=== PATIENT | female | born 1970 | race Two or more races ===

== ENCOUNTER 2016-08-11 08:27 | Emergency (ER) | payer BC ==
[2016-08-11] MEDS ORDERED: SODIUM CHLORIDE 0.9% 1,000 ML IV STA ×2 (08:53)
--- NOTE | 2016-08-11 08:55 | ED ---
General Adult HPI - General Chief complaint: Recheck/Abnormal Lab/Rx Stated complaint: thyroid problems Time Seen by Provider: 08/11/16 08:47 Source: patient, RN notes reviewed Mode of arrival: ambulatory Limitations: no limitations - History of Present Illness Initial comments: Patient 46-year-old female who presents emergency room today with a chief complaint of increased vaginal bleeding. She does admit to a history of thyroid disease. States when her thyroid is acting up she has heavy periods. She states that she's been having heavy bleeding for the last 5 days. States beginning to feel somewhat lightheaded and dizzy at times when standing up. Patient does admit that she has switched doctors. She states she had her thyroid checked out 3 weeks ago was prescribed new medication to begin to take. She states it is at the pharmacy and she has not gotten around to getting it picked up. She states she's been taking her previous medication. Patient denies any other complaints or symptoms. Patient denies any recent fever, chills , shortness of breath, chest pain, back pain, nausea or vomiting, numbness or tingling, dysuria or hematuria, constipation or diarrhea, headaches or visual changes, or any other complaints. - Related Data Home Medications Medication Instructions Recorded Confirmed Cholecalciferol [Vitamin D3] 2,000 unit PO DAILY 08/11/16 08/11/16 Levothyroxine Sodium [Synthroid] 125 mcg PO DIRECTED 08/11/16 08/11/16 Previous Rx's Medication Instructions Recorded Nitrofurantoin Monohyd/M-Cryst 100 mg PO Q12HR #14 cap 08/11/16 [Macrobid] Allergies Allergy/AdvReac Type Severity Reaction Status Date / Time No Known Allergies Allergy Verified 08/11/16 09:23 Review of Systems ROS Statement: Those systems with pertinent positive or pertinent negative responses have been documented in the HPI. ROS Other: All systems not noted in ROS Statement are negative. Past Medical History Past Medical History: Thyroid Disorder History of Any Multi-Drug Resistant Organisms: None Reported Past Surgical History: No Surgical Hx Reported Past Psychological History: No Psychological Hx Reported Smoking Status: Never smoker Past Alcohol Use History: Occasional Past Drug Use History: None Reported General Exam - General Exam Comments Initial Comments: General: The patient is awake and alert, in no distress, and does not appear acutely ill. Eye: Pupils are equal, round and reactive to light, extra-ocular movements are intact. No nystagmus. There is normal conjunctiva bilaterally. No signs of icterus. Ears, nose, mouth and throat: There are moist mucous membranes and no oral lesions. Neck: The neck is supple, there is no tenderness or JVD. Cardiovascular: There is a regular rate and rhythm. No murmur, rub or gallop is appreciated. Respiratory: Lungs are clear to auscultation, respirations are non-labored, breath sounds are equal. No wheezes, stridor, rales, or rhonchi. Gastrointestinal: Soft, non-distended, non-tender abdomen without masses or organomegaly noted. There is no rebound or guarding present. No CVA tenderness. Bowel sounds are unremarkable. Musculoskeletal: Normal ROM, no tenderness. Strength 5/5. Sensation intact. Pulses equal bilaterally 2+. Neurological: A&O x 3. CN II-XII intact, There are no obvious motor or sensory deficits. Coordination appears grossly intact. Speech is normal. Skin: Skin is warm and dry and no rashes or lesions are noted. Psychiatric: Cooperative, appropriate mood & affect, normal judgment. Limitations: no limitations Course Vital Signs 08/11/16 08:40 Temperature 99.0 F Pulse Rate 105 H Respiratory 18 Rate Blood Pressure 156/93 O2 Sat by Pulse 98 Oximetry EKG Findings - EKG Comments: EKG Findings:: EKG performed at 0926: Shows sinus bradycardia at 59 bpm. VA interval 124. QRS 92. QT/QTc 446/441. No acute ST changes. Medical Decision Making - Medical Decision Making Patient reexamined at this time shows no signs of distress. She is resting comfortably in stretcher does admit that she's feeling better after fluids. Her labs been reviewed hemoglobin stable. She does admit she had bleeding for the last month. She was advised that she should follow up with LITHOGRAPH OPERATOR. Patient 's states still pending at this time. She does admit that she has medication that she has not picked up from the family doctor 3 weeks ago at the pharmacy that she is began taking. Advised to start this medication. Advised to follow- up the family doctor for further evaluation of her thyroid. Patient does admit to some increased urinary frequency. Does have vaginal bleeding. Large amount of blood in the urinalysis with few white cells. Will be given a course of antibiotics as culture pending. At this time patient is comfortable feeling better will be discharged home advised increased fluids and follow-up as discussed. - Lab Data Result diagrams: 08/11/16 09:10 08/11/16 09:10 Lab Results 08/11/16 08/11/16 08/11/16 Range/Units 09:10 09:10 09:10 WBC 9.5 (3.8-10.6) k/uL RBC 3.89 (3.80-5.40) m/uL Hgb 12.3 (11.4-16.0) gm/dL Hct 37.8 (34.0-46.0) % MCV 97.1 (80.0-100.0) fL MCH 31.6 (25.0-35.0) pg MCHC 32.5 (31.0-37.0) g/dL RDW 12.5 (11.5-15.5) % Plt Count 383 (150-450) k/uL Neutrophils % 75 % Lymphocytes % 18 % Monocytes % 4 % Eosinophils % 1 % Basophils % 1 % Neutrophils # 7.1 (1.3-7.7) k/uL Lymphocytes # 1.7 (1.0-4.8) k/uL Monocytes # 0.4 (0-1.0) k/uL Eosinophils # 0.1 (0-0.7) k/uL Basophils # 0.1 (0-0.2) k/uL PT (9.0-12.0) sec INR (<1.1) APTT (22.0-30.0) sec Sodium 141 (137-145) mmol/L Potassium 4.3 (3.5-5.1) mmol/L Chloride 108 H (98-107) mmol/L Carbon Dioxide 23 (22-30) mmol/L Anion Gap 10 mmol/L BUN 8 (7-17) mg/dL Creatinine 0.65 (0.52-1.04) mg/dL Est GFR (MDRD) Af Amer >60 (>60 ml/min/1.73 sqM) Est GFR (MDRD) Non-Af >60 (>60 ml/min/1.73 sqM) Glucose 104 H (74-99) mg/dL Calcium 9.5 (8.4-10.2) mg/dL Total Bilirubin 0.6 (0.2-1.3) mg/dL AST 20 (14-36) U/L ALT 26 (9-52) U/L Alkaline Phosphatase 58 (38-126) U/L Total Protein 7.8 (6.3-8.2) g/dL Albumin 4.3 (3.5-5.0) g/dL Urine Color Urine Appearance (Clear) Urine pH (5.0-8.0) Ur Specific [place] (1.001-1.035) Urine Protein (Negative) Urine Glucose (UA) (Negative) Urine Ketones (Negative) Urine Blood (Negative) Urine Nitrite (Negative) Urine Bilirubin (Negative) Urine Urobilinogen (<2.0) mg/dL Ur Leukocyte Esterase (Negative) Urine RBC (0-5) /hpf Urine WBC (0-5) /hpf Ur Squamous Epith Cells (0-4) /hpf Urine HCG, Qual Not Detected (Not Detectd) 08/11/16 08/11/16 Range/Units 09:10 09:10 WBC (3.8-10.6) k/uL RBC (3.80-5.40) m/uL Hgb (11.4-16.0) gm/dL Hct (34.0-46.0) % MCV (80.0-100.0) fL MCH (25.0-35.0) pg MCHC (31.0-37.0) g/dL RDW (11.5-15.5) % Plt Count (150-450) k/uL Neutrophils % % Lymphocytes % % Monocytes % % Eosinophils % % Basophils % % Neutrophils # (1.3-7.7) k/uL Lymphocytes # (1.0-4.8) k/uL Monocytes # (0-1.0) k/uL Eosinophils # (0-0.7) k/uL Basophils # (0-0.2) k/uL PT 10.1 (9.0-12.0) sec INR 1.0 (<1.1) APTT 24.6 (22.0-30.0) sec Sodium (137-145) mmol/L Potassium (3.5-5.1) mmol/L Chloride (98-107) mmol/L Carbon Dioxide (22-30) mmol/L Anion Gap mmol/L BUN (7-17) mg/dL Creatinine (0.52-1.04) mg/dL Est GFR (MDRD) Af Amer (>60 ml/min/1.73 sqM) Est GFR (MDRD) Non-Af (>60 ml/min/1.73 sqM) Glucose (74-99) mg/dL Calcium (8.4-10.2) mg/dL Total Bilirubin (0.2-1.3) mg/dL AST (14-36) U/L ALT (9-52) U/L Alkaline Phosphatase (38-126) U/L Total Protein (6.3-8.2) g/dL Albumin (3.5-5.0) g/dL Urine Color Light Red Urine Appearance Clear (Clear) Urine pH 6.0 (5.0-8.0) Ur Specific [place] 1.013 (1.001-1.035) Urine Protein Trace H (Negative) Urine Glucose (UA) Negative (Negative) Urine Ketones Negative (Negative) Urine Blood Moderate H (Negative) Urine Nitrite Negative (Negative) Urine Bilirubin Negative (Negative) Urine Urobilinogen <2.0 (<2.0) mg/dL Ur Leukocyte Esterase Trace H (Negative) Urine RBC >182 H (0-5) /hpf Urine WBC 19 H (0-5) /hpf Ur Squamous Epith Cells 1 (0-4) /hpf Urine HCG, Qual (Not Detectd) Disposition Clinical Impression: Dysfunctional uterine bleeding, UTI (urinary tract infection) Disposition: HOME SELF-CARE Condition: Good Instructions: Dysfunctional Uterine Bleeding (ED) Additional Instructions: Please follow-up with family doctor and LITHOGRAPH OPERATOR as discussed. Please return here to the emergency room symptoms increase worsen or for any other concerns. Prescriptions: Nitrofurantoin Monohyd/M-Cryst [Macrobid] 100 mg PO Q12HR #14 cap Referrals: Grady Mckeon DO [Primary Care Provider] - 1-2 days Time of Disposition: 10:02
[2016-08-11 09:40] LABS: Basophils # (A) 0.1 k/uL (0-0.2); Basophils % (A) 1 %; CH 31.9; Eosinophils # (A) 0.1 k/uL (0-0.7); Eosinophils % (A) 1 %; HCT 37.8 % (34.0-46.0); HDW 2.17; HGB 12.3 gm/dL (11.4-16.0); Luc # (Auto) 0.16; Luc % (Auto) 2; Lymphocytes # (A) 1.7 k/uL (1.0-4.8); Lymphocytes % (A) 18 %; MCH 31.6 pg (25.0-35.0); MCHC 32.5 g/dL (31.0-37.0); MCV 97.1 fL (80.0-100.0); Mean Platelet Volume 6.6; Monocytes # (A) 0.4 k/uL (0-1.0); Monocytes % (A) 4 %; Neutrophils # (A) 7.1 k/uL (1.3-7.7); Neutrophils % (A) 75 %; RBC 3.89 m/uL (3.80-5.40); RDW 12.5 % (11.5-15.5); WBC 9.5 k/uL (3.8-10.6); WBC (Perox) 9.63
[2016-08-11 09:48] LABS: Partial Thromboplastin Time 24.6 sec (22.0-30.0); Prothrombin Time 10.1 sec (9.0-12.0)
[2016-08-11 09:50] LABS: Appearance,Urine Clear (Clear); Bilirubin,Urine Negative (Negative); Glucose,Urine (UA) Negative (Negative); Ketones,Urine Negative (Negative); Leukocyte Esterase,Urine Trace (Negative); Nitrite,Urine Negative (Negative); Particle Count 2082; Protein,Urine Trace (Negative); RBC,Urine >182 /hpf (0-5); Specific Gravity,Urine 1.013 (1.001-1.035); Squamous Epithelial Cell,Urine 1 /hpf (0-4); UA Billing (MACRO vs. MICRO) MICRO; Urobilinogen,Urine <2.0 mg/dL (<2.0); WBC,Urine 19 /hpf (0-5)
[2016-08-11 09:51] LABS: ALT 26 U/L (9-52); AST 20 U/L (14-36); Alkaline Phosphatase 58 U/L (38-126); Anion Gap 10 mmol/L; Blood Urea Nitrogen 8 mg/dL (7-17); Calcium 9.5 mg/dL (8.4-10.2); Carbon Dioxide 23 mmol/L (22-30); Chloride 108 mmol/L (98-107); Glucose 104 mg/dL (74-99); Non-African American GFR(MDRD) >60 (>60 ml/min/1.73 sqM); Potassium 4.3 mmol/L (3.5-5.1); Sodium 141 mmol/L (137-145); Total Bilirubin 0.6 mg/dL (0.2-1.3); Total Protein 7.8 g/dL (6.3-8.2)
[2016-08-11 10:17] VITALS: BP 142/81; PULSE 60; RESP 17; TEMP 98
== END 2016-08-11 10:20 | disposition home or self-care (01) ==
LOC: EC 08:27
DX: N39.0 Urinary tract infection, site not specified (principal); N93.8 Other specified abnormal uterine and vaginal bleeding; E07.9 Disorder of thyroid, unspecified; Z79.899 Other long term (current) drug therapy
CPT/HCPCS: 36415; 80053; 81001; 81025; 84439; 84443; 85025; 85610; 85730; 93005; 99284

== ENCOUNTER 2017-05-24 09:17 | Observation (INO) | payer BC, OTHER ==
[2017-05-23 09:27] VITALS: BMI 29.8
[~2017-05-24 09:17] MED LIST: DEXAMETHASONE SOD PHOSPHATE 10 MG/ML 1 ML VIAL IV ONE; LIDOCAINE 1% 20 ML VIAL (10MG/ML) FOR IV START INTRADERMA PRN; MIDAZOLAM 2 MG/2 ML VIAL IV PRN; ONDANSETRON 4 MG/2 ML VIAL IVP ONE; SCOPOLAMINE 1.5MG/72HR PATCH TRANSDERM ONE; ceFAZolin IN SWFI 2 GM/20 ML SYRINGE IVP ONE
[2017-05-24] MEDS: LACTATED RINGERS 1,000 ML IV SCH ×3 (09:38→18:41)
--- NOTE | 2017-05-24 09:46 | P.HPOB ---
History of Present Illness H&P Date: 05/24/17 Chief Complaint: Dysmenorrhea and menorrhagia La is a 46-year-old female with heavy vaginal bleeding and passage of baseball size clots with her cycles. This is been going on for more than a year in her symptoms seem to be worsening. Due to the lack large size for clots she is often unable to leave the house or function at all due to the amount of pain it is causing. Discussed with the patient treatment options she had Darrell mead on hormonal management and well and ablation may help due to the dysmenorrhea is also possible make her symptoms of pain worse. Therefore we are moving forward with a robotic-assisted laparoscopic hysterectomy possible IZZY, possible BSO. Risks/benefits/alternatives to this procedure were discussed with the patient in detail and all questions were answered for her prior to proceeding to the operating room. Risks did include but were not limited to damage to bladder, bowel, vascular injuries, nerve damage, bleeding and infection. On physical exam vital signs are stable and afebrile. Heart regular, lungs clear, extremities are without pain. Osteopathic exams unremarkable. Pelvic exam generally speaking is also unremarkable. Assessment menorrhagia and dysmenorrhea. Plan robotic-assisted laps up hysterectomy possible IZZY/BSO Past Medical History Past Medical History: Thyroid Disorder Additional Past Medical History / Comment(s): hx irregular periods with heavy vaginal bleeding History of Any Multi-Drug Resistant Organisms: None Reported Past Surgical History: No Surgical Hx Reported Past Anesthesia/Blood Transfusion Reactions: No Reported Reaction Additional Past Anesthesia/Blood Transfusion Reaction / Comment(s): pt states has never received anesthesia Smoking Status: Never smoker - Past Family History Mother Family Medical History: No Reported History Medications and Allergies Home Medications Medication Instructions Recorded Confirmed Type Cholecalciferol [Vitamin D3] 2,000 unit PO DAILY 08/11/16 05/24/17 History Levothyroxine Sodium [Synthroid] 125 mcg PO DAILY 08/11/16 05/24/17 History Allergies Allergy/AdvReac Type Severity Reaction Status Date / Time No Known Allergies Allergy Verified 05/24/17 09:26 Exam Osteopathic Statement: *. No significant issues noted on an osteopathic structural exam other than those noted in the History and Physical/Consult. - Vital Signs Vital signs: Vital Signs Temp Pulse Resp BP Pulse Ox 05/24/17 09:29 98.1 F 69 16 170/95 96
[2017-05-24] MEDS ORDERED: NEOSTIGMINE 1 MG/ML 10 ML VIAL ONE (09:50)
[2017-05-24] MEDS ORDERED: MIDAZOLAM 2 MG/2 ML VIAL ONE (09:50)
[2017-05-24] MEDS ORDERED: ePHEDrine SULFATE/0.9% NACL/PF 50 MG/5 ML SYRINGE IV ONE (09:50)
[2017-05-24] MEDS ORDERED: SUCCINYLCHOLINE CHLORIDE 100 MG/5 ML SYR IV ONE (09:50)
[2017-05-24] MEDS ORDERED: GLYCOPYRROLATE 0.2 MG/ML 2 ML VIAL ONE (09:50)
[2017-05-24] MEDS ORDERED: LIDOCAINE 1% INJ 10MG/ML (20 ML MDV) ONE (09:50)
[2017-05-24] MEDS ORDERED: ROCURONIUM BROMIDE 10 MG/ML 10 ML VIAL IV ONE (09:50)
[2017-05-24] MEDS ORDERED: KETOROLAC 30 MG/ML 1 ML VIAL ONE (09:50)
[2017-05-24] MEDS ORDERED: PROPOFOL 10 MG/ML 20 ML VIAL IV ONE (09:50)
[2017-05-24] MEDS ORDERED: fentaNYL (PF) 50 MCG/ML 2 ML AMP ONE (09:50)
[2017-05-24] MEDS ORDERED: BUPIVACAINE (PF) 0.5% 30 ML VIAL SQ ONE (10:13)
[2017-05-24] MEDS ORDERED: VASOPRESSIN 20 UNIT/ML 1 ML VIAL SQ ONE (10:45)
[2017-05-24] MEDS ORDERED: LACTATED RINGERS 1,000 ML IV ONE (11:26)
[2017-05-24] MEDS ORDERED: ONDANSETRON 4 MG/2 ML VIAL IVP PRN (11:28)
[2017-05-24] MEDS ORDERED: Acetaminophen-Codeine 300-30mg TAB PO PRN ×2 (11:28)
[2017-05-24] MEDS ORDERED: SIMETHICONE 80 MG CHEWABLE PO PRN (11:28)
[2017-05-24] MEDS ORDERED: diphenhydrAMINE 50 MG/ML 1 ML VIAL IVP PRN (11:28)
--- NOTE | 2017-05-24 11:37 | P.OP ---
Date of Procedure: 05/24/17 Preoperative Diagnosis: Menorrhagia and dysmenorrhea Postoperative Diagnosis: Same Procedure(s) Performed: Robotic-assisted laparoscopic vaginal hysterectomy Anesthesia: HILARY Surgeon: Evaristo Lambert Jigmaker #1: Jinny Montoya Estimated Blood Loss (ml): 75 IV fluids (ml): 1,000 Urine output (ml): 300 Pathology: other (Uterus and cervix) Condition: stable Disposition: floor Operative Findings: Normal uterus and fallopian tubes and ovaries. However posterior cul-de-sac was almost completely absent making this a technically challenging case requiring vaginal removal of the uterus and closure vaginally. Description of Procedure: Patient was taken to the operating suite where a general anesthetic was found to be adequate. She was prepped and draped in the normal sterile fashion and placed in the dorsal lithotomy position. Initially a speculum was inserted into the vagina and the anterior lip of the cervix was identified and grasped with a single-tooth tenaculum. Uterus was then sounded to 8 cm and the cup size was measured to 3 cm. A Shayna manipulator was then inserted without difficulty with suture placed at 9 and 3:00 to help with removal of the uterus. Mary cath was placed and other instruments were removed. Gloves were changed and attention was turned to the abdominal portion of the procedure. Initially 2 mL of half percent Marcaine was injected 2 cm above the umbilicus and through this injected anesthetic a 8 mm skin incision was made. Through this incision under direct visualization with an optical trocar and sleeve the camera was inserted. Once peritoneal placement was assured gas was allowed to fully insufflate the abdomen and patient's placement steep Trendelenburg position. Robot was brought in and docked and in the one arm a Metzenbaum scissor was placed in the 2 arm a [place] grasper. At this point did break scrub and go to the console. Observations pelvis were noted. First the left utero-ovarian ligament was identified cauterized and transected. Fallopian tube and broad ligament tissues through the mesosalpinx were then cauterized and cut to the round ligament. Round layer was then cauterized transected and skeletonization of the vascularity on the left side of the uterus was performed using cautery. Once this was freed up best were identified and cauterized. Bladder flap was then identified and undermined with [place] grasper and incised with the scissor this was done across face uterus and the bladder was dissected out of the operative field. Once this was completed the right side of the uterus was developed in a similar fashion. At this point balloon was blown up Shayna manipulator and retroversion of the uterus was performed and uterus was pushed all the way in. Despite bleeding we could feel the cup on the Shayna manipulator and an anterior colpotomy was attempted but was unable to find the blue cup. I did do 2 separate incisions neither of which I can find the blue cup despite palpating it could not locate its position inside the vagina. Uterus is therefore anteverted sharply and despite attempts I could also not find it posteriorly therefore instruments were removed and robot was undocked. At this point we did switch to a vaginal hysterectomy once instruments were in place weighted speculum was inserted into the vagina and an anterior retractor was used. Single-tooth tenaculum was then used to grasp the anterior cervix and with downward traction I did place dilute Pitressin solution circumferentially around the cervix and a knife was used to incise this tissue blunt dissection of the vaginal close off the cervix was then performed. Once this was accomplished I was able to locate an anterior colpotomy and therefore a 90 angle retractor was placed. Radha clamps then used to clamp the remainder of the cardinal ligament tissues this was done in approximately 3 bites per side to separate the vagina cervix and uterus from the vagina. Uterus was then brought out and sent to pathology for evaluation. No bleeding is noted from any of the pedicles therefore the boundaries of the vaginal cuff were identified and grasped with Allis clamps and then the vagina was closed in a running locking fashion as per usual in a vaginal hysterectomy. Hemostasis is noted. Once this was completed, camera was reinserted the abdomen and the abdomen was reinsufflated no bleeding is noted along the pedicles therefore camera was removed and gas was again allowed to expel from the abdomen. At this point Dr. Montoya did do a pair of the incision subcuticularly and I did do a cystoscopy with good flow noted from both ureteral jets. All instruments were then removed sponge, lap, needle counts were all correct 2 and patient was then taken to the recovery room in stable and satisfactory condition. It is noted 8 more cc of 1/2 percent Marcaine was injected around these incisions.
[2017-05-24] MEDS: HYDROmorphone 0.5 MG/0.5 ML SYRINGE IVP PRN ×3 (12:00→12:43)
[2017-05-24 15:27] VITALS: PULSE 76
[2017-05-24] MEDS: KETOROLAC 30 MG/ML 1 ML VIAL IVP PRN (21:03)
[2017-05-25] MEDS: SENNOSIDES-DOCUSATE SODIUM 1 EACH TAB PO SCH ×2 (00:51→07:34)
[2017-05-25] MEDS ORDERED: LEVOTHYROXINE 125 MCG TAB PO SCH (06:30)
[2017-05-25] MEDS: KETOROLAC 30 MG/ML 1 ML VIAL IVP PRN (07:36)
[2017-05-25 07:40] LABS: Basophils % (A) 0 %; Eosinophils % (A) 0 %; HCT 27.5 % (34.0-46.0); Lymphocytes # (A) 1.2 k/uL (1.0-4.8); Lymphocytes % (A) 8 %; MCH 29.1 pg (25.0-35.0); MCHC 31.3 g/dL (31.0-37.0); MCV 92.9 fL (80.0-100.0); Mean Platelet Volume 7.4; Monocytes # (A) 0.7 k/uL (0-1.0); Monocytes % (A) 5 %; Neutrophils % (A) 86 %; Platelet Count 402 k/uL (150-450); RBC 2.95 m/uL (3.80-5.40); RDW 14.5 % (11.5-15.5); WBC 15.2 k/uL (3.8-10.6)
[2017-05-25 07:44] LABS: HGB 8.6 gm/dL (11.4-16.0)
[2017-05-25 08:18] VITALS: BP 111/69; RESP 18; TEMP 98.5
--- NOTE | 2017-05-25 09:14 | P.PN ---
Progress Note - Text Progress Note Date: 05/25/17 La seen and evaluated postop day 1. Overall she is doing well. Her vital signs are stable and afebrile. Heart regular, lungs clear, extremities are without pain. She does have bowel sounds are noted incisions are intact. She has not passed flatus has not retried regular diet therefore we will advance diet and monitor this morning with expectation for discharge later today.
--- NOTE | 2017-05-25 12:45 | P.DS ---
Providers Date of admission: 05/24/17 20:32 Expected date of discharge: 05/25/17 Attending physician: Evaristo Lambert Primary care [facility] Course: La is doing very well postop day 1. She is involuting, voiding and she is tolerating her diet. She has not passed flatus. All questions are answered for her at this time prescriptions for Tylenol #3 and Motrin have been provided. She'll follow up with me in 1 week. Her physical exam is generally unremarkable and is unchanged from this morning. Assessment postop day 1. Plan discharged home follow up with me in 1 week. Discharge instructions are thoroughly reviewed and all questions are answered for her prior to her discharge. Patient Condition at Discharge: Good Plan - Discharge Summary Discharge Rx Participant: Yes New Discharge Prescriptions: New Acetaminophen-Codeine 300-30mg [Tylenol #3] 1 tab PO Q4H PRN #30 tablet PRN Reason: Pain Ibuprofen [Motrin] 600 mg PO Q6HR PRN #30 tab PRN Reason: Pain No Action Levothyroxine Sodium [Synthroid] 125 mcg PO DAILY Cholecalciferol [Vitamin D3] 2,000 unit PO DAILY Discharge Medication List Cholecalciferol [Vitamin D3] 2,000 unit PO DAILY 08/11/16 [History] Levothyroxine Sodium [Synthroid] 125 mcg PO DAILY 08/11/16 [History] Acetaminophen-Codeine 300-30mg [Tylenol #3] 1 tab PO Q4H PRN #30 tablet [Rx] Ibuprofen [Motrin] 600 mg PO Q6HR PRN #30 tab 05/25/17 [Rx] Follow up Appointment(s)/Referral(s): Evaristo Lambert DO [Doctor of Osteopathic Medicine] - 1 Week Activity/Diet/Wound Care/Special Instructions: No heavy lifting, limit stairs and driving, and pelvic rest. If any high temperatures, heavy bleeding, or severe pain call my office she is aware to be on complete pelvic rest Discharge Disposition: HOME SELF-CARE
== END 2017-05-25 14:58 | disposition home or self-care (01) ==
LOC: OR 09:17 → 4FBP 11:46 → OR 20:32 → 4FBP 20:32
PROVIDERS: ADMIT Obstetrics & Gynecology; ATTEND Obstetrics & Gynecology
DX: D25.1 Intramural leiomyoma of uterus (principal); N94.6 Dysmenorrhea, unspecified; N92.0 Excessive and frequent menstruation with regular cycle; N88.8 Other specified noninflammatory disorders of cervix uteri; E07.9 Disorder of thyroid, unspecified; Z79.899 Other long term (current) drug therapy
CPT/HCPCS: 58550; S2900; 81025; 85025; 86850; 86900; 86901; 88307

== ENCOUNTER 2017-05-29 20:15 | Inpatient (IN) | payer BC ==
[2017-05-29] MEDS ORDERED: SODIUM CHLORIDE 0.9% 1,000 ML IV STA (20:33)
[2017-05-29 21:11] LABS: Basophils % (A) 0 %; Eosinophils % (A) 0 %; HCT 27.7 % (34.0-46.0); HGB 8.6 gm/dL (11.4-16.0); Lymphocytes # (A) 0.6 k/uL (1.0-4.8); Lymphocytes % (A) 3 %; MCH 29.5 pg (25.0-35.0); Monocytes # (A) 0.5 k/uL (0-1.0); Monocytes % (A) 3 %; Neutrophils # (A) 14.7 k/uL (1.3-7.7); Neutrophils % (A) 93 %; Platelet Count 327 k/uL (150-450); RBC 2.92 m/uL (3.80-5.40); RDW 15.5 % (11.5-15.5); WBC 15.9 k/uL (3.8-10.6)
--- NOTE | 2017-05-29 21:14 | ED ---
General Adult HPI - General Chief complaint: Abdominal Pain Stated complaint: Intra Abd Abcess Time Seen by Provider: 05/29/17 20:24 Source: patient, EMS, RN notes reviewed, old records reviewed Mode of arrival: EMS Limitations: no limitations - History of Present Illness Initial comments: Chief complaint and history of present illness this is a 46-year-old female who had a hysterectomy 5 days ago. This morning the patient went to more the hospital because of increased pain to her lower abdomen. While there was noted patient had a fever of 100.4. White count 20,000. Pulses 1:30. CAT scan performed at that facility showed the possibility of multiple pelvic abscesses. The patient received IV fluids as well as vancomycin and Zosyn prior to being transferred to this hospital. On discharge from the other facility her vital signs show temperature 37.6 pulse 112 pulse ox 90% room air blood pressure 114/ 55. - Related Data Home Medications Medication Instructions Recorded Confirmed Cholecalciferol [Vitamin D3] 2,000 unit PO DAILY 08/11/16 05/24/17 Levothyroxine Sodium [Synthroid] 125 mcg PO DAILY 08/11/16 05/24/17 Previous Rx's Medication Instructions Recorded Acetaminophen-Codeine 300-30mg 1 tab PO Q4H PRN #30 tablet 05/25/17 [Tylenol #3] Ibuprofen [Motrin] 600 mg PO Q6HR PRN #30 tab 05/25/17 Allergies Allergy/AdvReac Type Severity Reaction Status Date / Time No Known Allergies Allergy Verified 05/24/17 09:26 Review of Systems ROS Statement: Those systems with pertinent positive or pertinent negative responses have been documented in the HPI. Review of systems upon arrival to emergency room no headache or visual acuity changes no chest pain or shortness of breath. She has lower abdominal discomfort. States she was taking, old threes which bound her up. She stopped those symptoms taking ibuprofen only. Denies any difficulty urinating. She had a bowel movement today. No flank pain. All systems are reviewed. Past medical processing significant for hypothyroidism and irregular menstrual cycles and fibroid uterus. Patient had a hysterectomy 5 days ago as noted above. Family history noncontributory no known ALLERGIES. Patient reports nonsmoking and occasional social alcohol use. ROS Other: All systems not noted in ROS Statement are negative. Past Medical History Past Medical History: Thyroid Disorder Additional Past Medical History / Comment(s): hx irregular periods with heavy vaginal bleeding History of Any Multi-Drug Resistant Organisms: None Reported Past Surgical History: Hysterectomy Past Anesthesia/Blood Transfusion Reactions: No Reported Reaction Additional Past Anesthesia/Blood Transfusion Reaction / Comment(s): pt states has never received anesthesia Past Psychological History: No Psychological Hx Reported Smoking Status: Never smoker Past Alcohol Use History: None Reported Past Drug Use History: None Reported - Past Family History Mother Family Medical History: No Reported History General Exam - General Exam Comments Initial Comments: General: The patient is awake and alert, in no distress, patient was transferred from [facility] because of lower abdominal pain and a CAT scan that was suspicious for multiple areas of abscess in the lower pelvis. Patient also had a fever and elevated white count at the other facility. She was started on Zosyn and vancomycin. Vital signs showed a temperature here of 100.0 pulse 107 respiratory rate 18 pulse ox 96% room air blood pressure 120/65. Eye: Pupils are equal, round and reactive to light, extra-ocular movements are intact ; there is normal conjunctiva bilaterally. No signs of icterus. Ears, nose, mouth and throat: There are moist mucous membranes and no oral lesions. Neck: The neck is supple, there is no tenderness . Cardiovascular: Tachycardic heart rate 107. No murmur, rub or gallop is appreciated. Respiratory: Lungs are clear to auscultation, respirations are non-labored, breath sounds are equal. No wheezes, stridor, rales, or rhonchi. Gastrointestinal: Lower abdominal pain. No rebound or referred pain. Patient did have a small bowel movement today Back: There is no tenderness to palpation in the midline. Musculoskeletal: Normal ROM, no tenderness, There is no pedal edema. There is no calf tenderness or swelling. Sensation intact. Pulses equal bilaterally 2+. Neurological: No neuro deficits Skin: Skin is warm and dry and no rashes or lesions are noted. Limitations: no limitations Course Vital Signs 05/29/17 20:18 Temperature 100.0 F H Pulse Rate 107 H Respiratory 18 Rate Blood Pressure 128/65 O2 Sat by Pulse 96 Oximetry Medical Decision Making - Medical Decision Making Medical decision making; Emergency room Dr. Tien Arroyo, on-call PAPER HANGER can see the patient in emergency room. Patient was continued hydration. Labs show white count of 15.9 hemoglobin 8.6 hematocrit 27. \ Dr. Manning saw the patient in emergency room and is writing admission orders and taking over further management. - Lab Data Result diagrams: 05/29/17 21:01 Lab Results 05/29/17 Range/Units 21:01 WBC 15.9 H (3.8-10.6) k/uL RBC 2.92 L (3.80-5.40) m/uL Hgb 8.6 L (11.4-16.0) gm/dL Hct 27.7 L (34.0-46.0) % MCV 95.0 (80.0-100.0) fL MCH 29.5 (25.0-35.0) pg MCHC 31.0 (31.0-37.0) g/dL RDW 15.5 (11.5-15.5) % Plt Count 327 (150-450) k/uL Neutrophils % 93 % Lymphocytes % 3 % Monocytes % 3 % Eosinophils % 0 % Basophils % 0 % Neutrophils # 14.7 H (1.3-7.7) k/uL Lymphocytes # 0.6 L (1.0-4.8) k/uL Monocytes # 0.5 (0-1.0) k/uL Eosinophils # 0.0 (0-0.7) k/uL Basophils # 0.0 (0-0.2) k/uL Disposition Clinical Impression: Status post vaginal hysterectomy Disposition: ADMITTED IP TO THIS HOSP Condition: Serious Referrals: Grady Mckeon DO [Primary Care Provider] - 1-2 days
[2017-05-29] MEDS ORDERED: NALOXONE 0.4 MG/ML 1 ML VIAL IV PRN (21:20)
[2017-05-29 21:25] LABS: ALT 24 U/L (9-52); AST 25 U/L (14-36); Albumin 3.5 g/dL (3.5-5.0); Alkaline Phosphatase 76 U/L (38-126); Anion Gap 11 mmol/L; Blood Urea Nitrogen 7 mg/dL (7-17); Calcium 8.4 mg/dL (8.4-10.2); Carbon Dioxide 23 mmol/L (22-30); Chloride 104 mmol/L (98-107); Glucose 122 mg/dL (74-99); Potassium 3.9 mmol/L (3.5-5.1); Sodium 138 mmol/L (137-145); Total Bilirubin 1.7 mg/dL (0.2-1.3); Total Protein 6.4 g/dL (6.3-8.2)
[2017-05-29] MEDS ORDERED: VANCOMYCIN IV PER PHARMACY 1 EACH MISC MISCELLANE PRN (21:29)
[2017-05-29] MEDS ORDERED: VANCOMYCIN 1,500 MG in SODIUM CHLORIDE 0.9% 250 ML IVPB ONE (21:45)
[2017-05-29] MEDS: PANTOPRAZOLE 40 MG/10 ML VIAL IV SCH (21:53)
--- NOTE | 2017-05-29 22:01 | P.HPOB ---
History of Present Illness H&P Date: 05/29/17 Chief Complaint: Abdominal pain status post hysterectomy. This patient is a pleasant 46-year-old female who underwent a robotic-assisted vaginal hysterectomy on May [address] Lambert. Patient states that she did well postoperatively and was discharged home later on postoperative day #1. White blood cell count on discharge was 15.7 and hemoglobin was 8.7. She states that approximately on postoperative day #2 and 3 she began having increased abdominal discomfort. She did notice that she was having some episodes of feeling hot but did not check her temperature at that time. Patient also states that she had not had a bowel movement since her surgery. Patient was taking oral pain medications fairly regularly and then today her pain became significantly worse and she was having bloating of her lower abdomen and therefore went to her local emergency department in [place] Evaluation there showed a temperature to 37.7C and an elevated white count to 20.2. Patient also had a CAT scan done which demonstrated 2 large complex collections of fluid and small gas collections in the pelvis one measuring 7.4 x 5.3 cm and one measuring 3.6 x 4.0 cm. These were suspicious for pelvic abscesses. Patient also had what appeared to be air in the urinary bladder and also noted to have a fluid-filled distended loops of colon and small bowel consistent with an ileus. There is no evidence of free air in the abdomen. The emergency department at [facility] contacted our emergency department and wished to transfer this patient for further evaluation and treatment. Patient does deny having any vomiting she did have some nausea. She had been tolerating diet for the most part but complained of constipation. She has not noticed any hematuria and has been urinating without difficulty. Patient has already been given a dose of Zosyn and vancomycin at the transferring hospital. At this point she rates her pain 5 out of 10. Review of Systems Constitutional: Reports as per HPI Gastrointestinal: Reports constipation Genitourinary: Reports as per HPI Past Medical History Past Medical History: Thyroid Disorder Additional Past Medical History / Comment(s): hx irregular periods with heavy vaginal bleeding History of Any Multi-Drug Resistant Organisms: None Reported Past Surgical History: Hysterectomy Past Anesthesia/Blood Transfusion Reactions: No Reported Reaction Additional Past Anesthesia/Blood Transfusion Reaction / Comment(s): pt states has never received anesthesia Past Psychological History: No Psychological Hx Reported Smoking Status: Never smoker Past Alcohol Use History: None Reported Past Drug Use History: None Reported - Past Family History Mother Family Medical History: No Reported History Medications and Allergies Home Medications Medication Instructions Recorded Confirmed Type Cholecalciferol [Vitamin D3] 2,000 unit PO DAILY 08/11/16 05/29/17 History Acetaminophen-Codeine 300-30mg 1 tab PO Q4H PRN #30 tablet 05/25/17 05/29/17 Rx [Tylenol #3] Ibuprofen [Motrin] 600 mg PO Q6HR PRN #30 tab 05/25/17 05/29/17 Rx Levothyroxine Sodium [Synthroid] 137 mcg PO DAILY 05/29/17 05/29/17 History Polyethylene Glycol 3350 [Miralax] 17 gm PO DAILY PRN 05/29/17 05/29/17 History Allergies Allergy/AdvReac Type Severity Reaction Status Date / Time No Known Allergies Allergy Verified 05/29/17 21:30 Exam - Vital Signs Vital signs: Vital Signs Temp Pulse Resp BP Pulse Ox 05/29/17 20:18 100.0 F H 107 H 18 128/65 96 Intake and Output 05/29/17 05/29/17 05/29/17 06:59 14:59 22:59 Other: Weight 71.668 kg Patient Weight 05/30/17 06:59 Weight 71.668 kg - OBG Physical Exam Abdomen: Abdomen is mildly distended and diffusely tender in all 4 quadrants. Her incisions appear intact and dry. She has faint bowel sounds. Results CAT scan as above. Result Diagrams: 05/29/17 21:01 05/29/17 21:01 Abnormal Lab Results - Last 24 Hours (Table) 05/29/17 05/29/17 Range/Units 21:01 21:01 WBC 15.9 H (3.8-10.6) k/uL RBC 2.92 L (3.80-5.40) m/uL Hgb 8.6 L (11.4-16.0) gm/dL Hct 27.7 L (34.0-46.0) % Neutrophils # 14.7 H (1.3-7.7) k/uL Lymphocytes # 0.6 L (1.0-4.8) k/uL Glucose 122 H (74-99) mg/dL Total Bilirubin 1.7 H (0.2-1.3) mg/dL Assessment and Plan Assessment: This is a pleasant 46-year-old female 5 days postoperative from a robotic assisted vaginal hysterectomy. Patient appears by CAT scan to have possible pelvic abscess although it is quite unusual to see this only 5 days out from surgery and I did discuss with her the possibility that this may just be clotted blood resulting from her surgery. This certainly could cause her to have a mild white count elevation and a drop in her hemoglobin. Her hemoglobin at this time does appear to be stable from discharge and therefore I do not think there is any active bleeding at this time. The low-grade fever and initial white count of 20 however does appear to be concerning for an early infection. She also appears to have an ileus and this could be caused either by infection and/or blood. There is no evidence of a bowel obstruction at this time. The air and her urinary bladder most likely is secondary to her intraoperative cystoscopy however persistent this would need to be investigated. Her creatinine was normal. Plan at this time is to admit this patient for continued IV antibiotics, bowel rest, and pain control. White blood cell count has decreased from the outside hospital. I did discuss with the patient and her family the possibility that there is other processes going on however at this point we are going to treat her as a postoperative infection and ileus. If she does not improve in a timely fashion then we could consider infectious disease consultation and/or general surgery consultation. All the patient's questions were answered and she agrees with current treatment plan. (1) Status post vaginal hysterectomy Current Visit: Yes Status: Acute Code(s): Z90.710 - ACQUIRED ABSENCE OF BOTH CERVIX AND UTERUS SNOMED Code(s): 074295541 (2) Combined abdominal and pelvic pain Current Visit: Yes Status: Acute Code(s): R10.30 - LOWER ABDOMINAL PAIN, UNSPECIFIED SNOMED Code(s): 560268973 (3) Pelvic abscess Current Visit: Yes Status: Acute Code(s): ACD0230 - SNOMED Code(s): 643239809 (4) Postoperative ileus Current Visit: Yes Status: Acute Code(s): K91.89 - OTH POSTPROCEDURAL COMPLICATIONS AND DISORDERS OF DGSTV SYS; K56.7 - ILEUS, UNSPECIFIED SNOMED Code(s): 129342162
[2017-05-29 22:33] VITALS: BMI 29.8
[2017-05-29] MEDS: HYDROmorphone 0.5 MG/0.5 ML SYRINGE IVP PRN (22:42)
[2017-05-30] MEDS: PIPERACILLIN-TAZOBACTAM 3.375 GM in DEXTROSE/WATER 1 50ML.BAG IVPB SCH ×3 (00:42→17:52)
[2017-05-30 00:45] LABS: Appearance,Urine Clear (Clear); Bilirubin,Urine Negative (Negative); Blood,Urine Large (Negative); Color,Urine Yellow; Glucose,Urine (UA) Negative (Negative); Ketones,Urine Negative (Negative); Leukocyte Esterase,Urine Small (Negative); Protein,Urine Trace (Negative); RBC,Urine >182 /hpf (0-5); Specific Gravity,Urine 1.044 (1.001-1.035); Squamous Epithelial Cell,Urine 3 /hpf (0-4); Urobilinogen,Urine <2.0 mg/dL (<2.0); WBC,Urine 17 /hpf (0-5)
[2017-05-30] MEDS: SODIUM CHLORIDE 0.9% 1,000 ML IV SCH ×3 (01:19→10:50)
[2017-05-30] MEDS: ACETAMINOPHEN TAB 325 MG TAB PO PRN (01:58)
[2017-05-30] MEDS: HYDROmorphone 0.5 MG/0.5 ML SYRINGE IVP PRN ×4 (02:04→13:37)
[2017-05-30] MEDS ORDERED: ACETAMINOPHEN IV (For NPO) 1,000 MG in EMPTY BAG 1 BAG IVPB PRN (02:06)
[2017-05-30] MEDS: VANCOMYCIN 1,250 MG in SODIUM CHLORIDE 0.9% 250 ML IVPB SCH ×3 (05:34→22:17)
[2017-05-30 06:42] LABS: Basophils % (A) 0 %; Eosinophils % (A) 0 %; HCT 25.9 % (34.0-46.0); HGB 8.1 gm/dL (11.4-16.0); Lymphocytes # (A) 0.6 k/uL (1.0-4.8); Lymphocytes % (A) 5 %; MCH 29.2 pg (25.0-35.0); MCHC 31.5 g/dL (31.0-37.0); MCV 92.7 fL (80.0-100.0); Mean Platelet Volume 7.5; Monocytes # (A) 0.5 k/uL (0-1.0); Monocytes % (A) 4 %; Neutrophils # (A) 11.3 k/uL (1.3-7.7); Neutrophils % (A) 91 %; Platelet Count 335 k/uL (150-450); RBC 2.79 m/uL (3.80-5.40); RDW 15.5 % (11.5-15.5); WBC 12.5 k/uL (3.8-10.6)
[2017-05-30 07:01] LABS: Anion Gap 8 mmol/L; Blood Urea Nitrogen 8 mg/dL (7-17); Calcium 7.9 mg/dL (8.4-10.2); Carbon Dioxide 24 mmol/L (22-30); Chloride 103 mmol/L (98-107); Glucose 113 mg/dL (74-99); Potassium 3.6 mmol/L (3.5-5.1); Sodium 135 mmol/L (137-145)
[2017-05-30] MEDS: PANTOPRAZOLE 40 MG/10 ML VIAL IV SCH (09:44)
--- NOTE | 2017-05-30 13:30 | P.PN ---
Progress Note - Text Progress Note Date: 05/30/17 La is seen and evaluated. She did see her this morning then again at noon. Last night she began having severe pain and she was taken to The hospital and she had been diagnosed at that time via CAT scan to have an ileus as well as possible AND some free air in her bladder. In seeing her this morning her white blood cell count that was elevated last night was down to 12 and she has not had a temperatures since late last night. She is voiding without difficulty and she is now passing flatus. She does feel improved and feels less pressure due to that. However she does still have some blood that is coming from her vagina which likely represents potential hematoma that has begun to degrade and liquefy. At this time I have not done a pelvic exam however she continues to have any significant quantity of bleeding further becomes active bleeding will plan to do an exam. That said, the most likely explanation for the blood coming from her vagina is from liquefying blood coming from the vaginal cuff. She does report that now that she is passing some flatus she does feel somewhat better, we'll plan to allow her have liquids this afternoon. I did speak with urology and a recommendation for a cystogram was made so we can verify that there is no damage to her bladder and he felt like the area and her bladder was likely just due to the fact that she had a Mary catheter a few days ago. At this time her vital signs are stable and afebrile. Heart regular, lungs clear, extremities without pain. Her abdomen is soft and mildly distended but her incisions are clean dry and intact. Assessment postop day 5. Plan continue conservative management and IV antibiotics with repeat labs in the morning and will await the cystogram.
--- NOTE | 2017-05-30 15:26 | FL ---
EXAMINATION: Cystogram. CLINICAL DATA: 46-year-old female status post robotic converted to transvaginal hysterectomy on 2017 presented with fever and pain, improved with antibiotics. Outside CT showed air in the bladder, possibly related to instrumentation. Evaluate to exclude fistula. DATE: 05/30/2017 COMPARISON: None FINDINGS: There is nonspecific, nonobstructive bowel gas pattern. No significant stool. Pelvic phlebolith. Following the administration of 300 ml Cystoconray contrast material into the bladder via Mary alden ter, there is normal gradually distention of the bladder noted. AP and lateral views were obtained. Pulsed visualization of the lateral view during both distention a nd voiding shows no abnormal extravasation or fistulous communication from the bladder. IMPRESSION: No evidence for leak or fistula from the bladder.
[2017-05-30] MEDS: IBUPROFEN 600 MG TAB PO PRN (17:03)
--- NOTE | 2017-05-30 17:35 | P.PN ---
Progress Note - Text Progress Note Date: 05/30/17 La was seen and evaluated again this evening. A pelvic exam was done there was scant white blood in the back vagina but the cuff appeared intact. No evidence of laceration or other change the back vagina could be visualized. No significant active bleeding is noted either. She notes that she continues to have some vaginal bleeding but again likely this is what inside the abdomen that is degrading and liquefying and now is able to pass through. She did have a watery stool earlier this afternoon we will have culture sent for C. diff should that happen again. She also spiked a temperature again of 102 and blood cultures are pending. That said she overall looks very good she is able to ambulate without difficulty and she is still voiding without difficulty she denies even noticing that she had a fever. And her pain is essentially well controlled currently. Assessment postop day 5. Plan continue care with intra- medicine consultation and C. diff cultures as well as the advancing diet to full liquid. It is also noted that the cystogram was normal.
[2017-05-31] MEDS: SODIUM CHLORIDE 0.9% 1,000 ML IV SCH ×2 (00:31→10:43)
[2017-05-31] MEDS: PIPERACILLIN-TAZOBACTAM 3.375 GM in DEXTROSE/WATER 1 50ML.BAG IVPB SCH ×4 (00:31→16:43)
[2017-05-31] MEDS: HYDROmorphone 0.5 MG/0.5 ML SYRINGE IVP PRN (02:14)
--- NOTE | 2017-05-31 04:52 | CONS ---
CONSULTATION DATE OF CONSULTATION: 05/30/2007. REASON FOR CONSULTATION: Advice regarding hypothyroidism. Other medical issues requested by Dr. Lambert. HISTORY OF PRESENT ILLNESS: This 46-year-old with past medical history of hypothyroidism, history of irregular periods, menometrorrhagia being followed by Dr. Grady Mckeon in the outpatient setting recently had a total abdominal hysterectomy. The patient apparently presented to [facility] with complaints of abdominal pain, constipation and multiple symptomatology and the CT scan showed multiple loculated fluid and the patient was subsequently referred to [facility] for further evaluation and treatment. CT scan also showed some ileus and some free air in the bladder also. The patient also has some diarrhea after admission. Broad-spectrum IV antibiotics has been initiated. Per Urology a cystogram is being arranged at this time. There is no history of fever, rigors. No history of headache, loss of consciousness, seizures. PAST MEDICAL HISTORY: Hypothyroidism, history of hysterectomy, history of menorrhagia. MEDICATIONS: MiraLAX 17 g daily p.r.n., Synthroid 136 mcg p.o. daily. Motrin 600 mg b.i.d., vitamin D3 2000 daily. Tylenol #3 one tab q4h prn for pain. ALLERGIES: None. FAMILY HISTORY: History of hypertension and hyperlipidemia in the family. SOCIAL HISTORY: No history of smoking. Occasional alcohol. REVIEW OF SYSTEMS: ENT: No diminished vision or hearing. Cardiovascular: No angina or palpitations. Respirations: No cough. GI as mentioned earlier. Nervous system: No numbness, weakness. Allergy/Immunology: No asthma or hay fever. MUSCULOSKELETAL: As mentioned earlier. Hematology no history of anemia. Endocrine: Hypothyroidism. Constitutional: As mentioned earlier. Dermatology: Negative. Rheumatology: Negative. Psychiatric: As mentioned earlier. mentioned earlier. PHYSICAL EXAM: Patient alert and oriented times three. Pulse is 111, blood pressure ntd respiration 20, temperature 102.1, pulse ox 99% on room air. HEENT is conjunctivae normal. Oral mucosa moist. Neck is no jugular venous distention. No carotid bruit. No lymph node enlargement. Cardiovascular system: S1, S2. Respiratory: Breath sounds diminished in the bases. No rhonchi. No crackles. ABDOMEN: Soft. Mild diffuse distention. Mild diffuse discomfort. No guarding. No rigidity. No mass palpable. No ascites. Bowel sounds present. Legs: No edema and no swelling. NERVOUS SYSTEM: Higher functions as mentioned earlier. Moves all four limbs. No focal motor or sensory deficits. Lymphatics: No lymph nodes palpable in the neck, axillae or groin. SKIN: No ulcer, rash or bleeding. LAB STUDIES: WBC 12.2, hemoglobin is 8.1, sodium 135, glucose 113. UA mostly RBCs. C diff is negative. ASSESSMENT: 1. Abdominal pain, discomfort status post recent abdominal hysterectomy. 2. Increased WBC. 3. Anemia normocytic. 4. History of hypothyroidism. RECOMMENDATIONS AND DISCUSSION: In this 46-year-old woman who presented after surgery, at this time, patient started on broad-spectrum IV antibiotics. I would follow the cultures and recommend repeat labs. Otherwise, DVT prophylaxis. Incentive spirometry. Baseline chest x-ray. We will follow the patient closely with you. Thank you Dr. Lambert for letting us participate in the care of this patient. The patient is having continued fever and infectious disease evaluation may also be sought. We will follow the patient closely. JACQUI / ISACN: [id number] / FRANKIE
[2017-05-31] MEDS: VANCOMYCIN 1,250 MG in SODIUM CHLORIDE 0.9% 250 ML IVPB SCH ×3 (05:48→22:08)
[2017-05-31] MEDS: LEVOTHYROXINE 137 MCG TAB PO SCH (06:10)
[2017-05-31 07:36] LABS: Prothrombin Time 10.1 sec (9.0-12.0)
[2017-05-31 08:03] LABS: Basophils % (A) 0 %; Eosinophils # (A) 0.2 k/uL (0-0.7); Eosinophils % (A) 2 %; HCT 26.2 % (34.0-46.0); HGB 8.3 gm/dL (11.4-16.0); Lymphocytes # (A) 0.8 k/uL (1.0-4.8); Lymphocytes % (A) 6 %; MCH 29.5 pg (25.0-35.0); MCHC 31.7 g/dL (31.0-37.0); MCV 93.3 fL (80.0-100.0); Mean Platelet Volume 7.3; Monocytes # (A) 0.6 k/uL (0-1.0); Monocytes % (A) 5 %; Neutrophils # (A) 10.7 k/uL (1.3-7.7); Neutrophils % (A) 86 %; Platelet Count 337 k/uL (150-450); RBC 2.81 m/uL (3.80-5.40); RDW 15.3 % (11.5-15.5); WBC 12.5 k/uL (3.8-10.6)
[2017-05-31] MEDS: PANTOPRAZOLE 40 MG/10 ML VIAL IV SCH (08:44)
[2017-05-31] MEDS: HEPARIN SODIUM,PORCINE 5,000 UNIT/ML 1 ML VIAL SQ SCH ×2 (08:44→20:57)
[2017-05-31 08:45] LABS: ALT 27 U/L (9-52); AST 28 U/L (14-36); Albumin 3.2 g/dL (3.5-5.0); Alkaline Phosphatase 80 U/L (38-126); Anion Gap 9 mmol/L; Blood Urea Nitrogen 6 mg/dL (7-17); Calcium 8.3 mg/dL (8.4-10.2); Carbon Dioxide 24 mmol/L (22-30); Chloride 107 mmol/L (98-107); Glucose 94 mg/dL (74-99); Sodium 140 mmol/L (137-145); Total Bilirubin 1.2 mg/dL (0.2-1.3); Total Protein 6.2 g/dL (6.3-8.2)
[2017-05-31 08:58] LABS: Potassium 3.8 mmol/L (3.5-5.1)
[2017-05-31] MEDS: IBUPROFEN 600 MG TAB PO PRN ×2 (09:05→15:52)
--- NOTE | 2017-05-31 09:08 | XR ---
EXAMINATION TYPE: XR chest 1V portable DATE OF EXAM: 05/31/2017 COMPARISON: NONE HISTORY: Congestive heart failure TECHNIQUE: Single frontal view of the chest is obtained. FINDINGS: Question some airspace disease in the left lower lobe. Exam is expiratory and rotated. Hea rt size may be accentuated by rotation. IMPRESSION: Difficult to exclude pneumonia versus atelectasis. Follow-up PA and lateral chest x-ray recommended.
--- NOTE | 2017-05-31 10:32 | P.PN ---
Progress Note - Text Progress Note Date: 05/31/17 La seen in evaluation today. She is ambulating, voiding and she is tolerating her diet. She still has some diarrhea but says that there is slightly more formed nature to it since last night. She remained essentially afebrile with a T-max of 99 last night. Her white count however did not decrease and remained at 12.5. Likely a infectious disease consultation will be requested. Otherwise her incisions remained clean dry and intact and she grossly reports that she feels better and that she is requesting a regular diet at this time. We will advance the diet and continue IV antibiotics and await other consultations. Otherwise patient remains from a surgical standpoint stable.
--- NOTE | 2017-05-31 14:47 | PN ---
PROGRESS NOTE DATE OF SERVICE: 05/31/2017 This is a 46-year-old woman was admitted with abdominal pain, had a recent abdominal hysterectomy. The white count is elevated. Patient is on broad-spectrum IV antibiotics. No chest pain. No palpitations. No fever. PHYSICAL EXAM: Alert and oriented x3. Pulse is 97, blood pressure 120/73, respiration 18, temperature 98.2, pulse ox 98% on room air. HEENT: Conjunctivae normal. NECK: No jugular venous distention. CARDIOVASCULAR: S1, S2. RESPIRATORY: Breath sounds diminished in the bases. No rhonchi, no crackles. ABDOMEN: Soft, status post recent surgery. Mild diffuse discomfort. No guarding. No rigidity. No mass palpable. No rebound tenderness. Bowel sounds present. LEGS: No edema, no cyanosis. NERVOUS SYSTEM: No focal deficits. LABS: WBC 12.2, hemoglobin is 8.3. ASSESSMENT: 1. Abdominal pain, discomfort, status post recent abdominal hysterectomy. 2. Increased WBC. 3. Anemia normocytic. 4. History of hypothyroidism. RECOMMENDATIONS AND DISCUSSION: I recommend to continue current management and symptomatic treatment at this time. I recommend to continue IV antibiotics. Otherwise, closely monitor. Further recommendations to follow. Closely follow with Dr. Lambert. 1. History of. MMODL / IJN: [id number] /
[2017-05-31] MEDS: METOCLOPRAMIDE 5 MG/ML 2 ML VIAL IVP PRN (18:32)
[2017-05-31] MEDS: ACETAMINOPHEN TAB 325 MG TAB PO PRN (20:56)
[2017-06-01] MEDS: IBUPROFEN 600 MG TAB PO PRN (00:10)
[2017-06-01] MEDS: PIPERACILLIN-TAZOBACTAM 3.375 GM in DEXTROSE/WATER 1 50ML.BAG IVPB SCH ×3 (00:11→16:00)
[2017-06-01] MEDS: LEVOTHYROXINE 137 MCG TAB PO SCH (06:03)
[2017-06-01] MEDS: VANCOMYCIN 1,250 MG in SODIUM CHLORIDE 0.9% 250 ML IVPB SCH (06:03)
[2017-06-01] MEDS: SODIUM CHLORIDE 0.9% 1,000 ML IV SCH ×4 (06:03→18:52)
[2017-06-01 07:42] LABS: Anion Gap 8 mmol/L; Blood Urea Nitrogen 9 mg/dL (7-17); Calcium 8.2 mg/dL (8.4-10.2); Carbon Dioxide 22 mmol/L (22-30); Chloride 109 mmol/L (98-107); Glucose 100 mg/dL (74-99); Sodium 139 mmol/L (137-145)
[2017-06-01 07:52] LABS: Potassium 3.6 mmol/L (3.5-5.1)
[2017-06-01] MEDS: PANTOPRAZOLE 40 MG TABLET PO SCH (08:28)
[2017-06-01] MEDS: HEPARIN SODIUM,PORCINE 5,000 UNIT/ML 1 ML VIAL SQ SCH ×2 (08:28→20:52)
[2017-06-01] MEDS: HYDROmorphone 4 MG TABLET PO PRN ×3 (08:36→17:01)
[2017-06-01 09:29] LABS: Basophils % (A) 0 %; Eosinophils # (A) 0.3 k/uL (0-0.7); Eosinophils % (A) 2 %; HCT 28.2 % (34.0-46.0); HGB 8.8 gm/dL (11.4-16.0); Lymphocytes # (A) 0.9 k/uL (1.0-4.8); Lymphocytes % (A) 7 %; MCH 29.2 pg (25.0-35.0); MCHC 31.2 g/dL (31.0-37.0); MCV 93.6 fL (80.0-100.0); Mean Platelet Volume 7.3; Monocytes # (A) 0.8 k/uL (0-1.0); Monocytes % (A) 7 %; Neutrophils # (A) 9.9 k/uL (1.3-7.7); Neutrophils % (A) 81 %; Platelet Count 420 k/uL (150-450); RBC 3.01 m/uL (3.80-5.40); RDW 15.2 % (11.5-15.5); WBC 12.1 k/uL (3.8-10.6)
[2017-06-01] MEDS ORDERED: RX INFO: IV CONTRAST WAS GIVEN 1 EACH MISC MISCELLANE PRN (09:54)
[2017-06-01] MEDS: IOHEXOL 350 MG/ML 25 ML BOTTLE (ORAL USE) PO PRN ×2 (10:31→11:31)
[2017-06-01] MEDS: ONDANSETRON 4 MG/2 ML VIAL IVP PRN (13:36)
--- NOTE | 2017-06-01 13:48 | CT ---
EXAMINATION TYPE: CT abdomen pelvis w con DATE OF EXAM: 06/01/2017 COMPARISON: NONE HISTORY: Possible infection post op hysterectomy; possible abscess CT DLP: 764.70 mGycm Automated exposure control for dose reduction was used. TECHNIQUE: Helical acquisition of images from the lung bases through the pelvis have been completed. CONTRAST: Performed with Oral Contrast and with IV Contrast, patient injected with 100 ml mL of Omnipaque 300. FINDINGS: LUNG BASES: Some basilar atelectatic changes are present, there is associated effusion which is minim al. AORTA: No significant abnormality is appreciated. LIVER/GB: No significant abnormality is appreciated. PANCREAS: No significant abnormality is seen. SPLEEN: No significant abnormality is seen. ADRENALS: No significant abnormality is seen. KIDNEYS: Punctate calcifications are present within the left kidney which are nonobstructive, there a re 3 measuring only 1 to 2 mm. REPRODUCTIVE ORGANS: Cystic focus is present in the left hemipelvis measuring 3 cm. Right ovary, adne xal structures may be present seen on axial images 76 and 77. Uterus is absent. BOWEL: There are fluid-filled loops of small bowel with wall thickening scattered within the abdomen . Bowel loops are distended however no definite obstruction identified. Oral contrast does not course distally likely due to the timing of the exam. FREE AIR: No Free Air visible. ASCITES: There is free fluid within the abdomen. PELVIC ADENOPATHY: None visualized. There is a low dense collection mixed with air with enhancing wa ll in the pelvis measuring approximately 9.5 x 7.8 x 6 cm deep within the pelvis. Somewhat focal flui d collection in the left hemipelvis seen on axial image 72 is also extraluminal and may have an enhan cing wall. It measures approximately 4.6 cm in greatest dimension. RETROPERITONEAL ADENOPATHY: No Retroperitoneal Adenopathy visible. URINARY BLADDER: No significant abnormality is seen. Increased attenuation anterior abdominal wall likely due to injections. OSSEOUS STRUCTURES: There is some deformity of the pubic symphysis, cortical thickening is present a long the ramus on the right, I question some old trauma. IMPRESSION: CORRELATE FOR POSSIBLE PELVIC ABSCESS, ONE WITHIN THE PELVIS POSTERIOR TO THE BLADDER AND SECOND IN T HE LEFT HEMIPELVIS DESCRIBED. THERE IS LIKELY AN ASSOCIATED ILEUS RATHER THAN BOWEL OBSTRUCTION, F OLLOW-UP PLAIN FILM COULD BE PERFORMED TO ASSESS FOR INTERVAL TRANSIT OF THE CONTRAST MATERIAL WITHIN THE COLON TO EXCLUDE BOWEL OBSTRUCTION. ASCITES. NONOBSTRUCTIVE LEFT NEPHROLITHIASIS. PROBABLE BASIL AR ATELECTASIS AND ASSOCIATED EFFUSIONS. CASE DISCUSSED WITH REFERRING CLINICIAN AT THE TIME OF INTER PRETATION OF THE EXAM.
--- NOTE | 2017-06-01 15:42 | CDI ---
Last Revision, March 2017 Documentation Clarification Form Date: 06/01/2017 3:33:00 PM From: Sally Gutierrez RN, CCDS Admit Date: 05/29/2017 9:20:00 PM Patient Name: La Quinn Visit Number: [id number] ATTENTION: The Clinical Documentation Specialists (CDI) and [facility] Coding Staff appreciate your assistance in clarifying documentation. Please respond to the clarification below the line at the bottom and electronically sign. The CDI & [facility] Coding staff will review the response and follow-up if needed. Please note: Queries are made part of the Legal Health Record. If you have any questions, please contact the author of this message via ITS. Dr. Rachid Arnold A diagnosis of normocytic anemia lacks specificity to accurately reflect your patients severity of condition and clarification is needed. History/Risk Factors: Pt is post-op day 5 from a robotic assisted Vaginal hysterectomy Clinical indicators: 05/31 Attending Progress Note: " Anemia normocytic" Hemoglobin: 8.6/8.1/8.3/8.8 Hematocrit:27.7/25.9/26.2/28.2 Treatment: Labs AM Daily Please provide greater specificity if known. Acute blood loss anemia Acute on chronic blood loss anemia Chronic blood loss anemia Iron deficiency anemia Unable to determine Other, please specify Please continue to document in your progress notes and discharge summary in order to capture severity of illness and risk of mortality. Include clinical findings that support your diagnosis. Unable to determine MTDD
--- NOTE | 2017-06-01 17:07 | P.PN ---
Progress Note - Text Progress Note Date: 06/01/17 La is seen and evaluated again today. I have requested an infectious disease consul and she underwent a repeat computed tomography scan. Computed tomography scan shows continued fluid collection abscess versus infected hematoma within her lower pelvis there are 2 separate areas one is approximately 9 x 7 cm 4 x 3 cm there is also some ascites present. She still has large amount of fluid air levels in her colon consistent with ileus. In discussing it with infectious disease and radiology there is question as to whether not she should undergo a CT-guided drainage of this area, we will see if the change in antibiotics makes a difference or not as we have had limited success and continue to bring her white count down is 12.1 today down from 12.5 yesterday. Throughout the day she had not had any fevers and her Tmax had been 98 today however at 5:00 her temperature increased to 100.3. She is still not had any significant febrile episodes since the first night. Her pain is relatively confined to her abdomen likely secondary to the ileus as that is her main complaint. She has finally stopped having diarrhea late this morning. I did see her twice today earlier than the afternoon her bowel sounds were scant this afternoon she has much improved bowel sounds still somewhat high-pitched but definitely more present than what they were earlier. The trying continue to ambulate her and maintain nothing by mouth status until bowel sounds are improved and then try her on some scant liquids again. She and I did discuss both the possibility of doing the CT-guided drainage but ultimately if we're unable to get this improved and we are more concerned about a definitive abscess she may end up ultimately having to go back to surgery to remove the abscess. This opening will not be needed but remains an option. We did receive blood cultures from [facility] today that were positive which is different than the cultures that we been running here which have been all negative. Dr. Man the infectious disease physician is aware of the septicemia. Assessment postop hematoma versus abscess with sepsis. Continue IV antibiotics and continue very close monitoring.
--- NOTE | 2017-06-01 18:36 | PN ---
PROGRESS NOTE DATE OF SERVICE: 06/01/2017. INTERVAL HISTORY: This 46-year-old woman who was admitted with multiple medical problems, had complaints of abdominal distention and pain. Repeat CT scan was noted which showed possible pelvic abscesses and as well as ileus. Infectious Disease evaluation has been sought. The patient is on broad-spectrum IV antibiotics as mentioned earlier. The cultures are negative so far. EXAM: Alert and oriented x3. Pulse is 83, blood pressure 94/50, respiration 18, temperature 98.8, T-max 100.3, pulse ox 98% on room air. HEENT: Conjunctivae normal. NECK: No jugular venous distention. CARDIOVASCULAR: S1, S2. RESPIRATORY: Breath sounds diminished in the bases. No rhonchi, no crackles. ABDOMEN: Soft, mild diffuse distention. No guarding. No mass palpable. LEGS: No edema. NERVOUS SYSTEM: No focal deficits. LAB STUDIES: Hemoglobin is 8.8. ASSESSMENT: 1. Abdominal pain, discomfort, rule out pelvic abscess with fever. 2. Status post recent abdominal hysterectomy. 3. Increased WBC. 4. Anemia normocytic. 5. Hypothyroidism. RECOMMENDATIONS AND DISCUSSION I recommend to continue current management. Continue the broad-spectrum IV antibiotics. Otherwise, closely follow with infectious disease. Discussed with Dr. Lambert. Will evaluate CT scan report. Guarded prognosis. Further recommendations to follow. MMODL / IJN: [id number] /
[2017-06-01] MEDS: MEROPENEM 1 GM in SODIUM CHLORIDE 0.9% 100 ML IVPB SCH (20:47)
--- NOTE | 2017-06-01 23:13 | P.CONS ---
History of Present Illness - Reason for Consult Consult date: 06/01/17 - Chief Complaint Fever - History of Present Illness 46-year-old female who has a history of a hysterectomy from 05/24/2017. The procedure started as a robotic procedure was converted to a transvaginal hysterectomy. Originally the patient was doing relatively well. However then she started developing increasing amounts of abdominal pain. She also developed relatively profuse bouts of diarrhea associated with the severe lower abdominal/pelvic pain. She then developed a significant fever and presented to Hospital she was found to have evidence of the fever as well as leukocytosis. Antibiotic therapy was initiated. The patient has had some low- grade temperature continues to have leukocytosis. She is still having some abdominal discomfort. It actually worsened quite a bit this morning when she developed evidence of an ileus. With this the infectious diseases consultation was requested and the patient underwent CT scanning. Computed tomography scan does reveal evidence of abscess within the lower pelvis. Patient being treated with piperacillin tazobactam. Does relate she continues to feel poorly. Especially the onset of ileus. She's been feeling warm and febrile. She had nausea that is now improved. No hematemesis melena or hematochezia. Her profuse diarrhea has also improved. She had no melena or hematochezia Review of Systems HEENT: Mild headache but no acute visual change. Denies sinus or mouth discomforts. Denies neck stiffness or pain. Denies significant oral cavity pain. Denies difficulty on swallowing. Lungs: Denies significant shortness of breath, cough, sputum production, or hemoptysis. Cardiovascular: Denies significant shortness of breath, chest pain, chest wall pain, orthopnea, dyspnea on exertion, syncope Gastrointestinal: As per the HPI with her ileus Musculoskeletal: denies significant myalgias or arthralgias. No new joint swelling. Denies new back pain. Skin: Denies new rash or lesions. No new ulcers or wounds are related.. Neuro: Denies headache or visual change. Denies any new onset weakness or difficulty with ambulation. Denies falls or seizures. Psychiatric:Denies anxiety or depression. Endocrine: Denies significant fatigue, denies significant weight loss or weight gain. Past Medical History Past Medical History: Thyroid Disorder Additional Past Medical History / Comment(s): hx irregular periods with heavy vaginal bleeding History of Any Multi-Drug Resistant Organisms: None Reported Past Surgical History: Hysterectomy Additional Past Surgical History / Comment(s): hysterectomy on 05-24-2017 Past Anesthesia/Blood Transfusion Reactions: No Reported Reaction Additional Past Anesthesia/Blood Transfusion Reaction / Comm: pt states has never received anesthesia Past Psychological History: No Psychological Hx Reported Additional Psychological History / Comment(s): . Was in the family home with and child. Does work outside of the home. Stop smoking about a year ago. No significant alcohol use no recreational drug use. No experience. No international travel. 2 pet dogs in the home Smoking Status: Never smoker Past Alcohol Use History: None Reported Past Drug Use History: None Reported - Past Family History Mother Family Medical History: Hyperlipidemia, Hypertension Medications and Allergies Home Medications and Allergies Comment(s): Current Medications Acetaminophen (Tylenol Tab) 650 mg PO Q6HR PRN PRN Reason: Fever and/ or Mild Pain Last Admin: 05/31/17 20:56 Dose: 650 mg Heparin Sodium (Porcine) (Heparin) 5,000 unit SQ Q12HR [facility] Last Admin: 06/01/17 20:52 Dose: 5,000 unit Hydromorphone HCl (Dilaudid) 4 mg PO Q3HR PRN PRN Reason: Severe Pain Last Admin: 06/01/17 17:01 Dose: 4 mg Sodium Chloride (Saline 0.9%) 1,000 mls @ 100 mls/hr IV .Q10H [facility] Last Admin: 06/01/17 18:52 Dose: Not Given Vancomycin HCl 1,250 mg/ (Sodium Chloride) 250 mls @ 125 mls/hr IVPB DAILY [facility] Meropenem 1 gm/ Sodium (Chloride) 100 mls @ 100 mls/hr IVPB Q8H [facility] Last Admin: 06/01/17 20:47 Dose: 100 mls/hr Ibuprofen (Motrin) 600 mg PO QID PRN PRN Reason: Fever Last Admin: 06/01/17 00:10 Dose: 600 mg Iohexol (Omnipaque 350 Mg/Ml (For Oral Use)) 25 ml PO Q60M PRN PRN Reason: CT Scan Stop: 06/02/17 09:54 Last Admin: 06/01/17 11:31 Dose: 25 ml Levothyroxine Sodium (Synthroid) 137 mcg PO 0630 [facility] Last Admin: 06/01/17 06:03 Dose: 137 mcg Metoclopramide HCl (Reglan) 10 mg IVP Q6HR PRN PRN Reason: Abdominal Distention Last Admin: 05/31/17 18:32 Dose: 10 mg Miscellaneous Information (Rx Info: Iv Contrast Was Given) 1 each MISCELLANE DAILY PRN PRN Reason: Per Protocol Stop: 06/03/17 09:54 Naloxone HCl (Narcan) 0.2 mg IV Q2M PRN PRN Reason: Opioid Reversal Ondansetron HCl (Zofran) 4 mg IVP Q8HR PRN PRN Reason: Nausea And Vomiting Last Admin: 06/01/17 13:36 Dose: 4 mg Pantoprazole Sodium (Protonix) 40 mg PO AC-BRKFST [facility] Last Admin: 06/01/17 08:28 Dose: 40 mg Simethicone (Mylicon Chew) 80 mg PO QID PRN PRN Reason: Bloating Home Medications Medication Instructions Recorded Confirmed Type Cholecalciferol [Vitamin D3] 2,000 unit PO DAILY 08/11/16 05/29/17 History Acetaminophen-Codeine 300-30mg 1 tab PO Q4H PRN #30 tablet 05/25/17 05/29/17 Rx [Tylenol #3] Ibuprofen [Motrin] 600 mg PO Q6HR PRN #30 tab 05/25/17 05/29/17 Rx Levothyroxine Sodium [Synthroid] 137 mcg PO DAILY 05/29/17 05/29/17 History Polyethylene Glycol 3350 [Miralax] 17 gm PO DAILY PRN 05/29/17 05/29/17 History Allergies Allergy/AdvReac Type Severity Reaction Status Date / Time No Known Allergies Allergy Verified 05/29/17 21:30 Physical Exam Vitals: Vital Signs Temp Pulse Pulse Resp BP Pulse Ox 06/01/17 20:02 99.4 F 98 20 115/78 94 L 06/01/17 17:20 97.6 F 98 20 116/79 97 06/01/17 16:59 100.3 F H 06/01/17 12:14 98.3 F 83 18 95/64 96 06/01/17 08:33 98.1 F 88 18 126/84 98 06/01/17 00:00 98.5 F 88 18 104/64 99 Intake and Output 02/23/18 02/23/18 02/23/18 06:59 14:59 22:59 Intake Total 900 Output Total 200 501 Balance 700 -501 Intake: Oral 900 Output: Urine 200 501 Other: Voiding Method Toilet Toilet # Voids 3 2 1 # Bowel Movements 2 46-year-old female who is somewhat uncomfortable because of her distended abdomen HEENT: Anicteric conjunctiva are pink and moist nasal mucosa grossly intact without significant lesions, there is no thrush. Neck: The neck is supple without significant lymphadenopathy or thyromegaly. Lungs: Good bilateral air entry without significant crackles or wheezing. There is no significant bronchial sounds. There is no egophony or dullness. Heart: Regular rate and rhythm with an audible S1-S2, no S3 no S4. There is no significant murmur click or rub, PMI was nondisplaced. Abdomen: Distended, some generalized tenderness especially deep low abdominal wall without guarding or rebound Extremities: The upper extremities have excellent pulses they are symmetric, no significant petechiae or telangiectasia. No splinter hemorrhages were noted. The lower extremities are free from significant edema. The peripheral pulses were 2+ and symmetric. Neuro: Awake alert oriented to person place and time. There are no acute new gross focal sensory motor deficits. Results CBC & Chem 7: 06/01/17 06:54 06/01/17 06:54 Labs: Abnormal Lab Results - Last 24 Hours (Table) 06/01/17 06/01/17 Range/Units 06:54 06:54 WBC 12.1 H (3.8-10.6) k/uL RBC 3.01 L (3.80-5.40) m/uL Hgb 8.8 L (11.4-16.0) gm/dL Hct 28.2 L (34.0-46.0) % Neutrophils # 9.9 H (1.3-7.7) k/uL Lymphocytes # 0.9 L (1.0-4.8) k/uL Chloride 109 H (98-107) mmol/L Glucose 100 H (74-99) mg/dL Calcium 8.2 L (8.4-10.2) mg/dL Microbiology - Last 24 Hours (Table) 05/30/17 16:50 Blood Culture - Preliminary Blood No Growth after 48 hours 05/30/17 22:00 Blood Culture - Preliminary Blood No Growth after 24 hours Laboratory Results WBC 12.1 k/uL (3.8-10.6) H 06/01/17 06:54 RBC 3.01 m/uL (3.80-5.40) L 06/01/17 06:54 Hgb 8.8 gm/dL (11.4-16.0) L 06/01/17 06:54 Hct 28.2 % (34.0-46.0) L 06/01/17 06:54 MCV 93.6 fL (80.0-100.0) 06/01/17 06:54 MCH 29.2 pg (25.0-35.0) 06/01/17 06:54 MCHC 31.2 g/dL (31.0-37.0) 06/01/17 06:54 RDW 15.2 % (11.5-15.5) 06/01/17 06:54 Plt Count 420 k/uL (150-450) 06/01/17 06:54 Neutrophils % 81 % 06/01/17 06:54 Lymphocytes % 7 % 06/01/17 06:54 Monocytes % 7 % 06/01/17 06:54 Eosinophils % 2 % 06/01/17 06:54 Basophils % 0 % 06/01/17 06:54 Neutrophils # 9.9 k/uL (1.3-7.7) H 06/01/17 06:54 Lymphocytes # 0.9 k/uL (1.0-4.8) L 06/01/17 06:54 Monocytes # 0.8 k/uL (0-1.0) 06/01/17 06:54 Eosinophils # 0.3 k/uL (0-0.7) 06/01/17 06:54 Basophils # 0.0 k/uL (0-0.2) 06/01/17 06:54 PT 10.1 sec (9.0-12.0) 05/31/17 07:07 INR 1.0 (<1.2) 05/31/17 07:07 Sodium 139 mmol/L (137-145) 06/01/17 06:54 Potassium 3.6 mmol/L (3.5-5.1) 06/01/17 06:54 Chloride 109 mmol/L (98-107) H 06/01/17 06:54 Carbon Dioxide 22 mmol/L (22-30) 06/01/17 06:54 Anion Gap 8 mmol/L 06/01/17 06:54 BUN 9 mg/dL (7-17) 06/01/17 06:54 Creatinine 0.99 mg/dL (0.52-1.04) 06/01/17 06:54 Est GFR (MDRD) Af Amer >60 (>60 ml/min/1.73 sqM) 06/01/17 06:54 Est GFR (MDRD) Non-Af >60 (>60 ml/min/1.73 sqM) 06/01/17 06:54 Glucose 100 mg/dL (74-99) H 06/01/17 06:54 Plasma Lactic Acid Dany 0.7 mmol/L (0.7-2.0) 05/30/17 08:58 Calcium 8.2 mg/dL (8.4-10.2) L 06/01/17 06:54 Total Bilirubin 1.2 mg/dL (0.2-1.3) 05/31/17 07:07 AST 28 U/L (14-36) 05/31/17 07:07 ALT 27 U/L (9-52) 05/31/17 07:07 Alkaline Phosphatase 80 U/L (38-126) 05/31/17 07:07 Total Protein 6.2 g/dL (6.3-8.2) L 05/31/17 07:07 Albumin 3.2 g/dL (3.5-5.0) L 05/31/17 07:07 Urine Color Yellow 05/30/17 00:07 Urine Appearance Clear (Clear) 05/30/17 00:07 Urine pH 7.0 (5.0-8.0) 05/30/17 00:07 Ur Specific Desdemona 1.044 (1.001-1.035) H 05/30/17 00:07 Urine Protein Trace (Negative) H 05/30/17 00:07 Urine Glucose (UA) Negative (Negative) 05/30/17 00:07 Urine Ketones Negative (Negative) 05/30/17 00:07 Urine Blood Large (Negative) H 05/30/17 00:07 Urine Nitrite Negative (Negative) 05/30/17 00:07 Urine Bilirubin Negative (Negative) 05/30/17 00:07 Urine Urobilinogen <2.0 mg/dL (<2.0) 05/30/17 00:07 Ur Leukocyte Esterase Small (Negative) H 05/30/17 00:07 Urine RBC >182 /hpf (0-5) H 05/30/17 00:07 Urine WBC 17 /hpf (0-5) H 05/30/17 00:07 Ur Squamous Epith Cells 3 /hpf (0-4) 05/30/17 00:07 Vancomycin Trough 27.7 ug/mL 06/01/17 13:03 C. difficile (EIA) Intrp Negative (Negative) 05/30/17 18:28 Microbiology 05/30/17 16:50 Blood Blood Culture - Preliminary No Growth after 48 hours 05/30/17 22:00 Blood Blood Culture - Preliminary No Growth after 24 hours 05/30/17 00:07 Urine,Voided Urine Culture - Final Assessment and Plan (1) Status post vaginal hysterectomy Current Visit: Yes Status: Acute Code(s): Z90.710 - ACQUIRED ABSENCE OF BOTH CERVIX AND UTERUS SNOMED Code(s): 130817924 (2) Pelvic abscess Narrative/Plan: 46-year-old female who is status post robotic-assisted hysterectomy that was converted to a transvaginal hysterectomy who is developed fever and now an ileus. Computed tomography scan reveals evidence of fluid collections consistent with abscess within the pelvis. Antimicrobial therapy will be altered from Zosyn to meropenem which may be better tolerated especially given her significantly and diarrhea before she is showing some improvement at this time. If she does not have rapid improvement would ask interventional radiology if percutaneous drainage is possible. Cultures are in progress. She does have a leukocytosis that is somewhat persistent. She developed a significant ileus has occurred directly after having multiple loose stools. Her bowel function is being monitored the profuse diarrhea has improved this evening however is now nothing by mouth because of the ileus. Current Visit: Yes Status: Acute Code(s): OAX1178 - SNOMED Code(s): 102260922 (3) Leukocytosis Current Visit: Yes Status: Acute Code(s): D72.829 - ELEVATED WHITE BLOOD CELL COUNT, UNSPECIFIED SNOMED Code(s): 774632389
[2017-06-02] MEDS: HYDROmorphone 4 MG TABLET PO PRN ×3 (00:25→21:04)
[2017-06-02] MEDS: SODIUM CHLORIDE 0.9% 1,000 ML IV SCH ×3 (00:26→16:12)
[2017-06-02] MEDS: MEROPENEM 1 GM in SODIUM CHLORIDE 0.9% 100 ML IVPB SCH ×2 (04:43→12:56)
[2017-06-02 06:59] LABS: Calcium 8.3 mg/dL (8.4-10.2); Potassium 3.6 mmol/L (3.5-5.1)
[2017-06-02] MEDS: PANTOPRAZOLE 40 MG TABLET PO SCH (07:32)
[2017-06-02] MEDS: LEVOTHYROXINE 137 MCG TAB PO SCH (07:32)
[2017-06-02] MEDS ORDERED: VANCOMYCIN 1,250 MG in SODIUM CHLORIDE 0.9% 250 ML IVPB SCH (09:00)
[2017-06-02] MEDS: HEPARIN SODIUM,PORCINE 5,000 UNIT/ML 1 ML VIAL SQ SCH ×2 (09:21→21:01)
--- NOTE | 2017-06-02 09:42 | P.PN ---
Subjective Progress Note Date: 06/02/17 Principal diagnosis: Postop day 9 with sepsis and ileus and likely abscess of her pelvis La is seen and evaluated this morning. Her bowel sounds are improved over yesterday and it does grossly appear that her abdomen is not as distended. She says that she is now passing some flatus. Will attempt very judicious ice chips and maybe some sips of water and see how she does. There is nominal change from my standpoint antibiotic change is complete but at this point uncertain how well she will respond as it was only started last night. Will continue care as we are doing at this time with new antibody change and if her symptomatology is not dramatically improved over the next 24 hours likely have radiology placed percutaneous drain to remove the abscess. Will await medicine and infectious disease for further recommendations with her care. I discussed care land with the nurse very specifically and will plan to only let her try few ice chips and a few sips for now and overall continued to not have her take anything by mouth until she is passing gas better. She is however again having bowel movements they are beginning to be a little bit more formed than they were she is less uncomfortable and her pain seems to be improved. On physical exam vital signs are currently stable with a T-max today of 99. Heart is otherwise regular and lungs sound generally clear. Abdomen is soft with mild distention. There are bowel sounds noted today they do sound more active than last night when I saw her. Objective - Vital Signs Vital signs: Vital Signs Temp 99.4 F 06/01/17 20:02 Pulse 98 06/01/17 20:02 Resp 20 06/02/17 00:00 BP 115/78 06/01/17 20:02 Pulse Ox 94 L 06/01/17 20:02 Intake & Output 06/01/17 06/02/17 06/02/17 18:59 06:59 18:59 Intake Total 900 Output Total 700 1 Balance 200 -1 Intake: Oral 900 Output: Urine 700 1 Other: Voiding Method Toilet # Voids 2 2 # Bowel Movements 2 - Constitutional General appearance: Present: average body habitus, cooperative, mild distress - Respiratory Respiratory: bilateral: CTA - Cardiovascular Rhythm: regular - Gastrointestinal General gastrointestinal: Present: decreased bowel sounds (Decreased but improving), distended, soft, tenderness - Labs CBC & Chem 7: 06/01/17 06:54 06/02/17 06:16 Labs: Abnormal Lab Results - Last 24 Hours (Table) 06/02/17 Range/Units 06:16 Chloride 112 H (98-107) mmol/L Carbon Dioxide 20 L (22-30) mmol/L Creatinine 1.80 H (0.52-1.04) mg/dL Calcium 8.3 L (8.4-10.2) mg/dL Microbiology - Last 24 Hours (Table) 05/30/17 22:00 Blood Culture - Preliminary Blood No Growth after 48 hours 05/30/17 16:50 Blood Culture - Preliminary Blood No Growth after 48 hours
[2017-06-02] MEDS ORDERED: VANCOMYCIN IV PER PHARMACY 1 EACH MISC MISCELLANE PRN (11:08)
[2017-06-02] MEDS ORDERED: VANCOMYCIN 1,250 MG in SODIUM CHLORIDE 0.9% 250 ML IVPB ONE (12:00)
[2017-06-02 15:44] LABS: Basophils % (A) 0 %; Eosinophils # (A) 0.1 k/uL (0-0.7); Eosinophils % (A) 1 %; HGB 8.3 gm/dL (11.4-16.0); Hypochromasia Slight; Lymphocytes # (A) 1.1 k/uL (1.0-4.8); Lymphocytes % (A) 8 %; MCH 29.1 pg (25.0-35.0); MCHC 30.7 g/dL (31.0-37.0); MCV 94.8 fL (80.0-100.0); Mean Platelet Volume 8.2; Monocytes # (A) 0.7 k/uL (0-1.0); Monocytes % (A) 5 %; Neutrophils # (A) 10.8 k/uL (1.3-7.7); Neutrophils % (A) 82 %; Platelet Count 426 k/uL (150-450); RBC 2.84 m/uL (3.80-5.40); RDW 15.3 % (11.5-15.5); WBC 13.2 k/uL (3.8-10.6)
[2017-06-02] MEDS: IBUPROFEN 600 MG TAB PO PRN (17:53)
--- NOTE | 2017-06-02 21:31 | PN ---
PROGRESS NOTE DATE OF SERVICE: 06/02/2016 This 46-year-old woman admitted with abdominal discomfort and other issues, had abnormal CT scan. The patient had recent total abdominal hysterectomy. White count is elevated. Patient admitted with empiric antibiotics. Possibility of pelvic abscess a concern. No chest pain. No palpitations. No fever. EXAM: Alert and oriented times three. Pulse is 96, blood pressure 121/82, respiration 20, temperature 99.1, pulse ox 97% on room air. HEENT: Conjunctivae normal. Neck: No jugular venous distention. CARDIOVASCULAR: S1, S2. RESPIRATORY: Breath sounds diminished in the bases. No rhonchi and no crackles. Abdomen is soft. Mild diffuse discomfort. No guarding. No rigidity. No mass palpable. Legs no edema. No swelling. LABS: WBC 13.2, hemoglobin is 8.3. ASSESSMENT: 1. Abdominal pain, discomfort, rule out pelvic abscess with fever. 2. Increased WBC. 3. History of recent abdominal hysterectomy. 4. Anemia normocytic. 5. Hypothyroidism. RECOMMENDATIONS AND DISCUSSION: Continue current medications. Continue symptomatic treatment. Continue with broad spectrum IV antibiotics. The patient is on meropenem. C diff is negative. Diarrhea is better. Guarded prognosis. Further recommendations to follow. MMODL / IJN: [id number] /
--- NOTE | 2017-06-02 22:51 | P.PN ---
Subjective Progress Note Date: 06/02/17 46-year-old female who has a history of a hysterectomy from 05/24/2017. The procedure started as a robotic procedure was converted to a transvaginal hysterectomy. Originally the patient was doing relatively well. However then she started developing increasing amounts of abdominal pain. She also developed relatively profuse bouts of diarrhea associated with the severe lower abdominal/pelvic pain. She then developed a significant fever and presented to Hospital she was found to have evidence of the fever as well as leukocytosis. Antibiotic therapy was initiated. The patient has had some low- grade temperature continues to have leukocytosis. She is still having some abdominal discomfort. It actually worsened quite a bit this morning when she developed evidence of an ileus. With this the infectious diseases consultation was requested and the patient underwent CT scanning. Computed tomography scan does reveal evidence of abscess within the lower pelvis. Patient being treated with piperacillin tazobactam. Does relate she continues to feel poorly. Especially the onset of ileus. She's been feeling warm and febrile. She had nausea that is now improved. No hematemesis melena or hematochezia. Her profuse diarrhea has also improved. She had no melena or hematochezia June 02 2017 patient is feeling better today. Doing well with current antibiotic therapy. She relates that since changing to Merrem she had a sudden improvement of her status. Her pain improved. Her diarrhea improved. Objective - Vital Signs Vital signs: Vital Signs Temp 98.9 F 06/02/17 20:15 Pulse 93 06/02/17 20:15 Resp 20 06/02/17 20:15 BP 133/76 06/02/17 20:15 Pulse Ox 98 06/02/17 20:15 Intake & Output 06/02/17 06/02/17 06/03/17 06:59 18:59 06:59 Output Total 1 Balance -1 Output: Urine 1 Other: # Voids 2 1 # Bowel Movements 1 - Exam 46-year-old female who is somewhat uncomfortable because of her distended abdomen HEENT: Anicteric conjunctiva are pink and moist nasal mucosa grossly intact without significant lesions, there is no thrush. Neck: The neck is supple without significant lymphadenopathy or thyromegaly. Lungs: Good bilateral air entry without significant crackles or wheezing. There is no significant bronchial sounds. There is no egophony or dullness. Heart: Regular rate and rhythm with an audible S1-S2, no S3 no S4. There is no significant murmur click or rub, PMI was nondisplaced. Abdomen: Distended, some generalized tenderness especially deep low abdominal wall without guarding or rebound Extremities: The upper extremities have excellent pulses they are symmetric, no significant petechiae or telangiectasia. No splinter hemorrhages were noted. The lower extremities are free from significant edema. The peripheral pulses were 2+ and symmetric. Neuro: Awake alert oriented to person place and time. There are no acute new gross focal sensory motor deficits. - Labs CBC & Chem 7: 06/02/17 15:37 06/02/17 06:16 Labs: Abnormal Lab Results - Last 24 Hours (Table) 06/02/17 06/02/17 Range/Units 06:16 15:37 WBC 13.2 H (3.8-10.6) k/uL RBC 2.84 L (3.80-5.40) m/uL Hgb 8.3 L (11.4-16.0) gm/dL Hct 27.0 L (34.0-46.0) % MCHC 30.7 L (31.0-37.0) g/dL Neutrophils # 10.8 H (1.3-7.7) k/uL Chloride 112 H (98-107) mmol/L Carbon Dioxide 20 L (22-30) mmol/L Creatinine 1.80 H (0.52-1.04) mg/dL Calcium 8.3 L (8.4-10.2) mg/dL Microbiology - Last 24 Hours (Table) 05/30/17 16:50 Blood Culture - Preliminary Blood No Growth after 72 hours 05/30/17 22:00 Blood Culture - Preliminary Blood No Growth after 48 hours Laboratory Results WBC 13.2 k/uL (3.8-10.6) H 06/02/17 15:37 RBC 2.84 m/uL (3.80-5.40) L 06/02/17 15:37 Hgb 8.3 gm/dL (11.4-16.0) L 06/02/17 15:37 Hct 27.0 % (34.0-46.0) L 06/02/17 15:37 MCV 94.8 fL (80.0-100.0) 06/02/17 15:37 MCH 29.1 pg (25.0-35.0) 06/02/17 15:37 MCHC 30.7 g/dL (31.0-37.0) L 06/02/17 15:37 RDW 15.3 % (11.5-15.5) 06/02/17 15:37 Plt Count 426 k/uL (150-450) 06/02/17 15:37 Neutrophils % 82 % 06/02/17 15:37 Lymphocytes % 8 % 06/02/17 15:37 Monocytes % 5 % 06/02/17 15:37 Eosinophils % 1 % 06/02/17 15:37 Basophils % 0 % 06/02/17 15:37 Neutrophils # 10.8 k/uL (1.3-7.7) H 06/02/17 15:37 Lymphocytes # 1.1 k/uL (1.0-4.8) 06/02/17 15:37 Monocytes # 0.7 k/uL (0-1.0) 06/02/17 15:37 Eosinophils # 0.1 k/uL (0-0.7) 06/02/17 15:37 Basophils # 0.0 k/uL (0-0.2) 06/02/17 15:37 Hypochromasia Slight 06/02/17 15:37 PT 10.1 sec (9.0-12.0) 05/31/17 07:07 INR 1.0 (<1.2) 05/31/17 07:07 Sodium 141 mmol/L (137-145) 06/02/17 06:16 Potassium 3.6 mmol/L (3.5-5.1) 06/02/17 06:16 Chloride 112 mmol/L (98-107) H 06/02/17 06:16 Carbon Dioxide 20 mmol/L (22-30) L 06/02/17 06:16 Anion Gap 9 mmol/L 06/02/17 06:16 BUN 11 mg/dL (7-17) 06/02/17 06:16 Creatinine 1.80 mg/dL (0.52-1.04) H 06/02/17 06:16 Est GFR (MDRD) Af Amer 37 (>60 ml/min/1.73 sqM) 06/02/17 06:16 Est GFR (MDRD) Non-Af 30 (>60 ml/min/1.73 sqM) 06/02/17 06:16 Glucose 90 mg/dL (74-99) 06/02/17 06:16 Plasma Lactic Acid Dany 0.9 mmol/L (0.7-2.0) 06/02/17 17:45 Calcium 8.3 mg/dL (8.4-10.2) L 06/02/17 06:16 Total Bilirubin 1.2 mg/dL (0.2-1.3) 05/31/17 07:07 AST 28 U/L (14-36) 05/31/17 07:07 ALT 27 U/L (9-52) 05/31/17 07:07 Alkaline Phosphatase 80 U/L (38-126) 05/31/17 07:07 Total Protein 6.2 g/dL (6.3-8.2) L 05/31/17 07:07 Albumin 3.2 g/dL (3.5-5.0) L 05/31/17 07:07 Urine Color Yellow 05/30/17 00:07 Urine Appearance Clear (Clear) 05/30/17 00:07 Urine pH 7.0 (5.0-8.0) 05/30/17 00:07 Ur Specific [place] 1.044 (1.001-1.035) H 05/30/17 00:07 Urine Protein Trace (Negative) H 05/30/17 00:07 Urine Glucose (UA) Negative (Negative) 05/30/17 00:07 Urine Ketones Negative (Negative) 05/30/17 00:07 Urine Blood Large (Negative) H 05/30/17 00:07 Urine Nitrite Negative (Negative) 05/30/17 00:07 Urine Bilirubin Negative (Negative) 05/30/17 00:07 Urine Urobilinogen <2.0 mg/dL (<2.0) 05/30/17 00:07 Ur Leukocyte Esterase Small (Negative) H 05/30/17 00:07 Urine RBC >182 /hpf (0-5) H 05/30/17 00:07 Urine WBC 17 /hpf (0-5) H 05/30/17 00:07 Ur Squamous Epith Cells 3 /hpf (0-4) 05/30/17 00:07 Vancomycin Trough 27.7 ug/mL 06/01/17 13:03 Random Vancomycin 15.0 ug/mL 06/02/17 06:15 C. difficile (EIA) Intrp Negative (Negative) 05/30/17 18:28 Assessment and Plan (1) Status post vaginal hysterectomy Current Visit: Yes Status: Acute Code(s): Z90.710 - ACQUIRED ABSENCE OF BOTH CERVIX AND UTERUS SNOMED Code(s): 709498139 (2) Pelvic abscess Narrative/Plan: 46-year-old female who is status post robotic-assisted hysterectomy that was converted to a transvaginal hysterectomy who is developed fever and now an ileus. Computed tomography scan reveals evidence of fluid collections consistent with abscess within the pelvis. Antimicrobial therapy will be altered from Zosyn to meropenem which may be better tolerated especially given her significantly and diarrhea before she is showing some improvement at this time. If she does not have rapid improvement would ask interventional radiology if percutaneous drainage is possible. Cultures are in progress. She does have a leukocytosis that is somewhat persistent. She developed a significant ileus has occurred directly after having multiple loose stools. Her bowel function is being monitored the profuse diarrhea has improved this evening however is now nothing by mouth because of the ileus. 06/02/2017 patient to consult better. Is having some ice chips without any further worsening abdominal pain. Check she feels considerably better today. Is up and moving about. Is passing flatus as having some stool but it is improved from yesterday. She is impressed with the rapid improvement since the antibiotic change. If hours she has any further difficulties percutaneous drainage will be arranged. Current Visit: Yes Status: Acute Code(s): ANH4229 - SNOMED Code(s): 704694083 (3) Leukocytosis Current Visit: Yes Status: Acute Code(s): D72.829 - ELEVATED WHITE BLOOD CELL COUNT, UNSPECIFIED SNOMED Code(s): 791501114
[2017-06-03] MEDS: HYDROmorphone 4 MG TABLET PO PRN ×3 (01:00→19:36)
[2017-06-03] MEDS: MEROPENEM 1 GM in SODIUM CHLORIDE 0.9% 100 ML IVPB SCH ×2 (01:06→11:56)
[2017-06-03] MEDS: SODIUM CHLORIDE 0.9% 1,000 ML IV SCH ×3 (01:19→11:55)
[2017-06-03] MEDS: LEVOTHYROXINE 137 MCG TAB PO SCH (06:24)
[2017-06-03 07:10] LABS: Albumin 2.6 g/dL (3.5-5.0); Calcium 7.7 mg/dL (8.4-10.2); Potassium 3.3 mmol/L (3.5-5.1); Total Bilirubin 0.5 mg/dL (0.2-1.3); Total Protein 5.3 g/dL (6.3-8.2)
[2017-06-03 07:17] LABS: Basophils % (A) 0 %; Eosinophils # (A) 0.1 k/uL (0-0.7); Eosinophils % (A) 1 %; HCT 21.8 % (34.0-46.0); Hypochromasia Slight; Lymphocytes # (A) 0.8 k/uL (1.0-4.8); Lymphocytes % (A) 8 %; MCH 28.6 pg (25.0-35.0); MCV 95.4 fL (80.0-100.0); Mean Platelet Volume 6.9; Monocytes # (A) 0.6 k/uL (0-1.0); Monocytes % (A) 6 %; Neutrophils % (A) 81 %; Platelet Count 328 k/uL (150-450); RBC 2.29 m/uL (3.80-5.40); RDW 15.2 % (11.5-15.5); WBC 9.8 k/uL (3.8-10.6)
[2017-06-03 07:25] LABS: HGB 6.5 gm/dL (11.4-16.0)
[2017-06-03] MEDS: HEPARIN SODIUM,PORCINE 5,000 UNIT/ML 1 ML VIAL SQ SCH (08:00)
[2017-06-03 08:17] LABS: Vancomycin,Random 13.9 ug/mL
[2017-06-03] MEDS: PANTOPRAZOLE 40 MG TABLET PO SCH (08:34)
--- NOTE | 2017-06-03 08:43 | P.PN ---
Progress Note - Text Progress Note Date: 06/03/17 I was called by the nurse for critical hemoglobin level. Patient's CBC today shows her white count was normal however her hemoglobin has dropped to 6.5 it was 8.3 yesterday. Patient's vital signs are stable and she is currently afebrile. She is not tachycardic or hypotensive. I did come see La in examination of her abdomen shows it to be soft and diffusely tender to deep palpation but less distended than when I had seen her previously. She indicates that she is passing mostly flatus but no formed bowel movements. She is only taking some ice chips because she states when she eats she becomes more uncomfortable. Her creatinine did appear to increase significantly yesterday but apparently her medical physicians are aware of this and thought to be medication related. She continues to have good urine output. At this point, I' m uncertain as to the reason for the significant drop in her hemoglobin. However plan at this time is to repeat it in 2 hours and discontinue her anticoagulant prophylaxis at this time. Dr. Lambert will be in to see her this morning and pending this hemoglobin decided whether not a blood transfusion is indicated or other intervention. Patient appears stable at this time.
--- NOTE | 2017-06-03 10:27 | P.PN ---
Progress Note - Text Progress Note Date: 06/03/17 La seen and evaluated again today. Realistically she looks much improved her abdominal distention is basically gone she has excellent bowel sounds she is passing large quantities of flatus although she has not had another bowel movement. She however, is also not had any diet the last 2 days. Her vital signs are again stable at this time and her fever has abated now for almost 24 hours. She does have one curiosity in that her hemoglobin this morning was 6.5 from 8.3 yesterday. I have no source for this change is unclear if she could potentially have some type of GI issue or if there could be other bleeding her abdomen although that seems less likely. A repeat CBC is pending at this time but may offer better perspective of what is going on. In speaking with her she is becoming more and more frustrated and has become teary since she is only marginally improved over the last 2 days. She was expecting that she might be home by this point as I was, but as I explained to her the need to make sure that she is fully better so that we don't end up having her go home and come back in worse shape. She seems to understand this and we will await the findings of the repeat CBC as well as since she is passing flatus and had tolerated a ship yesterday advancing her to judicious fluids today. Assessment postop day 10. Plan continue care for now.
[2017-06-03 10:47] LABS: Basophils % (A) 0 %; Eosinophils # (A) 0.1 k/uL (0-0.7); Eosinophils % (A) 1 %; HCT 22.8 % (34.0-46.0); Hypochromasia Marked; Lymphocytes # (A) 0.9 k/uL (1.0-4.8); Lymphocytes % (A) 8 %; MCH 30.3 pg (25.0-35.0); MCHC 30.7 g/dL (31.0-37.0); MCV 98.6 fL (80.0-100.0); Macrocytosis Slight; Mean Platelet Volume 7.2; Monocytes # (A) 0.6 k/uL (0-1.0); Monocytes % (A) 6 %; Neutrophils # (A) 8.7 k/uL (1.3-7.7); Neutrophils % (A) 83 %; Platelet Count 321 k/uL (150-450); RBC 2.31 m/uL (3.80-5.40); RDW 15.2 % (11.5-15.5); WBC 10.6 k/uL (3.8-10.6)
[2017-06-03] MEDS: VANCOMYCIN 1,250 MG in SODIUM CHLORIDE 0.9% 250 ML IVPB SCH (13:03)
[2017-06-03 16:40] LABS: Iron Saturation 9.32 (12.00-45.00)
--- NOTE | 2017-06-03 16:59 | P.PN ---
Subjective Progress Note Date: 06/03/17 Principal diagnosis: Pelvic abscess 46-year-old female who has a history of a hysterectomy from 05/24/2017. The procedure started as a robotic procedure was converted to a transvaginal hysterectomy. Originally the patient was doing relatively well. However then she started developing increasing amounts of abdominal pain. She also developed relatively profuse bouts of diarrhea associated with the severe lower abdominal/pelvic pain. She then developed a significant fever and presented to Hospital she was found to have evidence of the fever as well as leukocytosis. Antibiotic therapy was initiated. The patient has had some low- grade temperature continues to have leukocytosis. She is still having some abdominal discomfort. It actually worsened quite a bit this morning when she developed evidence of an ileus. With this the infectious diseases consultation was requested and the patient underwent CT scanning. Computed tomography scan does reveal evidence of abscess within the lower pelvis. Patient being treated with piperacillin tazobactam. Does relate she continues to feel poorly. Especially the onset of ileus. She's been feeling warm and febrile. She had nausea that is now improved. No hematemesis melena or hematochezia. Her profuse diarrhea has also improved. She had no melena or hematochezia June 02 2017 patient is feeling better today. Doing well with current antibiotic therapy. She relates that since changing to Merrem she had a sudden improvement of her status. Her pain improved. Her diarrhea improved. \June 03, 2017 patient feeling more tired today. It is noted that her hemoglobin has dropped and is being monitored closely for any further decline. Her abdominal pain is improved. Continues to feel better as far as fever and chill after meropenem was started. Case is discussed with the transmission builder stool for occult blood is being obtained. Objective - Vital Signs Vital signs: Vital Signs Temp 98.3 F 06/03/17 16:03 Pulse 80 06/03/17 16:03 Resp 16 06/03/17 16:03 BP 130/84 06/03/17 16:03 Pulse Ox 100 06/03/17 16:03 Intake & Output 06/02/17 06/03/17 06/03/17 18:59 06:59 18:59 Intake Total 120 Balance 120 Intake: Oral 120 Other: # Voids 1 1 1 # Bowel Movements 1 1 - Exam 46-year-old female who is somewhat uncomfortable because of her distended abdomen HEENT: Anicteric conjunctiva are pink and moist nasal mucosa grossly intact without significant lesions, there is no thrush. Neck: The neck is supple without significant lymphadenopathy or thyromegaly. Lungs: Good bilateral air entry without significant crackles or wheezing. There is no significant bronchial sounds. There is no egophony or dullness. Heart: Regular rate and rhythm with an audible S1-S2, no S3 no S4. There is no significant murmur click or rub, PMI was nondisplaced. Abdomen: Distended, some generalized tenderness especially deep low abdominal wall without guarding or rebound Extremities: The upper extremities have excellent pulses they are symmetric, no significant petechiae or telangiectasia. No splinter hemorrhages were noted. The lower extremities are free from significant edema. The peripheral pulses were 2+ and symmetric. Neuro: Awake alert oriented to person place and time. There are no acute new gross focal sensory motor deficits. - Labs CBC & Chem 7: 06/03/17 10:02 06/03/17 06:26 Labs: Abnormal Lab Results - Last 24 Hours (Table) 06/03/17 06/03/17 06/03/17 Range/Units 06:26 06:26 10:02 RBC 2.29 L 2.31 L (3.80-5.40) m/uL Hgb 6.5 L* D 7.0 L* (11.4-16.0) gm/dL Hct 21.8 L 22.8 L (34.0-46.0) % MCHC 30.0 L 30.7 L (31.0-37.0) g/dL Neutrophils # 8.0 H 8.7 H (1.3-7.7) k/uL Lymphocytes # 0.8 L 0.9 L (1.0-4.8) k/uL Sodium 146 H (137-145) mmol/L Potassium 3.3 L (3.5-5.1) mmol/L Chloride 116 H (98-107) mmol/L Carbon Dioxide 18 L (22-30) mmol/L Creatinine 1.63 H (0.52-1.04) mg/dL Calcium 7.7 L (8.4-10.2) mg/dL Total Protein 5.3 L (6.3-8.2) g/dL Albumin 2.6 L (3.5-5.0) g/dL Microbiology - Last 24 Hours (Table) 06/02/17 06:16 Blood Culture - Preliminary Blood No Growth after 24 hours 05/30/17 22:00 Blood Culture - Preliminary Blood No Growth after 72 hours 05/30/17 16:50 Blood Culture - Preliminary Blood No Growth after 72 hours Laboratory Results WBC 10.6 k/uL (3.8-10.6) 06/03/17 10:02 RBC 2.31 m/uL (3.80-5.40) L 06/03/17 10:02 Hgb 7.0 gm/dL (11.4-16.0) L* 06/03/17 10:02 Hct 22.8 % (34.0-46.0) L 06/03/17 10:02 MCV 98.6 fL (80.0-100.0) 06/03/17 10:02 MCH 30.3 pg (25.0-35.0) 06/03/17 10:02 MCHC 30.7 g/dL (31.0-37.0) L 06/03/17 10:02 RDW 15.2 % (11.5-15.5) 06/03/17 10:02 Plt Count 321 k/uL (150-450) 06/03/17 10:02 Neutrophils % 83 % 06/03/17 10:02 Lymphocytes % 8 % 06/03/17 10:02 Monocytes % 6 % 06/03/17 10:02 Eosinophils % 1 % 06/03/17 10:02 Basophils % 0 % 06/03/17 10:02 Neutrophils # 8.7 k/uL (1.3-7.7) H 06/03/17 10:02 Lymphocytes # 0.9 k/uL (1.0-4.8) L 06/03/17 10:02 Monocytes # 0.6 k/uL (0-1.0) 06/03/17 10:02 Eosinophils # 0.1 k/uL (0-0.7) 06/03/17 10:02 Basophils # 0.0 k/uL (0-0.2) 06/03/17 10:02 Hypochromasia Marked 06/03/17 10:02 Macrocytosis Slight 06/03/17 10:02 PT 10.1 sec (9.0-12.0) 05/31/17 07:07 INR 1.0 (<1.2) 05/31/17 07:07 Sodium 146 mmol/L (137-145) H 06/03/17 06:26 Potassium 3.3 mmol/L (3.5-5.1) L 06/03/17 06:26 Chloride 116 mmol/L (98-107) H 06/03/17 06:26 Carbon Dioxide 18 mmol/L (22-30) L 06/03/17 06:26 Anion Gap 12 mmol/L 06/03/17 06:26 BUN 13 mg/dL (7-17) 06/03/17 06:26 Creatinine 1.63 mg/dL (0.52-1.04) H 06/03/17 06:26 Est GFR (MDRD) Af Amer 41 (>60 ml/min/1.73 sqM) 06/03/17 06:26 Est GFR (MDRD) Non-Af 34 (>60 ml/min/1.73 sqM) 06/03/17 06:26 Glucose 82 mg/dL (74-99) 06/03/17 06:26 Plasma Lactic Acid Dany 0.9 mmol/L (0.7-2.0) 06/02/17 17:45 Calcium 7.7 mg/dL (8.4-10.2) L 06/03/17 06:26 Total Bilirubin 0.5 mg/dL (0.2-1.3) 06/03/17 06:26 AST 18 U/L (14-36) 06/03/17 06:26 ALT 26 U/L (9-52) 06/03/17 06:26 Alkaline Phosphatase 86 U/L (38-126) 06/03/17 06:26 Total Protein 5.3 g/dL (6.3-8.2) L 06/03/17 06:26 Albumin 2.6 g/dL (3.5-5.0) L 06/03/17 06:26 Urine Color Yellow 05/30/17 00:07 Urine Appearance Clear (Clear) 05/30/17 00:07 Urine pH 7.0 (5.0-8.0) 05/30/17 00:07 Ur Specific [place] 1.044 (1.001-1.035) H 05/30/17 00:07 Urine Protein Trace (Negative) H 05/30/17 00:07 Urine Glucose (UA) Negative (Negative) 05/30/17 00:07 Urine Ketones Negative (Negative) 05/30/17 00:07 Urine Blood Large (Negative) H 05/30/17 00:07 Urine Nitrite Negative (Negative) 05/30/17 00:07 Urine Bilirubin Negative (Negative) 05/30/17 00:07 Urine Urobilinogen <2.0 mg/dL (<2.0) 05/30/17 00:07 Ur Leukocyte Esterase Small (Negative) H 05/30/17 00:07 Urine RBC >182 /hpf (0-5) H 05/30/17 00:07 Urine WBC 17 /hpf (0-5) H 05/30/17 00:07 Ur Squamous Epith Cells 3 /hpf (0-4) 05/30/17 00:07 Vancomycin Trough 27.7 ug/mL 06/01/17 13:03 Random Vancomycin 13.9 ug/mL 06/03/17 06:26 C. difficile (EIA) Intrp Negative (Negative) 05/30/17 18:28 Microbiology 06/02/17 06:16 Blood Blood Culture - Preliminary No Growth after 24 hours 05/30/17 22:00 Blood Blood Culture - Preliminary No Growth after 72 hours 05/30/17 16:50 Blood Blood Culture - Preliminary No Growth after 72 hours 05/30/17 00:07 Urine,Voided Urine Culture - Final Assessment and Plan (1) Status post vaginal hysterectomy Current Visit: Yes Status: Acute Code(s): Z90.710 - ACQUIRED ABSENCE OF BOTH CERVIX AND UTERUS SNOMED Code(s): 182580666 (2) Pelvic abscess Narrative/Plan: 46-year-old female who is status post robotic-assisted hysterectomy that was converted to a transvaginal hysterectomy who is developed fever and now an ileus. Computed tomography scan reveals evidence of fluid collections consistent with abscess within the pelvis. Antimicrobial therapy will be altered from Zosyn to meropenem which may be better tolerated especially given her significantly and diarrhea before she is showing some improvement at this time. If she does not have rapid improvement would ask interventional radiology if percutaneous drainage is possible. Cultures are in progress. She does have a leukocytosis that is somewhat persistent. She developed a significant ileus has occurred directly after having multiple loose stools. Her bowel function is being monitored the profuse diarrhea has improved this evening however is now nothing by mouth because of the ileus. 06/02/2017 patient to consult better. Is having some ice chips without any further worsening abdominal pain. Check she feels considerably better today. Is up and moving about. Is passing flatus as having some stool but it is improved from yesterday. She is impressed with the rapid improvement since the antibiotic change. If hours she has any further difficulties percutaneous drainage will be arranged. 06/03/2017 patient has more fatigue today and has been found evidence of significant anemia. Is being monitored for the need for potential transfusion. The patient had a good response to the meropenem and this will continue. Being monitored for the potential ongoing need for percutaneous drainage of abscess. Current Visit: Yes Status: Acute Code(s): NHJ2179 - SNOMED Code(s): 236865604 (3) Leukocytosis Current Visit: Yes Status: Acute Code(s): D72.829 - ELEVATED WHITE BLOOD CELL COUNT, UNSPECIFIED SNOMED Code(s): 793298777
--- NOTE | 2017-06-03 17:24 | PN ---
PROGRESS NOTE DATE OF SERVICE: 06/03/2017 This 46-year-old woman is admitted abdominal pain and discomfort, is being evaluated for pelvic abscess. The patient is n.p.o. White count is normalized. Patient has some abdominal distention. The patient also had anemia with a hemoglobin is 6.5 and 7. FULFILLMENT MAIL CLERK and multiple medications are following the patient closely. No chest pain. No palpitation. Creatinine is 1.63. PHYSICAL EXAM: Patient is alert, oriented x3. The pulse is 81, blood pressure 116/75, respiration 16, temperature 98.1, pulse ox 97% on room air. HEENT: Conjunctivae normal. NECK: No jugular venous distention. CARDIOVASCULAR: S1, S2. RESPIRATORY: Breath sounds diminished in the bases. No rhonchi, no crackles. ABDOMEN: Soft, mild diffuse discomfort. Otherwise no guarding. No rigidity. No mass palpable. LEGS: No edema. No swelling. NERVOUS SYSTEM: Higher functions as mentioned. Moves all four limbs. No focal deficits. LYMPHATIC: No lymphadenopathy in the neck, axillae, groin.. SKIN: No ulcer, rash or bleeding. LABS: WBC 10, hemoglobin 7, sodium 140, potassium 3.3. ASSESSMENT: 1. Abdominal pain, discomfort, rule out pelvic abscess with fever. 2. Increased WBC. 3. Anemia. 4. History of recent abdominal hysterectomy. 5. Hypothyroidism. 6. Acute renal failure. RECOMMENDATIONS AND DISCUSSION: I recommend to continue current medication, continue symptomatic treatment. Otherwise I would recommend continue with IV fluids and repeat labs in the morning. Follow the cultures. Most of the cultures are negative so far. Continue antibiotics and closely follow with Infectious Disease. Guarded prognosis. Further recommendations to follow. MMODL / IJN: [id number] /
[2017-06-03 21:45] LABS: Basophils # (A) 0.1 k/uL (0-0.2); Basophils % (A) 0 %; Eosinophils # (A) 0.2 k/uL (0-0.7); Eosinophils % (A) 1 %; HCT 22.9 % (34.0-46.0); Hypochromasia Slight; Lymphocytes # (A) 1.2 k/uL (1.0-4.8); Lymphocytes % (A) 10 %; MCH 29.1 pg (25.0-35.0); MCHC 30.7 g/dL (31.0-37.0); MCV 94.6 fL (80.0-100.0); Mean Platelet Volume 7.1; Monocytes # (A) 0.7 k/uL (0-1.0); Monocytes % (A) 6 %; Neutrophils # (A) 9.9 k/uL (1.3-7.7); Neutrophils % (A) 81 %; Platelet Count 365 k/uL (150-450); RBC 2.42 m/uL (3.80-5.40); RDW 15.4 % (11.5-15.5); WBC 12.2 k/uL (3.8-10.6)
[2017-06-04] MEDS: SODIUM CHLORIDE 0.9% 1,000 ML IV SCH (00:24)
[2017-06-04] MEDS: MEROPENEM 1 GM in SODIUM CHLORIDE 0.9% 100 ML IVPB SCH ×2 (00:24→12:17)
[2017-06-04] MEDS: HYDROmorphone 4 MG TABLET PO PRN ×2 (02:25→05:42)
[2017-06-04] MEDS: SIMETHICONE 80 MG CHEWABLE PO PRN (02:49)
[2017-06-04 03:14] LABS: Basophils % (A) 0 %; Eosinophils # (A) 0.2 k/uL (0-0.7); Eosinophils % (A) 1 %; HCT 22.7 % (34.0-46.0); Hypochromasia Slight; Lymphocytes # (A) 1.2 k/uL (1.0-4.8); Lymphocytes % (A) 10 %; MCH 29.2 pg (25.0-35.0); MCHC 30.6 g/dL (31.0-37.0); MCV 95.3 fL (80.0-100.0); Mean Platelet Volume 7.1; Monocytes # (A) 0.7 k/uL (0-1.0); Monocytes % (A) 6 %; Neutrophils # (A) 9.8 k/uL (1.3-7.7); Neutrophils % (A) 81 %; Platelet Count 353 k/uL (150-450); RBC 2.38 m/uL (3.80-5.40); RDW 15.4 % (11.5-15.5); WBC 12.1 k/uL (3.8-10.6)
[2017-06-04 03:17] LABS: HGB 6.9 gm/dL (11.4-16.0)
[2017-06-04 03:22] LABS: Partial Thromboplastin Time 24.2 sec (22.0-30.0); Prothrombin Time 9.5 sec (9.0-12.0)
[2017-06-04 03:24] LABS: Albumin 2.7 g/dL (3.5-5.0); Calcium 8.1 mg/dL (8.4-10.2); Phosphorus 3.2 mg/dL (2.5-4.5); Total Bilirubin 0.5 mg/dL (0.2-1.3); Total Protein 5.4 g/dL (6.3-8.2)
[2017-06-04 03:32] LABS: Potassium 3.2 mmol/L (3.5-5.1)
[2017-06-04 03:49] LABS: Creatine Kinase MB <0.2 ng/mL (0.0-2.4); Troponin I <0.012 ng/mL (0.000-0.034)
[2017-06-04] MEDS: PANTOPRAZOLE 40 MG TABLET PO SCH (06:35)
[2017-06-04] MEDS: LEVOTHYROXINE 137 MCG TAB PO SCH (06:35)
[2017-06-04] MEDS: VANCOMYCIN 1,250 MG in SODIUM CHLORIDE 0.9% 250 ML IVPB SCH (09:00)
--- NOTE | 2017-06-04 10:35 | XR ---
2 view abdomen HISTORY: Distention 2 views the abdomen on [address] scan from 06/01/2017 Multiple air-fluid levels, gas-distended loops of bowel are present. Lung bases show dependent atelec tatic changes. No evident pneumoperitoneum. Some distortion of the pubic symphysis is stable. IMPRESSION: Correlate for ileus versus obstruction, follow-up recommended.
[2017-06-04] MEDS ORDERED: FUROSEMIDE 10 MG/ML 2 ML VIAL IV ONE (13:20)
--- NOTE | 2017-06-04 16:54 | P.PN ---
Progress Note - Text Progress Note Date: 06/04/17 La seen and evaluated this afternoon. Her overall course has been relatively stagnant her white blood cell count is again 12 she is feeling more weak and somewhat lightheaded this afternoon she did receive 1 unit of blood earlier today. I have no areas for active bleeding but with her anemia 1 unit of blood should at least stabilize how she feels. Last night she currently had some severe chest pain and she had some earlier this afternoon chest pain last night was fully evaluated and no cardiac or pulmonary source could be found. After lengthy discussion with the patient on options for care discussion was whether we continue to observe but with her white blood cell count still 12 this does not seem to very viable option. We also discussed possibility of percutaneous CT-guided drainage but as we are unclear as to whether or not the area is truly an abscess or mixture of clot and blood as well as abscess the drainage may not be able to fully drain the area. Therefore we're planning to do a diagnostic laparoscopy possible open with drainage of abscess. Risks and benefits were discussed with patient in detail with her and all questions are answered for her prior to proceeding to the operative room. We' ll plan to do this with Dr. Rosales general surgeon in case we do uncover some other issue with bowel that may need to be addressed. As it is now been almost 5 days she's been on antibiotics I would expect a faster response and I'm concerned that the volume of infection that is in her abdomen is keeping her from being able to get better and therefore we'll plan to do surgical intervention for hopeful resolution of her abscess. All the questions are answered for her and her at this time. On physical exam vital signs again are at least stable for today and she is afebrile. Heart regular, lungs clear, extremities without pain. Abdomen is soft positive bowel sounds are noted assessment status post robotic-assisted laparoscopic vaginal hysterectomy with abscess. Plan as above
[2017-06-04] MEDS: 0.9% NACL WITH KCL 40 MEQ/L 1,000 ML IV SCH ×2 (17:10→22:30)
--- NOTE | 2017-06-04 17:13 | PN ---
PROGRESS NOTE DATE OF SERVICE: 06/04/2017 This 46-year-old woman who was admitted with abdominal pain and is being evaluated for pelvic abscess is being closely monitored. Patient also has anemia which is symptomatic. Patient complains of tiredness and weakness. No chest pain. No palpitations. No fever. On exam, alert and oriented x3. Pulse 76, blood pressure 133/83, respiration 20, temperature 98.2, pulse ox 98% on room air. HEENT: Conjunctivae pale. NECK: No jugular venous distention. CARDIOVASCULAR SYSTEM: S1, S2 muffled. RESPIRATORY SYSTEM: Breath sounds diminished at the bases. No rhonchi. ABDOMEN: Soft. Mild diffuse distention. LEGS: No edema. No swelling. NERVOUS SYSTEM: No focal deficit. LABS: WBC 12.1, hemoglobin 6.9, potassium 3.2. ASSESSMENT: 1. Abdominal pain and discomfort. Rule out pelvic abscess with fever. 2. Anemia. 3. Increased white count. 4. History of recent abdominal hysterectomy. 5. Hypothyroidism. 6. Acute renal failure. 7. Hypokalemia. RECOMMENDATIONS AND DISCUSSION: I recommend to continue current medication, continue symptomatic treatment. Otherwise at this time I would recommend closely monitor. I would recommend potassium supplementation. We will continue transfusions for symptomatic anemia. Otherwise continue the rest of the medications. Closely follow with Surgery and NUCLEAR INSTRUCTOR. Further recommendations to follow. MMTONYAL / ISACN: [id number] /
[2017-06-04] MEDS ORDERED: PROPOFOL 10 MG/ML 20 ML VIAL IV ONE (18:51)
[2017-06-04] MEDS ORDERED: IV FLUID CONTINUATION 900 ML IV ONE (18:51)
[2017-06-04] MEDS ORDERED: MIDAZOLAM 2 MG/2 ML VIAL ONE (18:51)
[2017-06-04] MEDS ORDERED: fentaNYL (PF) 50 MCG/ML 2 ML AMP ONE (18:51)
[2017-06-04] MEDS ORDERED: NEOSTIGMINE 1 MG/ML 10 ML VIAL ONE (18:51)
[2017-06-04] MEDS ORDERED: GLYCOPYRROLATE 0.2 MG/ML 2 ML VIAL ONE (18:51)
[2017-06-04] MEDS ORDERED: SUCCINYLCHOLINE CHLORIDE 100 MG/5 ML SYR IV ONE (18:51)
[2017-06-04] MEDS ORDERED: ROCURONIUM BROMIDE 10 MG/ML 10 ML VIAL IV ONE ×2 (18:51)
[2017-06-04] MEDS ORDERED: BUPIVACAINE (PF) 0.25% 30 ML VIAL SQ ONE (19:19)
--- NOTE | 2017-06-04 20:09 | P.GSCN ---
History of Present Illness Consult date: 06/04/17 Reason for Consult: Bowel obstruction History of present illness: We're consulted today to see this patient. She was actually evaluated in the preoperative area prior to her surgery this evening. She underwent a robotic hysterectomy converted to transvaginal hysterectomy on 2:15. Postoperatively the patient developed abdominal discomforts as well as intolerance of foods. She was found to be anemic. CAT scan performed on 06/01 showed free intraperitoneal fluid and some loculated air collections in the deep pelvis. The patient has been febrile with leukocytosis. She's been on various antibiotics. I have not seen the blood cultures but they were reportedly positive. Today's x-ray shows findings of either small bowel obstruction or ileus. The patient does have bowel sounds. It was decided to take the patient to the operative room for laparoscopy possible laparotomy in conjunction with gynecology. Review of Systems The patient denies any acute changes in vision or hearing, no dysphagia or odynophagia, no chest pain or shortness of breath, no dysuria or hematuria, no headache, no runny nose, no rectal bleeding or melena, no unexplained weight loss Past Medical History Past Medical History: Thyroid Disorder Additional Past Medical History / Comment(s): hx irregular periods with heavy vaginal bleeding History of Any Multi-Drug Resistant Organisms: None Reported Past Surgical History: Hysterectomy Additional Past Surgical History / Comment(s): hysterectomy on 05-24-2017 Past Anesthesia/Blood Transfusion Reactions: No Reported Reaction Additional Past Anesthesia/Blood Transfusion Reaction / Comm: pt states has never received anesthesia Past Psychological History: No Psychological Hx Reported Additional Psychological History / Comment(s): . Was in the family home with and child. Does work outside of the home. Stop smoking about a year ago. No significant alcohol use no recreational drug use. No experience. No international travel. 2 pet dogs in the home Smoking Status: Never smoker Past Alcohol Use History: None Reported Past Drug Use History: None Reported - Past Family History Mother Family Medical History: Hyperlipidemia, Hypertension Medications and Allergies Home Medications Medication Instructions Recorded Confirmed Type Cholecalciferol [Vitamin D3] 2,000 unit PO DAILY 08/11/16 05/29/17 History Acetaminophen-Codeine 300-30mg 1 tab PO Q4H PRN #30 tablet 05/25/17 05/29/17 Rx [Tylenol #3] Ibuprofen [Motrin] 600 mg PO Q6HR PRN #30 tab 05/25/17 05/29/17 Rx Levothyroxine Sodium [Synthroid] 137 mcg PO DAILY 05/29/17 05/29/17 History Polyethylene Glycol 3350 [Miralax] 17 gm PO DAILY PRN 05/29/17 05/29/17 History Allergies Allergy/AdvReac Type Severity Reaction Status Date / Time No Known Allergies Allergy Verified 05/29/17 21:30 Surgical - Exam Vital Signs Temp Pulse Resp BP Pulse Ox 100.0 F H 107 H 18 128/65 96 05/29/17 20:18 05/29/17 20:18 05/29/17 20:18 05/29/17 20:18 05/29/17 20:18 Physical exam: General: Well-developed, well-nourished HEENT: Normocephalic, sclerae nonicteric Abdomen: Distended, mild diffuse tenderness Extremities: No edema Neuro: Alert and oriented Results - Labs 06/04/17 02:34 06/04/17 02:34 Abnormal Lab Results - Last 24 Hours (Table) 06/03/17 06/03/17 06/04/17 Range/Units 06:26 21:35 02:34 WBC 12.2 H 12.1 H (3.8-10.6) k/uL RBC 2.42 L 2.38 L (3.80-5.40) m/uL Hgb 7.0 L* 6.9 L* (11.4-16.0) gm/dL Hct 22.9 L 22.7 L (34.0-46.0) % MCHC 30.7 L 30.6 L (31.0-37.0) g/dL Neutrophils # 9.9 H 9.8 H (1.3-7.7) k/uL Potassium (3.5-5.1) mmol/L Chloride (98-107) mmol/L Carbon Dioxide (22-30) mmol/L Creatinine (0.52-1.04) mg/dL Calcium (8.4-10.2) mg/dL Iron 26 L (50-170) ug/dL Iron Saturation 9.32 L (12.00-45.00) Total Protein (6.3-8.2) g/dL Albumin (3.5-5.0) g/dL Crossmatch 06/04/17 06/04/17 Range/Units 02:34 02:39 WBC (3.8-10.6) k/uL RBC (3.80-5.40) m/uL Hgb (11.4-16.0) gm/dL Hct (34.0-46.0) % MCHC (31.0-37.0) g/dL Neutrophils # (1.3-7.7) k/uL Potassium 3.2 L (3.5-5.1) mmol/L Chloride 112 H (98-107) mmol/L Carbon Dioxide 18 L (22-30) mmol/L Creatinine 1.40 H (0.52-1.04) mg/dL Calcium 8.1 L (8.4-10.2) mg/dL Iron (50-170) ug/dL Iron Saturation (12.00-45.00) Total Protein 5.4 L (6.3-8.2) g/dL Albumin 2.7 L (3.5-5.0) g/dL Crossmatch See Detail Microbiology - Last 24 Hours (Table) 05/30/17 16:50 Blood Culture - Preliminary Blood No Growth after 120 hours 06/02/17 06:16 Blood Culture - Preliminary Blood No Growth after 48 hours 05/30/17 22:00 Blood Culture - Preliminary Blood No Growth after 96 hours Diabetes panel 06/04/17 Range/Units 02:34 Sodium 141 (137-145) mmol/L Potassium 3.2 L (3.5-5.1) mmol/L Chloride 112 H (98-107) mmol/L Carbon Dioxide 18 L (22-30) mmol/L BUN 12 (7-17) mg/dL Creatinine 1.40 H (0.52-1.04) mg/dL Glucose 94 (74-99) mg/dL Calcium 8.1 L (8.4-10.2) mg/dL AST 17 (14-36) U/L ALT 28 (9-52) U/L Alkaline Phosphatase 96 (38-126) U/L Total Protein 5.4 L (6.3-8.2) g/dL Albumin 2.7 L (3.5-5.0) g/dL Calcium panel 06/04/17 Range/Units 02:34 Calcium 8.1 L (8.4-10.2) mg/dL Phosphorus 3.2 (2.5-4.5) mg/dL Albumin 2.7 L (3.5-5.0) g/dL Pituitary panel 06/04/17 Range/Units 02:34 Sodium 141 (137-145) mmol/L Potassium 3.2 L (3.5-5.1) mmol/L Chloride 112 H (98-107) mmol/L Carbon Dioxide 18 L (22-30) mmol/L BUN 12 (7-17) mg/dL Creatinine 1.40 H (0.52-1.04) mg/dL Glucose 94 (74-99) mg/dL Calcium 8.1 L (8.4-10.2) mg/dL Adrenal panel 06/04/17 Range/Units 02:34 Sodium 141 (137-145) mmol/L Potassium 3.2 L (3.5-5.1) mmol/L Chloride 112 H (98-107) mmol/L Carbon Dioxide 18 L (22-30) mmol/L BUN 12 (7-17) mg/dL Creatinine 1.40 H (0.52-1.04) mg/dL Glucose 94 (74-99) mg/dL Calcium 8.1 L (8.4-10.2) mg/dL Total Bilirubin 0.5 (0.2-1.3) mg/dL AST 17 (14-36) U/L ALT 28 (9-52) U/L Alkaline Phosphatase 96 (38-126) U/L Total Protein 5.4 L (6.3-8.2) g/dL Albumin 2.7 L (3.5-5.0) g/dL Assessment and Plan (1) Bowel obstruction Narrative/Plan: Will proceed with diagnostic laparoscopy, possible laparotomy, possible bowel resection, possible ostomy. Risks of bleeding, infection, laparotomy, ostomy, recurrent abscess, hernia, anesthesia related, locations were discussed. She and her understand and wish to proceed. Current Visit: Yes Status: Acute Code(s): K56.609 - UNSP INTESTNL OBST, UNSP TO PARTIAL VERSUS COMPLETE OBST SNOMED Code(s): 32003098
--- NOTE | 2017-06-04 20:13 | P.OP ---
Date of Procedure: 06/04/17 Procedure(s) Performed: PREOPERATIVE DIAGNOSIS: Small bowel obstruction, pelvic abscess POSTOPERATIVE DIAGNOSIS: Small bowel obstruction secondary to adhesions, infected pelvic hematoma PROCEDURE: Laparoscopic lysed of adhesions with evacuation hematoma SURGEON: Bobby EBL: Minimal see anesthesia record ANESTHESIA: Gen. COMPLICATIONS: None OPERATIVE PROCEDURE: The patient was brought and placed on the operating room table in the supine position. The patient was placed under general anesthesia at that time. A preoperative nasogastric tube was placed. The abdomen was prepped and draped in the usual sterile fashion. The previous supraumbilical 5 mm incision was localized and re-incised. The optical 5 mm trocar was used to enter the perineal cavity at that location. The previous right mid abdominal 5 mm trocar, the left lower quadrant 5 mm trocar, and the lateral aspect of the 10 mm left upper quadrant trocar were re-incised. 5 mm trochars were placed at these 3 additional sites. The patient had some free bloody fluid within the abdominal cavity was irrigated and evacuated. The patient was placed in steep Trendelenburg. Using blunt dissection the left tube and ovary were noted to be adherent to the anterior aspect of the proximal sigmoid colon and the pelvic sidewall. There was some old hematoma like formation there. This was suctioned and again broken apart using blunt dissection. There was no visible injury to the sigmoid colon. Distal aspect of the sigmoid colon was adherent to the right tube and ovary and these were again bluntly dissected. We were able to visualize a small opening in the superior aspect of the vaginal closure. The stitch from the vaginal closure was visualized. All hematoma in that area was evacuated to the best of our ability. Irrigation took place with no evidence of active bleeding. Overall the volume of blood was less than expected. The small bowel was then run from the ligament of Treitz to the ileocecal valve. In doing so I identified a tight kink in the proximal to mid jejunum related to a area of adhesions from the omentum. This appeared to be the site of partial small bowel obstruction. This was lysed without difficulty. We then placed a drain in the hematoma site just above the vaginal closure. This was brought out through the right lower quadrant incision site and sutured to the skin using a 3-0 silk stitch. The pneumoperitoneum was evacuated. The skin at all 4 sites was closed using a 4-0 Monocryl stitch. Steri-Strips and sterile dressings were applied. At the end of this procedure the sponge and needle counts were correct. DISPOSITION: Stable to the recovery room
[2017-06-04] MEDS: MORPHINE SULFATE 4 MG/ML SYRINGE IVP PRN (21:56)
--- NOTE | 2017-06-04 22:07 | P.PN ---
Subjective Progress Note Date: 06/04/17 Principal diagnosis: Pelvic abscess 46-year-old female who has a history of a hysterectomy from 05/24/2017. The procedure started as a robotic procedure was converted to a transvaginal hysterectomy. Originally the patient was doing relatively well. However then she started developing increasing amounts of abdominal pain. She also developed relatively profuse bouts of diarrhea associated with the severe lower abdominal/pelvic pain. She then developed a significant fever and presented to Hospital she was found to have evidence of the fever as well as leukocytosis. Antibiotic therapy was initiated. The patient has had some low- grade temperature continues to have leukocytosis. She is still having some abdominal discomfort. It actually worsened quite a bit this morning when she developed evidence of an ileus. With this the infectious diseases consultation was requested and the patient underwent CT scanning. Computed tomography scan does reveal evidence of abscess within the lower pelvis. Patient being treated with piperacillin tazobactam. Does relate she continues to feel poorly. Especially the onset of ileus. She's been feeling warm and febrile. She had nausea that is now improved. No hematemesis melena or hematochezia. Her profuse diarrhea has also improved. She had no melena or hematochezia June 02 2017 patient is feeling better today. Doing well with current antibiotic therapy. She relates that since changing to Merrem she had a sudden improvement of her status. Her pain improved. Her diarrhea improved. June 03, 2017 patient feeling more tired today. It is noted that her hemoglobin has dropped and is being monitored closely for any further decline. Her abdominal pain is improved. Continues to feel better as far as fever and chill after meropenem was started. Case is discussed with the gluer machine operator stool for occult blood is being obtained. 06/04/2017 revealed that the patient continues to feel poorly today. She is not having significant fevers since antibiotic change but continues to have some leukocytosis and has some ongoing anemia requiring a blood transfusion. The case is discussed with the gluer machine operator, is also discussed with the interventional radiologist. Objective - Vital Signs Vital signs: Vital Signs Temp 98 F 06/04/17 20:13 Pulse 87 06/04/17 20:58 Resp 16 06/04/17 20:58 BP 147/89 06/04/17 20:58 Pulse Ox 93 L 06/04/17 20:58 Intake & Output 02/06/04/17 06/05/17 06:59 18:59 06:59 Intake Total 2410 200 Output Total 1360 Balance 2410 -1160 Intake: IV 600 200 Oral 1500 Blood Product 310 Rc As-3 Unit 310 [id number] Output: Urine 1350 Estimated Blood Loss 10 Other: Voiding Method Toilet # Voids 1 1 - Exam 46-year-old female who is somewhat uncomfortable because of her distended abdomen HEENT: Anicteric conjunctiva are pale but moist nasal mucosa grossly intact without significant lesions, there is no thrush. Neck: The neck is supple without significant lymphadenopathy or thyromegaly. Lungs: Good bilateral air entry without significant crackles or wheezing. There is no significant bronchial sounds. There is no egophony or dullness. Heart: Regular rate and rhythm with an audible S1-S2, no S3 no S4. There is no significant murmur click or rub, PMI was nondisplaced. Abdomen: Distended, some generalized tenderness especially deep low abdominal wall without guarding or rebound Extremities: The upper extremities have excellent pulses they are symmetric, no significant petechiae or telangiectasia. No splinter hemorrhages were noted. The lower extremities are free from significant edema. The peripheral pulses were 2+ and symmetric. Neuro: Awake alert oriented to person place and time. There are no acute new gross focal sensory motor deficits. - Labs CBC & Chem 7: 06/04/17 02:34 06/04/17 02:34 Labs: Abnormal Lab Results - Last 24 Hours (Table) 06/03/17 06/04/17 06/04/17 Range/Units 06:26 02:34 02:34 WBC 12.1 H (3.8-10.6) k/uL RBC 2.38 L (3.80-5.40) m/uL Hgb 6.9 L* (11.4-16.0) gm/dL Hct 22.7 L (34.0-46.0) % MCHC 30.6 L (31.0-37.0) g/dL Neutrophils # 9.8 H (1.3-7.7) k/uL Potassium 3.2 L (3.5-5.1) mmol/L Chloride 112 H (98-107) mmol/L Carbon Dioxide 18 L (22-30) mmol/L Creatinine 1.40 H (0.52-1.04) mg/dL Calcium 8.1 L (8.4-10.2) mg/dL Iron 26 L (50-170) ug/dL Iron Saturation 9.32 L (12.00-45.00) Total Protein 5.4 L (6.3-8.2) g/dL Albumin 2.7 L (3.5-5.0) g/dL Crossmatch 06/04/17 Range/Units 02:39 WBC (3.8-10.6) k/uL RBC (3.80-5.40) m/uL Hgb (11.4-16.0) gm/dL Hct (34.0-46.0) % MCHC (31.0-37.0) g/dL Neutrophils # (1.3-7.7) k/uL Potassium (3.5-5.1) mmol/L Chloride (98-107) mmol/L Carbon Dioxide (22-30) mmol/L Creatinine (0.52-1.04) mg/dL Calcium (8.4-10.2) mg/dL Iron (50-170) ug/dL Iron Saturation (12.00-45.00) Total Protein (6.3-8.2) g/dL Albumin (3.5-5.0) g/dL Crossmatch See Detail Microbiology - Last 24 Hours (Table) 05/30/17 16:50 Blood Culture - Preliminary Blood No Growth after 120 hours 06/02/17 06:16 Blood Culture - Preliminary Blood No Growth after 48 hours 05/30/17 22:00 Blood Culture - Preliminary Blood No Growth after 96 hours Laboratory Results WBC 12.1 k/uL (3.8-10.6) H 06/04/17 02:34 RBC 2.38 m/uL (3.80-5.40) L 06/04/17 02:34 Hgb 6.9 gm/dL (11.4-16.0) L* 06/04/17 02:34 Hct 22.7 % (34.0-46.0) L 06/04/17 02:34 MCV 95.3 fL (80.0-100.0) 06/04/17 02:34 MCH 29.2 pg (25.0-35.0) 06/04/17 02:34 MCHC 30.6 g/dL (31.0-37.0) L 06/04/17 02:34 RDW 15.4 % (11.5-15.5) 06/04/17 02:34 Plt Count 353 k/uL (150-450) 06/04/17 02:34 Neutrophils % 81 % 06/04/17 02:34 Lymphocytes % 10 % 06/04/17 02:34 Monocytes % 6 % 06/04/17 02:34 Eosinophils % 1 % 06/04/17 02:34 Basophils % 0 % 06/04/17 02:34 Neutrophils # 9.8 k/uL (1.3-7.7) H 06/04/17 02:34 Lymphocytes # 1.2 k/uL (1.0-4.8) 06/04/17 02:34 Monocytes # 0.7 k/uL (0-1.0) 06/04/17 02:34 Eosinophils # 0.2 k/uL (0-0.7) 06/04/17 02:34 Basophils # 0.0 k/uL (0-0.2) 06/04/17 02:34 Hypochromasia Slight 06/04/17 02:34 Macrocytosis Slight 06/03/17 10:02 PT 9.5 sec (9.0-12.0) 06/04/17 02:34 INR 1.0 (<1.2) 06/04/17 02:34 APTT 24.2 sec (22.0-30.0) 06/04/17 02:34 Sodium 141 mmol/L (137-145) 06/04/17 02:34 Potassium 3.2 mmol/L (3.5-5.1) L 06/04/17 02:34 Chloride 112 mmol/L (98-107) H 06/04/17 02:34 Carbon Dioxide 18 mmol/L (22-30) L 06/04/17 02:34 Anion Gap 11 mmol/L 06/04/17 02:34 BUN 12 mg/dL (7-17) 06/04/17 02:34 Creatinine 1.40 mg/dL (0.52-1.04) H 06/04/17 02:34 Est GFR (MDRD) Af Amer 49 (>60 ml/min/1.73 sqM) 02/26/18 02:34 Est GFR (MDRD) Non-Af 41 (>60 ml/min/1.73 sqM) 06/04/17 02:34 Glucose 94 mg/dL (74-99) 06/04/17 02:34 Plasma Lactic Acid Dany 0.9 mmol/L (0.7-2.0) 06/02/17 17:45 Calcium 8.1 mg/dL (8.4-10.2) L 06/04/17 02:34 Phosphorus 3.2 mg/dL (2.5-4.5) 06/04/17 02:34 Magnesium 2.2 mg/dL (1.6-2.3) 06/04/17 02:34 Iron 26 ug/dL (50-170) L 06/03/17 06:26 TIBC 279 ug/dL (228-460) 06/03/17 06:26 Iron Saturation 9.32 (12.00-45.00) L 06/03/17 06:26 Ferritin 140.4 ng/mL (10.0-291.0) 06/03/17 06:26 Total Bilirubin 0.5 mg/dL (0.2-1.3) 06/04/17 02:34 AST 17 U/L (14-36) 06/04/17 02:34 ALT 28 U/L (9-52) 06/04/17 02:34 Alkaline Phosphatase 96 U/L (38-126) 06/04/17 02:34 CK-MB (CK-2) <0.2 ng/mL (0.0-2.4) 06/04/17 02:34 Troponin I <0.012 ng/mL (0.000-0.034) 06/04/17 02:34 Total Protein 5.4 g/dL (6.3-8.2) L 06/04/17 02:34 Albumin 2.7 g/dL (3.5-5.0) L 06/04/17 02:34 Urine Color Yellow 05/30/17 00:07 Urine Appearance Clear (Clear) 05/30/17 00:07 Urine pH 7.0 (5.0-8.0) 05/30/17 00:07 Ur Specific [place] 1.044 (1.001-1.035) H 05/30/17 00:07 Urine Protein Trace (Negative) H 05/30/17 00:07 Urine Glucose (UA) Negative (Negative) 05/30/17 00:07 Urine Ketones Negative (Negative) 05/30/17 00:07 Urine Blood Large (Negative) H 05/30/17 00:07 Urine Nitrite Negative (Negative) 05/30/17 00:07 Urine Bilirubin Negative (Negative) 05/30/17 00:07 Urine Urobilinogen <2.0 mg/dL (<2.0) 05/30/17 00:07 Ur Leukocyte Esterase Small (Negative) H 05/30/17 00:07 Urine RBC >182 /hpf (0-5) H 05/30/17 00:07 Urine WBC 17 /hpf (0-5) H 05/30/17 00:07 Ur Squamous Epith Cells 3 /hpf (0-4) 05/30/17 00:07 Stool Occult Blood Negative (Negative) 06/03/17 18:25 Vancomycin Trough 27.7 ug/mL 06/01/17 13:03 Random Vancomycin 13.9 ug/mL 06/03/17 06:26 C. difficile (EIA) Intrp Negative (Negative) 05/30/17 18:28 Blood Type O Positive 06/04/17 02:39 Blood Type Recheck No 06/04/17 02:39 Antibody Screen NEGATIVE 06/04/17 02:39 Crossmatch See Detail 06/04/17 02:39 Spec Expiration Date 06/07/2017 - 2319 06/04/17 02:39 Microbiology 05/30/17 16:50 Blood Blood Culture - Preliminary No Growth after 120 hours 06/02/17 06:16 Blood Blood Culture - Preliminary No Growth after 48 hours 05/30/17 22:00 Blood Blood Culture - Preliminary No Growth after 96 hours 05/30/17 00:07 Urine,Voided Urine Culture - Final Assessment and Plan (1) Status post vaginal hysterectomy Current Visit: Yes Status: Acute Code(s): Z90.710 - ACQUIRED ABSENCE OF BOTH CERVIX AND UTERUS SNOMED Code(s): 883066565 (2) Pelvic abscess Narrative/Plan: 46-year-old female who is status post robotic-assisted hysterectomy that was converted to a transvaginal hysterectomy who is developed fever and now an ileus. Computed tomography scan reveals evidence of fluid collections consistent with abscess within the pelvis. Antimicrobial therapy will be altered from Zosyn to meropenem which may be better tolerated especially given her significantly and diarrhea before she is showing some improvement at this time. If she does not have rapid improvement would ask interventional radiology if percutaneous drainage is possible. Cultures are in progress. She does have a leukocytosis that is somewhat persistent. She developed a significant ileus has occurred directly after having multiple loose stools. Her bowel function is being monitored the profuse diarrhea has improved this evening however is now nothing by mouth because of the ileus. 06/02/2017 patient to consult better. Is having some ice chips without any further worsening abdominal pain. Check she feels considerably better today. Is up and moving about. Is passing flatus as having some stool but it is improved from yesterday. She is impressed with the rapid improvement since the antibiotic change. If hours she has any further difficulties percutaneous drainage will be arranged. 06/03/2017 patient has more fatigue today and has been found evidence of significant anemia. Is being monitored for the need for potential transfusion. The patient had a good response to the meropenem and this will continue. Being monitored for the potential ongoing need for percutaneous drainage of abscess. 06/04/2017. The patient remains ill. She still has to be in fatigue and malaise. Required blood transfusion because of her ongoing anemia. The case is reviewed with interventional radiologist it appears that she would have better outcome if the area was surgically evaluated in consequently Dr. Rosales's been consulted and she wanted operating room later today with gynecology and general surgery to evaluate bleeding into the abdominal cavity and evacuation of the fluid collections with concern that this is infection or hematoma. Antibiotic therapy continues for now as we monitored in the postoperative time frame. Current Visit: Yes Status: Acute Code(s): KWV4947 - SNOMED Code(s): 802735402 (3) Leukocytosis Current Visit: Yes Status: Acute Code(s): D72.829 - ELEVATED WHITE BLOOD CELL COUNT, UNSPECIFIED SNOMED Code(s): 181208795
[2017-06-05] MEDS: MEROPENEM 1 GM in SODIUM CHLORIDE 0.9% 100 ML IVPB SCH ×3 (00:40→23:41)
[2017-06-05] MEDS: MORPHINE SULFATE 4 MG/ML SYRINGE IVP PRN ×5 (01:16→21:22)
[2017-06-05 06:28] LABS: Basophils # (A) 0.1 k/uL (0-0.2); Basophils % (A) 1 %; Eosinophils # (A) 0.1 k/uL (0-0.7); Eosinophils % (A) 1 %; HCT 25.2 % (34.0-46.0); HGB 7.9 gm/dL (11.4-16.0); Lymphocytes # (A) 1.1 k/uL (1.0-4.8); Lymphocytes % (A) 9 %; MCH 29.2 pg (25.0-35.0); MCHC 31.1 g/dL (31.0-37.0); MCV 93.9 fL (80.0-100.0); Mean Platelet Volume 7.3; Monocytes # (A) 0.7 k/uL (0-1.0); Monocytes % (A) 5 %; Neutrophils # (A) 11.1 k/uL (1.3-7.7); Neutrophils % (A) 83 %; Platelet Count 378 k/uL (150-450); RBC 2.69 m/uL (3.80-5.40); RDW 15.1 % (11.5-15.5); WBC 13.3 k/uL (3.8-10.6)
[2017-06-05 06:36] LABS: Albumin 2.6 g/dL (3.5-5.0); Calcium 7.9 mg/dL (8.4-10.2); Potassium 3.5 mmol/L (3.5-5.1); Total Bilirubin 0.6 mg/dL (0.2-1.3); Total Protein 5.4 g/dL (6.3-8.2)
[2017-06-05] MEDS: PANTOPRAZOLE 40 MG TABLET PO SCH (06:40)
[2017-06-05] MEDS: LEVOTHYROXINE 137 MCG TAB PO SCH (06:40)
[2017-06-05] MEDS: VANCOMYCIN 1,250 MG in SODIUM CHLORIDE 0.9% 250 ML IVPB SCH (09:13)
--- NOTE | 2017-06-05 12:57 | P.PN ---
Subjective Progress Note Date: 06/05/17 Principal diagnosis: Small bowel obstruction Patient feels better today. Mild pain. AP drain serosanguineous. She is afebrile. White blood cell count 13.3. Hemoglobin 7.9. No flatus or bowel movement. Objective - Vital Signs Vital signs: Vital Signs Temp 97.7 F 06/05/17 07:55 Pulse 81 06/05/17 07:55 Resp 20 06/05/17 08:00 BP 154/90 06/05/17 07:55 Pulse Ox 94 L 06/05/17 07:55 Intake & Output 06/04/17 06/05/17 06/05/17 18:59 06:59 18:59 Intake Total 2410 200 Output Total 2300 18 Balance 2409 Weight 71.668 kg Intake: IV 600 200 Oral 1500 Blood Product 310 Rc As-3 Unit 310 [id number] Output: Gastric Drainage 120 Drainage 220 18 Right Lower Abdomen 220 18 Urine 1950 Estimated Blood Loss 10 Other: Voiding Method Toilet Indwelling Catheter Indwelling Catheter # Voids 1 - Exam Abdomen: Soft, nondistended, mild incisional tenderness, dressings intact, bowel sounds sluggish - Labs CBC & Chem 7: 06/05/17 05:43 06/05/17 05:43 Labs: Abnormal Lab Results - Last 24 Hours (Table) 06/04/17 06/05/17 06/05/17 Range/Units 02:39 05:43 05:43 WBC 13.3 H (3.8-10.6) k/uL RBC 2.69 L (3.80-5.40) m/uL Hgb 7.9 L (11.4-16.0) gm/dL Hct 25.2 L (34.0-46.0) % Neutrophils # 11.1 H (1.3-7.7) k/uL Sodium 147 H (137-145) mmol/L Chloride 117 H (98-107) mmol/L Carbon Dioxide 19 L (22-30) mmol/L Creatinine 1.40 H (0.52-1.04) mg/dL Calcium 7.9 L (8.4-10.2) mg/dL Total Protein 5.4 L (6.3-8.2) g/dL Albumin 2.6 L (3.5-5.0) g/dL Crossmatch See Detail Microbiology - Last 24 Hours (Table) 06/04/17 19:30 Anaerobic Culture - Preliminary Peritoneal Fluid 06/02/17 06:16 Blood Culture - Preliminary Blood No Growth after 72 hours 06/04/17 19:30 Gram Stain - Preliminary Peritoneal Fluid Body Fluid Culture - Preliminary 05/30/17 22:00 Blood Culture - Preliminary Blood No Growth after 120 hours 05/30/17 16:50 Blood Culture - Preliminary Blood No Growth after 120 hours Assessment and Plan (1) Bowel obstruction Narrative/Plan: Continue NG tube to suction. Ambulate. Repeat labs tomorrow. Current Visit: Yes Status: Acute Code(s): K56.609 - UNSP INTESTNL OBST, UNSP TO PARTIAL VERSUS COMPLETE OBST SNOMED Code(s): 40289998
--- NOTE | 2017-06-05 13:16 | XR ---
EXAMINATION TYPE: XR chest 1V portable DATE OF EXAM: 06/05/2017 COMPARISON: 05/31/2017 HISTORY: Shortness of breath TECHNIQUE: Single frontal view of the chest is obtained. FINDINGS: Bilateral lower lobe infiltrate and small effusion. NG tube seen. There is no pneumothorax . Heart size stable. Dilated bowel loops in the abdomen noted. IMPRESSION: 1. Bilateral infiltrate and small effusion. Correlate clinically. Findings greatest at the left lung base.
[2017-06-05] MEDS: 0.9% NACL WITH KCL 40 MEQ/L 1,000 ML IV SCH (14:51)
[2017-06-05] MEDS: ALBUTEROL NEBULIZED 2.5 MG/3 ML INHALATION SCH ×2 (19:07→19:24)
--- NOTE | 2017-06-05 19:42 | P.PN ---
Progress Note - Text Progress Note Date: 06/05/17 La seen and evaluated this evening, her pain is worse she says her abdomen with still some distention NG tube told to suction. PAUL drain is draining serous sanguinous fluid only. She has ambulated now 3 times but has not passed flatus and does not really have good bowel sounds likely secondary to manipulation yesterday. She is tolerating ice chips and popsicles but certainly not ready for advancement of diet at this time. Her vital signs are over stable and she is afebrile. We'll await labs for tomorrow. Overall she is stable I'm optimistic once her bowels recover from surgery assume that she should certainly better relatively quickly. Assessment postop day 1 now from diagnostic laparoscopy with drainage of hematoma plan continue care.
--- NOTE | 2017-06-05 20:05 | PN ---
PROGRESS NOTE DATE OF SERVICE: 06/05/20262017 This 46-year-old woman who had surgery, had abdominal symptoms and the patient also had features of small bowel obstruction. Patient underwent surgery yesterday with lysis of adhesions as well as evacuation of hematoma by Dr. Rosales, evacuation of infected pelvic hematoma also by Dr. Rosales and laparoscopic lysis of adhesions with evacuation of hematoma was done. Patient being closely monitored at this time. Patient has occasional cough. The patient transfused for symptomatic anemia. PAST MEDICAL HISTORY: Reviewed. REVIEW OF SYSTEMS: Cardiovascular as mentioned. Respiratory: As mentioned earlier. GI as mentioned earlier. : No dysuria. Central nervous system: No numbness or weakness. CURRENT MEDICATIONS ARE: 1. Tylenol p.r.n. 2. Dilaudid 4 mg p.o. q.6h. 3. Synthroid 137 mcg daily. 4. Meropenem 1 g IV b.i.d. 5. Reglan p.r.n. 6. Vancomycin. 7. Narcan. 8. Zofran p.r.n. 9. Protonix 40 mg b.i.d. 11.Vancomycin. PHYSICAL EXAM: Patient is alert, oriented x3. Pulse 73, blood pressure 140/87, respiration 18, temperature 98.2, pulse ox 94% on room air. HEENT: Conjunctivae normal. Oral mucosa moist. Neck is no jugular venous distention. No lymph node enlargement. No carotid bruit. Cardiovascular: S1, S2. Respiratory: Breath sounds diminished in the bases. A few scattered rhonchi and crackles. ABDOMEN: Soft, status post surgery. Legs: No edema. No swelling. Central nervous system: No focal deficits. LABS: WBC 13.3, hemoglobin 7.9. Other labs are sodium 147, potassium 3.5, albumin is 2.6. ASSESSMENT: 1. Abdominal pain with discomfort, possibly infected pelvic hematoma and partial small- bowel obstruction status post exploratory laparotomy, evacuation of the hematoma and as well as additional lysis by Dr. Rosales. 2. Anemia. 3. Increased WBC. 4. History of recent abdominal hysterectomy. 5. Hypothyroidism. 6. Acute renal failure. 7. Hypokalemia. 8. Bilateral atelectasis. RECOMMENDATIONS AND DISCUSSION: Recommend to continue current medications, management and continue with antibiotics. The creatinine appears to be stable at this time. Otherwise we will await culture report. Patient underwent surgery. Patient appears to be feeling better. Chest x-ray findings noted. Further recommendations to follow. VILLAL / ISACN: [id number] / MTDD
--- NOTE | 2017-06-05 22:35 | P.PN ---
Subjective Progress Note Date: 06/05/17 Principal diagnosis: Pelvic abscess 46-year-old female who has a history of a hysterectomy from 05/24/2017. The procedure started as a robotic procedure was converted to a transvaginal hysterectomy. Originally the patient was doing relatively well. However then she started developing increasing amounts of abdominal pain. She also developed relatively profuse bouts of diarrhea associated with the severe lower abdominal/pelvic pain. She then developed a significant fever and presented to Hospital she was found to have evidence of the fever as well as leukocytosis. Antibiotic therapy was initiated. The patient has had some low- grade temperature continues to have leukocytosis. She is still having some abdominal discomfort. It actually worsened quite a bit this morning when she developed evidence of an ileus. With this the infectious diseases consultation was requested and the patient underwent CT scanning. Computed tomography scan does reveal evidence of abscess within the lower pelvis. Patient being treated with piperacillin tazobactam. Does relate she continues to feel poorly. Especially the onset of ileus. She's been feeling warm and febrile. She had nausea that is now improved. No hematemesis melena or hematochezia. Her profuse diarrhea has also improved. She had no melena or hematochezia June 02 2017 patient is feeling better today. Doing well with current antibiotic therapy. She relates that since changing to Merrem she had a sudden improvement of her status. Her pain improved. Her diarrhea improved. June 03, 2017 patient feeling more tired today. It is noted that her hemoglobin has dropped and is being monitored closely for any further decline. Her abdominal pain is improved. Continues to feel better as far as fever and chill after meropenem was started. Case is discussed with the flame planer stool for occult blood is being obtained. 06/04/2017 revealed that the patient continues to feel poorly today. She is not having significant fevers since antibiotic change but continues to have some leukocytosis and has some ongoing anemia requiring a blood transfusion. The case is discussed with the flame planer, is also discussed with the interventional radiologist. 06/05/2017 patient is status post be surgical intervention with exploratory laparoscopy with lysis of adhesions for small bowel obstruction, drainage of pelvic material in abscess and repair of the vaginal cuff. Patient is improved but still is having some abdominal pain. NG tube is to suction and she is feeling at her than yesterday. Pain control is adequate and she is not having any other acute difficulties Objective - Vital Signs Vital signs: Vital Signs Temp 98.9 F 06/05/17 20:19 Pulse 78 06/05/17 20:19 Resp 20 06/05/17 20:19 BP 156/92 06/05/17 20:19 Pulse Ox 95 06/05/17 20:19 Intake & Output 06/05/17 06/05/17 06/06/17 06:59 18:59 06:59 Intake Total 200 360 Output Total 2300 1378 330 Balance -2100 -1018 -330 Weight 71.668 kg Intake: IV 200 Oral 360 Output: Gastric Drainage 120 800 Drainage 220 158 30 Right Lower Abdomen 220 158 30 Urine 1950 420 300 Estimated Blood Loss 10 Other: Voiding Method Indwelling Catheter Indwelling Catheter # Voids 1 1 - Exam 46-year-old female who is somewhat uncomfortable with the NG but has less abdominal pain HEENT: Anicteric conjunctiva are pale but moist nasal mucosa grossly intact without significant lesions, there is no thrush. Neck: The neck is supple without significant lymphadenopathy or thyromegaly. Lungs: Good bilateral air entry without significant crackles or wheezing. There is no significant bronchial sounds. There is no egophony or dullness. Heart: Regular rate and rhythm with an audible S1-S2, no S3 no S4. There is no significant murmur click or rub, PMI was nondisplaced. Abdomen: Distended, some generalized tenderness especially deep low abdominal wall without guarding or rebound Extremities: The upper extremities have excellent pulses they are symmetric, no significant petechiae or telangiectasia. No splinter hemorrhages were noted. The lower extremities are free from significant edema. The peripheral pulses were 2+ and symmetric. Neuro: Awake alert oriented to person place and time. There are no acute new gross focal sensory motor deficits. - Labs CBC & Chem 7: 06/05/17 05:43 06/05/17 05:43 Labs: Abnormal Lab Results - Last 24 Hours (Table) 06/05/17 06/05/17 Range/Units 05:43 05:43 WBC 13.3 H (3.8-10.6) k/uL RBC 2.69 L (3.80-5.40) m/uL Hgb 7.9 L (11.4-16.0) gm/dL Hct 25.2 L (34.0-46.0) % Neutrophils # 11.1 H (1.3-7.7) k/uL Sodium 147 H (137-145) mmol/L Chloride 117 H (98-107) mmol/L Carbon Dioxide 19 L (22-30) mmol/L Creatinine 1.40 H (0.52-1.04) mg/dL Calcium 7.9 L (8.4-10.2) mg/dL Total Protein 5.4 L (6.3-8.2) g/dL Albumin 2.6 L (3.5-5.0) g/dL Microbiology - Last 24 Hours (Table) 06/04/17 19:30 Gram Stain - Preliminary Peritoneal Fluid Body Fluid Culture - Preliminary 05/30/17 16:50 Blood Culture - Final Blood No Growth after 144 hours 06/04/17 19:30 Anaerobic Culture - Preliminary Peritoneal Fluid 06/02/17 06:16 Blood Culture - Preliminary Blood No Growth after 72 hours 05/30/17 22:00 Blood Culture - Preliminary Blood No Growth after 120 hours Laboratory Results WBC 13.3 k/uL (3.8-10.6) H 06/05/17 05:43 RBC 2.69 m/uL (3.80-5.40) L 06/05/17 05:43 Hgb 7.9 gm/dL (11.4-16.0) L 06/05/17 05:43 Hct 25.2 % (34.0-46.0) L 06/05/17 05:43 MCV 93.9 fL (80.0-100.0) 06/05/17 05:43 MCH 29.2 pg (25.0-35.0) 06/05/17 05:43 MCHC 31.1 g/dL (31.0-37.0) 06/05/17 05:43 RDW 15.1 % (11.5-15.5) 06/05/17 05:43 Plt Count 378 k/uL (150-450) 06/05/17 05:43 Neutrophils % 83 % 06/05/17 05:43 Lymphocytes % 9 % 06/05/17 05:43 Monocytes % 5 % 06/05/17 05:43 Eosinophils % 1 % 06/05/17 05:43 Basophils % 1 % 06/05/17 05:43 Neutrophils # 11.1 k/uL (1.3-7.7) H 06/05/17 05:43 Lymphocytes # 1.1 k/uL (1.0-4.8) 06/05/17 05:43 Monocytes # 0.7 k/uL (0-1.0) 06/05/17 05:43 Eosinophils # 0.1 k/uL (0-0.7) 06/05/17 05:43 Basophils # 0.1 k/uL (0-0.2) 06/05/17 05:43 Hypochromasia Slight 06/04/17 02:34 Macrocytosis Slight 06/03/17 10:02 PT 9.5 sec (9.0-12.0) 06/04/17 02:34 INR 1.0 (<1.2) 06/04/17 02:34 APTT 24.2 sec (22.0-30.0) 06/04/17 02:34 Sodium 147 mmol/L (137-145) H 06/05/17 05:43 Potassium 3.5 mmol/L (3.5-5.1) 06/05/17 05:43 Chloride 117 mmol/L (98-107) H 06/05/17 05:43 Carbon Dioxide 19 mmol/L (22-30) L 06/05/17 05:43 Anion Gap 11 mmol/L 06/05/17 05:43 BUN 13 mg/dL (7-17) 06/05/17 05:43 Creatinine 1.40 mg/dL (0.52-1.04) H 06/05/17 05:43 Est GFR (MDRD) Af Amer 49 (>60 ml/min/1.73 sqM) 06/05/17 05:43 Est GFR (MDRD) Non-Af 41 (>60 ml/min/1.73 sqM) 06/05/17 05:43 Glucose 94 mg/dL (74-99) 06/05/17 05:43 Plasma Lactic Acid Dany 0.9 mmol/L (0.7-2.0) 06/02/17 17:45 Calcium 7.9 mg/dL (8.4-10.2) L 06/05/17 05:43 Phosphorus 3.2 mg/dL (2.5-4.5) 06/04/17 02:34 Magnesium 2.2 mg/dL (1.6-2.3) 06/04/17 02:34 Iron 26 ug/dL (50-170) L 06/03/17 06:26 TIBC 279 ug/dL (228-460) 06/03/17 06:26 Iron Saturation 9.32 (12.00-45.00) L 06/03/17 06:26 Ferritin 140.4 ng/mL (10.0-291.0) 06/03/17 06:26 Total Bilirubin 0.6 mg/dL (0.2-1.3) 06/05/17 05:43 AST 18 U/L (14-36) 06/05/17 05:43 ALT 26 U/L (9-52) 06/05/17 05:43 Alkaline Phosphatase 90 U/L (38-126) 06/05/17 05:43 CK-MB (CK-2) <0.2 ng/mL (0.0-2.4) 06/04/17 02:34 Troponin I <0.012 ng/mL (0.000-0.034) 06/04/17 02:34 Total Protein 5.4 g/dL (6.3-8.2) L 06/05/17 05:43 Albumin 2.6 g/dL (3.5-5.0) L 06/05/17 05:43 Urine Color Yellow 05/30/17 00:07 Urine Appearance Clear (Clear) 05/30/17 00:07 Urine pH 7.0 (5.0-8.0) 05/30/17 00:07 Ur Specific [place] 1.044 (1.001-1.035) H 05/30/17 00:07 Urine Protein Trace (Negative) H 05/30/17 00:07 Urine Glucose (UA) Negative (Negative) 05/30/17 00:07 Urine Ketones Negative (Negative) 05/30/17 00:07 Urine Blood Large (Negative) H 05/30/17 00:07 Urine Nitrite Negative (Negative) 05/30/17 00:07 Urine Bilirubin Negative (Negative) 05/30/17 00:07 Urine Urobilinogen <2.0 mg/dL (<2.0) 05/30/17 00:07 Ur Leukocyte Esterase Small (Negative) H 05/30/17 00:07 Urine RBC >182 /hpf (0-5) H 05/30/17 00:07 Urine WBC 17 /hpf (0-5) H 05/30/17 00:07 Ur Squamous Epith Cells 3 /hpf (0-4) 05/30/17 00:07 Stool Occult Blood Negative (Negative) 06/03/17 18:25 Vancomycin Trough 27.7 ug/mL 06/01/17 13:03 Random Vancomycin 13.9 ug/mL 06/03/17 06:26 C. difficile (EIA) Intrp Negative (Negative) 05/30/17 18:28 Blood Type O Positive 06/04/17 02:39 Blood Type Recheck No 06/04/17 02:39 Antibody Screen NEGATIVE 06/04/17 02:39 Crossmatch See Detail 06/04/17 02:39 Spec Expiration Date 06/07/2017 - 2339 06/04/17 02:39 Microbiology 06/04/17 19:30 Peritoneal Fluid Gram Stain - Preliminary 06/04/17 19:30 Peritoneal Fluid Body Fluid Culture - Preliminary 05/30/17 16:50 Blood Blood Culture - Final No Growth after 144 hours 06/04/17 19:30 Peritoneal Fluid Anaerobic Culture - Preliminary 06/02/17 06:16 Blood Blood Culture - Preliminary No Growth after 72 hours 05/30/17 22:00 Blood Blood Culture - Preliminary No Growth after 120 hours 05/30/17 00:07 Urine,Voided Urine Culture - Final Assessment and Plan (1) Status post vaginal hysterectomy Current Visit: Yes Status: Acute Code(s): Z90.710 - ACQUIRED ABSENCE OF BOTH CERVIX AND UTERUS SNOMED Code(s): 036681708 (2) Pelvic abscess Narrative/Plan: 46-year-old female who is status post robotic-assisted hysterectomy that was converted to a transvaginal hysterectomy who is developed fever and now an ileus. Computed tomography scan reveals evidence of fluid collections consistent with abscess within the pelvis. Antimicrobial therapy will be altered from Zosyn to meropenem which may be better tolerated especially given her significantly and diarrhea before she is showing some improvement at this time. If she does not have rapid improvement would ask interventional radiology if percutaneous drainage is possible. Cultures are in progress. She does have a leukocytosis that is somewhat persistent. She developed a significant ileus has occurred directly after having multiple loose stools. Her bowel function is being monitored the profuse diarrhea has improved this evening however is now nothing by mouth because of the ileus. 06/02/2017 patient to consult better. Is having some ice chips without any further worsening abdominal pain. Check she feels considerably better today. Is up and moving about. Is passing flatus as having some stool but it is improved from yesterday. She is impressed with the rapid improvement since the antibiotic change. If hours she has any further difficulties percutaneous drainage will be arranged. 06/03/2017 patient has more fatigue today and has been found evidence of significant anemia. Is being monitored for the need for potential transfusion. The patient had a good response to the meropenem and this will continue. Being monitored for the potential ongoing need for percutaneous drainage of abscess. 06/04/2017. The patient remains ill. She still has to be in fatigue and malaise. Required blood transfusion because of her ongoing anemia. The case is reviewed with interventional radiologist it appears that she would have better outcome if the area was surgically evaluated in consequently Dr. Rosales's been consulted and she wanted operating room later today with gynecology and general surgery to evaluate bleeding into the abdominal cavity and evacuation of the fluid collections with concern that this is infection or hematoma. Antibiotic therapy continues for now as we monitored in the postoperative time frame. 06/05/2017 the patient is status post the laparoscopy with lysis of adhesions for resolution of her small bowel obstruction, evacuation of the fluid collection and repair of the vaginal cuff. Patient is feeling better today. She is less abdominal pain, is a little uncomfortable because of the NG tube but overall feels better than 24 hours ago. Her energy level is a bit improved after her transfusion and is noted that her hemoglobin is now stable. Current Visit: Yes Status: Acute Code(s): CXT0277 - SNOMED Code(s): 513356773 (3) Leukocytosis Current Visit: Yes Status: Acute Code(s): D72.829 - ELEVATED WHITE BLOOD CELL COUNT, UNSPECIFIED SNOMED Code(s): 001560635
[2017-06-06] MEDS: MORPHINE SULFATE 4 MG/ML SYRINGE IVP PRN ×2 (00:16→07:17)
[2017-06-06] MEDS: 0.9% NACL WITH KCL 40 MEQ/L 1,000 ML IV SCH (04:10)
[2017-06-06] MEDS: LEVOTHYROXINE 137 MCG TAB PO SCH (06:20)
[2017-06-06] MEDS ORDERED: VANCOMYCIN TROUGH DUE 1 EACH MISC MISCELLANE ONE (08:00)
[2017-06-06 08:21] LABS: Basophils # (A) 0.1 k/uL (0-0.2); Basophils % (A) 0 %; Eosinophils # (A) 0.2 k/uL (0-0.7); Eosinophils % (A) 1 %; HCT 24.8 % (34.0-46.0); Hypochromasia Slight; Lymphocytes # (A) 1.2 k/uL (1.0-4.8); Lymphocytes % (A) 9 %; MCH 29.9 pg (25.0-35.0); MCHC 32.4 g/dL (31.0-37.0); MCV 92.4 fL (80.0-100.0); Mean Platelet Volume 9.2; Monocytes # (A) 0.7 k/uL (0-1.0); Monocytes % (A) 6 %; Neutrophils # (A) 10.1 k/uL (1.3-7.7); Neutrophils % (A) 81 %; Platelet Count 378 k/uL (150-450); RBC 2.68 m/uL (3.80-5.40); RDW 15.7 % (11.5-15.5); WBC 12.5 k/uL (3.8-10.6)
[2017-06-06] MEDS: ALBUTEROL NEBULIZED 2.5 MG/3 ML INHALATION SCH ×4 (08:32→18:57)
[2017-06-06 08:45] LABS: Albumin 2.8 g/dL (3.5-5.0); Calcium 8.2 mg/dL (8.4-10.2); Potassium 3.6 mmol/L (3.5-5.1); Total Bilirubin 0.6 mg/dL (0.2-1.3); Total Protein 5.8 g/dL (6.3-8.2)
[2017-06-06] MEDS: VANCOMYCIN 1,250 MG in SODIUM CHLORIDE 0.9% 250 ML IVPB SCH (09:48)
[2017-06-06] MEDS: PANTOPRAZOLE 40 MG TABLET PO SCH (09:52)
--- NOTE | 2017-06-06 11:58 | P.PN ---
Subjective Progress Note Date: 06/06/17 Principal diagnosis: Small bowel obstruction Patient doing well today. Abdominal pain is improved. She is passing flatus. No nausea. PAUL drain serosanguineous. No significant fevers. Labs reviewed. Objective - Vital Signs Vital signs: Vital Signs Temp 98.4 F 06/06/17 07:55 Pulse 64 06/06/17 10:00 Resp 16 06/06/17 10:00 BP 154/93 06/06/17 07:55 Pulse Ox 96 06/06/17 07:55 Intake & Output 06/05/17 06/06/17 06/06/17 18:59 06:59 18:59 Intake Total 360 700 40 Output Total 1378 1340 600 Balance -1194 -640 -560 Weight 71.668 kg Intake: Oral 360 700 40 Output: Gastric Drainage 800 Drainage 158 140 60 Right Lower Abdomen 158 140 60 Urine 420 1200 540 Other: Voiding Method Indwelling Catheter # Voids 1 2 1 - Exam Abdomen: Soft, nondistended, mild incisional tenderness, dressings intact, PAUL serosanguineous - Labs CBC & Chem 7: 06/06/17 08:11 06/06/17 08:11 Labs: Abnormal Lab Results - Last 24 Hours (Table) 06/06/17 06/06/17 Range/Units 08:11 08:11 WBC 12.5 H (3.8-10.6) k/uL RBC 2.68 L (3.80-5.40) m/uL Hgb 8.0 L (11.4-16.0) gm/dL Hct 24.8 L (34.0-46.0) % RDW 15.7 H (11.5-15.5) % Neutrophils # 10.1 H (1.3-7.7) k/uL Sodium 151 H (137-145) mmol/L Chloride 119 H (98-107) mmol/L Carbon Dioxide 21 L (22-30) mmol/L Creatinine 1.27 H (0.52-1.04) mg/dL Glucose 105 H (74-99) mg/dL Calcium 8.2 L (8.4-10.2) mg/dL Total Protein 5.8 L (6.3-8.2) g/dL Albumin 2.8 L (3.5-5.0) g/dL Microbiology - Last 24 Hours (Table) 06/02/17 06:16 Blood Culture - Preliminary Blood No Growth after 96 hours 05/30/17 22:00 Blood Culture - Final Blood No Growth after 144 hours 06/04/17 19:30 Gram Stain - Preliminary Peritoneal Fluid Body Fluid Culture - Preliminary 05/30/17 16:50 Blood Culture - Final Blood No Growth after 144 hours 06/04/17 19:30 Anaerobic Culture - Preliminary Peritoneal Fluid Assessment and Plan (1) Bowel obstruction Narrative/Plan: Ambulate. Remove nasogastric tube. Begin clear liquid diet. Continue antibiotics. Current Visit: Yes Status: Acute Code(s): K56.609 - UNSP INTESTNL OBST, UNSP TO PARTIAL VERSUS COMPLETE OBST SNOMED Code(s): 07363825
[2017-06-06] MEDS: MEROPENEM 1 GM in SODIUM CHLORIDE 0.9% 100 ML IVPB SCH (12:17)
[2017-06-06] MEDS: DEXTROSE 5% IN WATER 1,000 ML with POTASSIUM CHLORIDE 20 MEQ IV SCH (13:12)
[2017-06-06] MEDS: ACETAMINOPHEN TAB 325 MG TAB PO PRN (13:17)
[2017-06-06] MEDS: SIMETHICONE 80 MG CHEWABLE PO PRN (13:18)
--- NOTE | 2017-06-06 14:21 | P.PN ---
Progress Note - Text Progress Note Date: 06/06/17 La seen and evaluated this afternoon. She is up ambulating and all. She reports that she is passing flatus last night she's not passed much flatus today but feels like her bowels are moving and she expected to happen soon. Her white blood cell count is still mildly elevated and perhaps has small pneumonia based on x-ray. We will continue antibiotic therapy and continue trying to get her up and ambulate more to try and get her feeling better. Her pain is otherwise improved pain and she's having now is more incisional and more postoperative pain than what she was having prior to the surgery. Assessment postdate to from its foreshortened upper otoscopy plan for now continue current care.
[2017-06-06] MEDS: METOCLOPRAMIDE 5 MG/ML 2 ML VIAL IVP PRN (17:11)
[2017-06-06] MEDS: HYDROmorphone 4 MG TABLET PO PRN ×2 (17:12→23:42)
--- NOTE | 2017-06-06 18:00 | PN ---
PROGRESS NOTE DATE OF SERVICE: 06/06/2017. INTERVAL HISTORY: This 46-year-old woman was admitted after abdominal pain and discomfort with possible infected pelvic hematoma with surgery and evacuation. The patient also had small bowel lysis of adhesions also. No chest pain. No palpitations. No fever. Dr. Rosales and Dr. Lambert are following the patient closely. PAST MEDICAL HISTORY: Reviewed. REVIEW OF SYSTEMS: CARDIOVASCULAR: No angina. RESPIRATORY: As mentioned earlier. GI: As mentioned. : No dysuria. NERVOUS SYSTEM: No numbness or weakness. CURRENT MEDICATIONS: 1. Tylenol p.r.n. 2. Ventolin 2.5 q.i.d. 3. Dilaudid 4 mg q.2h p.r.n. 4. Synthroid 130 mcg. 5. Meropenem 1 g IV b.i.d. 6. Reglan. 7. Narcan. 8. Zofran. 9. Protonix. 10.Vancomycin. EXAM: Alert and oriented x2. Pulse is 68, blood pressure 135/82, respiration 20, temperature 98.1, pulse ox 99% on room air. HEENT: Conjunctivae normal. NECK: No jugular venous distention. CARDIOVASCULAR: S1, S2. RESPIRATORY: Breath sounds diminished in the bases. A few rhonchi and crackles. ABDOMEN: Soft. Mild diffuse distention. LEGS: No edema. NERVOUS SYSTEM: No focal deficits. LABS: WBC 12.2, hemoglobin 8. Sodium 151. ASSESSMENT: 1. Abdominal pain, discomfort, possible infected pelvic hematoma and partial small- bowel obstruction status post exploratory laparotomy, evacuation and hematoma and as well as additional lysis by Dr. Rosales. 2. Anemia. 3. Hypernatremia. 4. Increased WBC. 5. Bilateral atelectasis. 6. History of recent abdominal hysterectomy. 7. Hypothyroidism. 8. Acute renal failure. 9. Hypokalemia. RECOMMENDATIONS AND DISCUSSION: I recommend to continue current management and symptomatic treatment. At this time I recommend change the fluid to D5 water. Monitor sodium and chloride closely. Otherwise hemoglobin is 8, after transfusion. WBCs still elevated 12.5. Continue to monitor closely. Creatinine is stable at 1.27. Monitor fluid and electrolyte balance closely. Incentive spirometry and as well as course of bronchodilators. Further recommendations to follow. MMODL / IJN: [id number] /
--- NOTE | 2017-06-06 22:00 | P.PN ---
Subjective Progress Note Date: 06/06/17 Principal diagnosis: Pelvic abscess 46-year-old female who has a history of a hysterectomy from 05/24/2017. The procedure started as a robotic procedure was converted to a transvaginal hysterectomy. Originally the patient was doing relatively well. However then she started developing increasing amounts of abdominal pain. She also developed relatively profuse bouts of diarrhea associated with the severe lower abdominal/pelvic pain. She then developed a significant fever and presented to Hospital she was found to have evidence of the fever as well as leukocytosis. Antibiotic therapy was initiated. The patient has had some low- grade temperature continues to have leukocytosis. She is still having some abdominal discomfort. It actually worsened quite a bit this morning when she developed evidence of an ileus. With this the infectious diseases consultation was requested and the patient underwent CT scanning. Computed tomography scan does reveal evidence of abscess within the lower pelvis. Patient being treated with piperacillin tazobactam. Does relate she continues to feel poorly. Especially the onset of ileus. She's been feeling warm and febrile. She had nausea that is now improved. No hematemesis melena or hematochezia. Her profuse diarrhea has also improved. She had no melena or hematochezia June 02 2017 patient is feeling better today. Doing well with current antibiotic therapy. She relates that since changing to Merrem she had a sudden improvement of her status. Her pain improved. Her diarrhea improved. June 03, 2017 patient feeling more tired today. It is noted that her hemoglobin has dropped and is being monitored closely for any further decline. Her abdominal pain is improved. Continues to feel better as far as fever and chill after meropenem was started. Case is discussed with the sr technical sales consultant stool for occult blood is being obtained. 06/04/2017 revealed that the patient continues to feel poorly today. She is not having significant fevers since antibiotic change but continues to have some leukocytosis and has some ongoing anemia requiring a blood transfusion. The case is discussed with the sr technical sales consultant, is also discussed with the interventional radiologist. 06/05/2017 patient is status post be surgical intervention with exploratory laparoscopy with lysis of adhesions for small bowel obstruction, drainage of pelvic material in abscess and repair of the vaginal cuff. Patient is improved but still is having some abdominal pain. NG tube is to suction and she is feeling at her than yesterday. Pain control is adequate and she is not having any other acute difficulties 06/06/2017 patient has improved and is up walking the schumacher and is having flatus with improved abdominal pain. Fells much better since NG tube removal. He is denying nausea or emesis. Has tolerated some clear liquids in small amount without great difficulties. Does not have abdominal pain if she was having before. Denies the deep pelvic pain she was having. No fevers or chills. Objective - Vital Signs Vital signs: Vital Signs Temp 99.2 F 06/06/17 20:53 Pulse 64 06/06/17 20:53 Resp 20 06/06/17 20:53 BP 143/81 06/06/17 20:53 Pulse Ox 95 06/06/17 20:53 Intake & Output 06/06/17 06/06/17 06/07/17 06:59 18:59 06:59 Intake Total 700 440 240 Output Total 1340 1140 450 Balance -640 -700 -210 Intake: Oral 700 440 240 Output: Drainage 140 100 100 Right Lower Abdomen 140 100 100 Urine 1200 1040 350 Other: Voiding Method Toilet # Voids 2 1 1 - Exam 46-year-old female who is less uncomfortable, NG tube was removed with improved abdominal function HEENT: Anicteric conjunctiva are pale but moist nasal mucosa grossly intact without significant lesions, there is no thrush. Neck: The neck is supple without significant lymphadenopathy or thyromegaly. Lungs: Good bilateral air entry without significant crackles or wheezing. There is no significant bronchial sounds. There is no egophony or dullness. Heart: Regular rate and rhythm with an audible S1-S2, no S3 no S4. There is no significant murmur click or rub, PMI was nondisplaced. Abdomen: No longer distended, few bowel sounds are heard. She has passing flatus and some discomfort from the surgical procedure. Extremities: The upper extremities have excellent pulses they are symmetric, no significant petechiae or telangiectasia. No splinter hemorrhages were noted. The lower extremities are free from significant edema. The peripheral pulses were 2+ and symmetric. Neuro: Awake alert oriented to person place and time. There are no acute new gross focal sensory motor deficits. - Labs CBC & Chem 7: 06/06/17 08:11 06/06/17 08:11 Labs: Abnormal Lab Results - Last 24 Hours (Table) 06/06/17 06/06/17 Range/Units 08:11 08:11 WBC 12.5 H (3.8-10.6) k/uL RBC 2.68 L (3.80-5.40) m/uL Hgb 8.0 L (11.4-16.0) gm/dL Hct 24.8 L (34.0-46.0) % RDW 15.7 H (11.5-15.5) % Neutrophils # 10.1 H (1.3-7.7) k/uL Sodium 151 H (137-145) mmol/L Chloride 119 H (98-107) mmol/L Carbon Dioxide 21 L (22-30) mmol/L Creatinine 1.27 H (0.52-1.04) mg/dL Glucose 105 H (74-99) mg/dL Calcium 8.2 L (8.4-10.2) mg/dL Total Protein 5.8 L (6.3-8.2) g/dL Albumin 2.8 L (3.5-5.0) g/dL Microbiology - Last 24 Hours (Table) 06/04/17 19:30 Gram Stain - Preliminary Peritoneal Fluid Body Fluid Culture - Preliminary 06/02/17 06:16 Blood Culture - Preliminary Blood No Growth after 96 hours 05/30/17 22:00 Blood Culture - Final Blood No Growth after 144 hours 05/30/17 16:50 Blood Culture - Final Blood No Growth after 144 hours Laboratory Results WBC 12.5 k/uL (3.8-10.6) H 06/06/17 08:11 RBC 2.68 m/uL (3.80-5.40) L 06/06/17 08:11 Hgb 8.0 gm/dL (11.4-16.0) L 06/06/17 08:11 Hct 24.8 % (34.0-46.0) L 06/06/17 08:11 MCV 92.4 fL (80.0-100.0) 06/06/17 08:11 MCH 29.9 pg (25.0-35.0) 06/06/17 08:11 MCHC 32.4 g/dL (31.0-37.0) 06/06/17 08:11 RDW 15.7 % (11.5-15.5) H 06/06/17 08:11 Plt Count 378 k/uL (150-450) 06/06/17 08:11 Neutrophils % 81 % 06/06/17 08:11 Lymphocytes % 9 % 06/06/17 08:11 Monocytes % 6 % 06/06/17 08:11 Eosinophils % 1 % 06/06/17 08:11 Basophils % 0 % 06/06/17 08:11 Neutrophils # 10.1 k/uL (1.3-7.7) H 06/06/17 08:11 Lymphocytes # 1.2 k/uL (1.0-4.8) 06/06/17 08:11 Monocytes # 0.7 k/uL (0-1.0) 06/06/17 08:11 Eosinophils # 0.2 k/uL (0-0.7) 06/06/17 08:11 Basophils # 0.1 k/uL (0-0.2) 06/06/17 08:11 Hypochromasia Slight 06/06/17 08:11 Macrocytosis Slight 06/03/17 10:02 PT 9.5 sec (9.0-12.0) 06/04/17 02:34 INR 1.0 (<1.2) 06/04/17 02:34 APTT 24.2 sec (22.0-30.0) 06/04/17 02:34 Sodium 151 mmol/L (137-145) H 06/06/17 08:11 Potassium 3.6 mmol/L (3.5-5.1) 06/06/17 08:11 Chloride 119 mmol/L (98-107) H 06/06/17 08:11 Carbon Dioxide 21 mmol/L (22-30) L 06/06/17 08:11 Anion Gap 11 mmol/L 06/06/17 08:11 BUN 13 mg/dL (7-17) 06/06/17 08:11 Creatinine 1.27 mg/dL (0.52-1.04) H 06/06/17 08:11 Est GFR (MDRD) Af Amer 55 (>60 ml/min/1.73 sqM) 06/06/17 08:11 Est GFR (MDRD) Non-Af 46 (>60 ml/min/1.73 sqM) 06/06/17 08:11 Glucose 105 mg/dL (74-99) H 06/06/17 08:11 Plasma Lactic Acid Dany 0.9 mmol/L (0.7-2.0) 06/02/17 17:45 Calcium 8.2 mg/dL (8.4-10.2) L 06/06/17 08:11 Phosphorus 3.2 mg/dL (2.5-4.5) 06/04/17 02:34 Magnesium 2.2 mg/dL (1.6-2.3) 06/04/17 02:34 Iron 26 ug/dL (50-170) L 06/03/17 06:26 TIBC 279 ug/dL (228-460) 06/03/17 06:26 Iron Saturation 9.32 (12.00-45.00) L 06/03/17 06:26 Ferritin 140.4 ng/mL (10.0-291.0) 06/03/17 06:26 Total Bilirubin 0.6 mg/dL (0.2-1.3) 06/06/17 08:11 AST 15 U/L (14-36) 06/06/17 08:11 ALT 26 U/L (9-52) 06/06/17 08:11 Alkaline Phosphatase 92 U/L (38-126) 06/06/17 08:11 CK-MB (CK-2) <0.2 ng/mL (0.0-2.4) 06/04/17 02:34 Troponin I <0.012 ng/mL (0.000-0.034) 06/04/17 02:34 Total Protein 5.8 g/dL (6.3-8.2) L 06/06/17 08:11 Albumin 2.8 g/dL (3.5-5.0) L 06/06/17 08:11 Urine Color Yellow 05/30/17 00:07 Urine Appearance Clear (Clear) 05/30/17 00:07 Urine pH 7.0 (5.0-8.0) 05/30/17 00:07 Ur Specific [place] 1.044 (1.001-1.035) H 05/30/17 00:07 Urine Protein Trace (Negative) H 05/30/17 00:07 Urine Glucose (UA) Negative (Negative) 05/30/17 00:07 Urine Ketones Negative (Negative) 05/30/17 00:07 Urine Blood Large (Negative) H 05/30/17 00:07 Urine Nitrite Negative (Negative) 05/30/17 00:07 Urine Bilirubin Negative (Negative) 05/30/17 00:07 Urine Urobilinogen <2.0 mg/dL (<2.0) 05/30/17 00:07 Ur Leukocyte Esterase Small (Negative) H 05/30/17 00:07 Urine RBC >182 /hpf (0-5) H 05/30/17 00:07 Urine WBC 17 /hpf (0-5) H 05/30/17 00:07 Ur Squamous Epith Cells 3 /hpf (0-4) 05/30/17 00:07 Stool Occult Blood Negative (Negative) 06/03/17 18:25 Vancomycin Trough 11.8 ug/mL 06/06/17 08:11 Random Vancomycin 13.9 ug/mL 06/03/17 06:26 C. difficile (EIA) Intrp Negative (Negative) 05/30/17 18:28 Blood Type O Positive 06/04/17 02:39 Blood Type Recheck No 06/04/17 02:39 Antibody Screen NEGATIVE 06/04/17 02:39 Crossmatch See Detail 06/04/17 02:39 Spec Expiration Date 06/07/2017 - 3173 06/04/17 02:39 Microbiology 06/04/17 19:30 Peritoneal Fluid Gram Stain - Preliminary 06/04/17 19:30 Peritoneal Fluid Body Fluid Culture - Preliminary 06/02/17 06:16 Blood Blood Culture - Preliminary No Growth after 96 hours 05/30/17 22:00 Blood Blood Culture - Final No Growth after 144 hours 05/30/17 16:50 Blood Blood Culture - Final No Growth after 144 hours 06/04/17 19:30 Peritoneal Fluid Anaerobic Culture - Preliminary 05/30/17 00:07 Urine,Voided Urine Culture - Final Assessment and Plan (1) Status post vaginal hysterectomy Current Visit: Yes Status: Acute Code(s): Z90.710 - ACQUIRED ABSENCE OF BOTH CERVIX AND UTERUS SNOMED Code(s): 668633352 (2) Pelvic abscess Narrative/Plan: 46-year-old female who is status post robotic-assisted hysterectomy that was converted to a transvaginal hysterectomy who is developed fever and now an ileus. Computed tomography scan reveals evidence of fluid collections consistent with abscess within the pelvis. Antimicrobial therapy will be altered from Zosyn to meropenem which may be better tolerated especially given her significantly and diarrhea before she is showing some improvement at this time. If she does not have rapid improvement would ask interventional radiology if percutaneous drainage is possible. Cultures are in progress. She does have a leukocytosis that is somewhat persistent. She developed a significant ileus has occurred directly after having multiple loose stools. Her bowel function is being monitored the profuse diarrhea has improved this evening however is now nothing by mouth because of the ileus. 06/02/2017 patient to consult better. Is having some ice chips without any further worsening abdominal pain. Check she feels considerably better today. Is up and moving about. Is passing flatus as having some stool but it is improved from yesterday. She is impressed with the rapid improvement since the antibiotic change. If hours she has any further difficulties percutaneous drainage will be arranged. 06/03/2017 patient has more fatigue today and has been found evidence of significant anemia. Is being monitored for the need for potential transfusion. The patient had a good response to the meropenem and this will continue. Being monitored for the potential ongoing need for percutaneous drainage of abscess. 06/04/2017. The patient remains ill. She still has to be in fatigue and malaise. Required blood transfusion because of her ongoing anemia. The case is reviewed with interventional radiologist it appears that she would have better outcome if the area was surgically evaluated in consequently Dr. Rosales's been consulted and she wanted operating room later today with gynecology and general surgery to evaluate bleeding into the abdominal cavity and evacuation of the fluid collections with concern that this is infection or hematoma. Antibiotic therapy continues for now as we monitored in the postoperative time frame. 06/05/2017 the patient is status post the laparoscopy with lysis of adhesions for resolution of her small bowel obstruction, evacuation of the fluid collection and repair of the vaginal cuff. Patient is feeling better today. She is less abdominal pain, is a little uncomfortable because of the NG tube but overall feels better than 24 hours ago. Her energy level is a bit improved after her transfusion and is noted that her hemoglobin is now stable. 06/06/2017 reveals the patient having further improvement. She is up and walking the hallways and having some flatus. Abdominal pain is much improved. Leukocytosis starting to trend in the improved direction and her hemoglobin has increased without further transfusion. Overall showing improvement. Await the final cultures to direct antibiotic therapy for home. Current Visit: Yes Status: Acute Code(s): WQX9224 - SNOMED Code(s): 790405744 (3) Leukocytosis Current Visit: Yes Status: Acute Code(s): D72.829 - ELEVATED WHITE BLOOD CELL COUNT, UNSPECIFIED SNOMED Code(s): 834645817
[2017-06-06] MEDS: ONDANSETRON 4 MG/2 ML VIAL IVP PRN (23:47)
[2017-06-07] MEDS: SIMETHICONE 80 MG CHEWABLE PO PRN (00:08)
[2017-06-07] MEDS: MEROPENEM 1 GM in SODIUM CHLORIDE 0.9% 100 ML IVPB SCH ×3 (00:10→23:51)
[2017-06-07] MEDS: DEXTROSE 5% IN WATER 1,000 ML with POTASSIUM CHLORIDE 20 MEQ IV SCH (05:24)
[2017-06-07] MEDS: LEVOTHYROXINE 137 MCG TAB PO SCH (06:44)
[2017-06-07 06:52] LABS: Basophils # (A) 0.1 k/uL (0-0.2); Basophils % (A) 1 %; Eosinophils # (A) 0.2 k/uL (0-0.7); Eosinophils % (A) 2 %; HCT 23.4 % (34.0-46.0); HGB 7.3 gm/dL (11.4-16.0); Hypochromasia Slight; Lymphocytes # (A) 1.2 k/uL (1.0-4.8); Lymphocytes % (A) 10 %; MCH 29.2 pg (25.0-35.0); MCHC 31.3 g/dL (31.0-37.0); MCV 93.3 fL (80.0-100.0); Mean Platelet Volume 7.5; Monocytes # (A) 0.7 k/uL (0-1.0); Monocytes % (A) 6 %; Neutrophils # (A) 9.6 k/uL (1.3-7.7); Neutrophils % (A) 79 %; Platelet Count 412 k/uL (150-450); RDW 15.6 % (11.5-15.5); WBC 12.1 k/uL (3.8-10.6)
[2017-06-07 06:57] LABS: ALT 28 U/L (9-52); AST 16 U/L (14-36); Albumin 2.6 g/dL (3.5-5.0); Alkaline Phosphatase 78 U/L (38-126); Anion Gap 8 mmol/L; Blood Urea Nitrogen 10 mg/dL (7-17); Calcium 8.2 mg/dL (8.4-10.2); Carbon Dioxide 22 mmol/L (22-30); Chloride 110 mmol/L (98-107); Glucose 96 mg/dL (74-99); Potassium 3.1 mmol/L (3.5-5.1); Sodium 140 mmol/L (137-145); Total Bilirubin 0.5 mg/dL (0.2-1.3); Total Protein 5.4 g/dL (6.3-8.2)
[2017-06-07] MEDS: PANTOPRAZOLE 40 MG TABLET PO SCH (07:51)
[2017-06-07] MEDS: ALBUTEROL NEBULIZED 2.5 MG/3 ML INHALATION SCH ×4 (07:56→19:28)
--- NOTE | 2017-06-07 08:44 | P.PN ---
<Rhonda Alvarado M - Last Filed: 06/07/17 08:28> Subjective Progress Note Date: 06/07/17 46-year-old female sitting up on the edge of the bed being seen this morning patient states is passing gas no stool no nausea and tolerating diet PAUL drain serosanguineous drainage. Abdomen soft surgical dressing sites dry reports Reports pain medication effective for pain control states has been up ambulating in the schumacher. Patient is status post exploratory laparotomy with lysis of adhesions for small bowel obstruction drainage of pelvic abscess and repair of vaginal cuff. Done on June 04. Objective - Vital Signs Vital signs: Vital Signs Temp 98.1 F 06/07/17 01:08 Pulse 65 06/07/17 08:08 Resp 16 06/07/17 01:08 BP 149/84 06/07/17 01:08 Pulse Ox 96 06/07/17 01:08 Intake & Output 06/06/17 06/07/17 06/07/17 18:59 06:59 18:59 Intake Total 440 240 Output Total 1140 1260 Balance -700 -1020 Intake: Oral 440 240 Output: Drainage 100 260 Right Lower Abdomen 100 260 Urine 1040 1000 Other: Voiding Method Toilet # Voids 1 1 - Exam Physical exam Pleasant 46-year-old female sitting on the edge of the bed oriented 3 states is ambulating in the hallway this morning Lungs adequate air movement on room incentive spirometer can achieve 2000 no cough noted Heart S1-S2 audible regular Abdomen soft nondistended mild incisional tenderness surgical dressings dry. PAUL draining serosanguineous drainage bowel tones present passing gas no stool no nausea no vomiting tolerating full diet Extremities Venodyne's on to the bilateral lower extreme - Labs CBC & Chem 7: 06/07/17 06:02 06/07/17 06:02 Labs: Abnormal Lab Results - Last 24 Hours (Table) 06/06/17 06/06/17 06/07/17 Range/Units 08:11 08:11 06:02 WBC 12.5 H 12.1 H (3.8-10.6) k/uL RBC 2.68 L 2.50 L (3.80-5.40) m/uL Hgb 8.0 L 7.3 L (11.4-16.0) gm/dL Hct 24.8 L 23.4 L (34.0-46.0) % RDW 15.7 H 15.6 H (11.5-15.5) % Neutrophils # 10.1 H 9.6 H (1.3-7.7) k/uL Sodium 151 H (137-145) mmol/L Potassium (3.5-5.1) mmol/L Chloride 119 H (98-107) mmol/L Carbon Dioxide 21 L (22-30) mmol/L Creatinine 1.27 H (0.52-1.04) mg/dL Glucose 105 H (74-99) mg/dL Calcium 8.2 L (8.4-10.2) mg/dL Total Protein 5.8 L (6.3-8.2) g/dL Albumin 2.8 L (3.5-5.0) g/dL 06/07/17 Range/Units 06:02 WBC (3.8-10.6) k/uL RBC (3.80-5.40) m/uL Hgb (11.4-16.0) gm/dL Hct (34.0-46.0) % RDW (11.5-15.5) % Neutrophils # (1.3-7.7) k/uL Sodium (137-145) mmol/L Potassium 3.1 L (3.5-5.1) mmol/L Chloride 110 H (98-107) mmol/L Carbon Dioxide (22-30) mmol/L Creatinine 1.10 H (0.52-1.04) mg/dL Glucose (74-99) mg/dL Calcium 8.2 L (8.4-10.2) mg/dL Total Protein 5.4 L (6.3-8.2) g/dL Albumin 2.6 L (3.5-5.0) g/dL Microbiology - Last 24 Hours (Table) 06/04/17 19:30 Gram Stain - Preliminary Peritoneal Fluid Body Fluid Culture - Preliminary 06/02/17 06:16 Blood Culture - Preliminary Blood No Growth after 96 hours Assessment and Plan Assessment: Impression A recent robotic hysterectomy converted to transvaginal done on 24 of May developed postop abdominal discomfort CAT scan abdomen pelvis 01 of June showed free intraperitoneal fluid and loculated air collection in the deep pelvis Abdominal x-rays on admission small bowel obstruction Postop 04 of June laparoscopic lysis of adhesions with evacuation infected pelvic hematoma abscess Abdominal pain present on admission likely due to a small bowel obstruction secondary to adhesions, infected pelvic hematoma Hypokalemia Plan Potassium replaced Encourage the use of the incentive spirometer Continue postop surgical care IV antibiotics per infectious disease Dr. Trevizo Increase activity Pain control DVT and GI prophylaxis Continue clear liquid diet will advanced as tolerated Progress note dictated for dr hou The above impression and plan of care have been discussed and directed by signing physician. Rhonda Alvarado nurse practitioner acting as scribe for signing physician. <Paul Hou - Last Filed: 06/07/17 17:46> Objective - Vital Signs Vital signs: Vital Signs Temp 98.7 F 06/07/17 15:41 Pulse 63 06/07/17 15:41 Resp 18 06/07/17 15:41 BP 138/84 06/07/17 15:41 Pulse Ox 97 06/07/17 15:41 Intake & Output 06/06/17 06/07/17 06/07/17 18:59 06:59 18:59 Intake Total 440 240 400 Output Total 1140 1260 1175 Balance -700 -1020 -775 Weight 71.668 kg Intake: Oral 440 240 400 Output: Drainage 100 260 175 Right Lower Abdomen 100 260 175 Urine 1040 1000 1000 Other: Voiding Method Toilet # Voids 1 1 1 - Labs CBC & Chem 7: 06/07/17 06:02 06/07/17 06:02 Labs: Abnormal Lab Results - Last 24 Hours (Table) 06/07/17 06/07/17 Range/Units 06:02 06:02 WBC 12.1 H (3.8-10.6) k/uL RBC 2.50 L (3.80-5.40) m/uL Hgb 7.3 L (11.4-16.0) gm/dL Hct 23.4 L (34.0-46.0) % RDW 15.6 H (11.5-15.5) % Neutrophils # 9.6 H (1.3-7.7) k/uL Potassium 3.1 L (3.5-5.1) mmol/L Chloride 110 H (98-107) mmol/L Creatinine 1.10 H (0.52-1.04) mg/dL Calcium 8.2 L (8.4-10.2) mg/dL Total Protein 5.4 L (6.3-8.2) g/dL Albumin 2.6 L (3.5-5.0) g/dL Microbiology - Last 24 Hours (Table) 06/02/17 06:16 Blood Culture - Preliminary Blood No Growth after 120 hours 06/04/17 19:30 Gram Stain - Preliminary Peritoneal Fluid Body Fluid Culture - Preliminary Assessment and Plan Assessment: As above. Patient doing quite well. She is having bowel activity now. Tolerating diet. Pain is improved. PAUL drain serosanguineous. Anticipate discharge tomorrow. (1) Bowel obstruction Current Visit: Yes Status: Acute Code(s): K56.609 - UNSP INTESTNL OBST, UNSP TO PARTIAL VERSUS COMPLETE OBST SNOMED Code(s): 67060516
[2017-06-07] MEDS: VANCOMYCIN 1,250 MG in SODIUM CHLORIDE 0.9% 250 ML IVPB SCH (09:00)
[2017-06-07] MEDS: POTASSIUM CHLORIDE ER 20 MEQ TAB.ER PO SCH ×2 (09:19→11:02)
--- NOTE | 2017-06-07 13:21 | P.PN ---
Progress Note - Text Progress Note Date: 06/07/17 La seen and evaluated. Overall she looks significantly better she is passing large amounts of flatus her abdomen is soft and initially less distended. She still has serosanguineous fluid coming from her abdomen but there is no significant blood in that specimen. She is voiding without difficulty she has not had a bowel movement, it appears that she passed approximately silver dollar size clot when she voided the last time but she been laying in bed for an extended period time prior to getting up to go to the bathroom. It is noted that her hemoglobin is again 7.3 but I back and no active area of bleeding that I can find at this time. Overall she voices no complaints and tolerating a full liquid diet well for lunch. Plan to keep current care with repeat labs in the morning with the hope to discharge her soon with continued decrease in her white blood cell count. Her incisions are otherwise clean dry and intact.
--- NOTE | 2017-06-07 19:19 | PN ---
PROGRESS NOTE DATE OF SERVICE: 06/07/2017 This 46-year-old woman who was admitted with abdominal pain, infected pelvic hematoma, had surgery. No chest pain. No palpitations. No fever. EXAM: Alert and oriented x3. Pulse is 63, blood pressure 130/84, respiration 18, temperature 98.7, pulse ox 97% on room air. HEENT: Conjunctivae normal. NECK: No jugular venous distention. CARDIOVASCULAR: S1, S2. RESPIRATORY: Breath sounds diminished in the bases. No rhonchi, no crackles. ABDOMEN: Soft, nontender. LEGS: No edema. No swelling. NERVOUS SYSTEM: No focal deficits. LABS: Hemoglobin 7.3, potassium 3.4, other labs are noted. ASSESSMENT: 1. Abdominal pain, discomfort, possible infected pelvic hematoma and partial small- bowel obstruction status post exploratory laparotomy, evacuation hematoma as well as adhesiolysis by Dr. Rosales. 2. Anemia. 3. Hyponatremia, improved. 4. Hypokalemia. 5. Increased WBC. 6. Bilateral atelectasis. 7. History of recent abdominal hysterectomy. 8. Hypothyroidism. 9. Acute renal failure. RECOMMENDATIONS AND DISCUSSION: This 46-year-old woman who presented with multiple complex medical issues, will monitor the patient closely. Continue the current management and symptomatic treatment. Otherwise at this time I recommend incentive spirometry, antibiotics. Repeat labs. Potassium supplementation. Closely follow with TRACTOR TRAILER TECHNICIAN and Surgery. Further recommendations to follow. MMTONYAL / [place]: [id number] /
--- NOTE | 2017-06-07 22:50 | P.PN ---
Subjective Progress Note Date: 06/07/17 Principal diagnosis: Pelvic abscess 46-year-old female who has a history of a hysterectomy from 05/24/2017. The procedure started as a robotic procedure was converted to a transvaginal hysterectomy. Originally the patient was doing relatively well. However then she started developing increasing amounts of abdominal pain. She also developed relatively profuse bouts of diarrhea associated with the severe lower abdominal/pelvic pain. She then developed a significant fever and presented to Hospital she was found to have evidence of the fever as well as leukocytosis. Antibiotic therapy was initiated. The patient has had some low- grade temperature continues to have leukocytosis. She is still having some abdominal discomfort. It actually worsened quite a bit this morning when she developed evidence of an ileus. With this the infectious diseases consultation was requested and the patient underwent CT scanning. Computed tomography scan does reveal evidence of abscess within the lower pelvis. Patient being treated with piperacillin tazobactam. Does relate she continues to feel poorly. Especially the onset of ileus. She's been feeling warm and febrile. She had nausea that is now improved. No hematemesis melena or hematochezia. Her profuse diarrhea has also improved. She had no melena or hematochezia June 02 2017 patient is feeling better today. Doing well with current antibiotic therapy. She relates that since changing to Merrem she had a sudden improvement of her status. Her pain improved. Her diarrhea improved. June 03, 2017 patient feeling more tired today. It is noted that her hemoglobin has dropped and is being monitored closely for any further decline. Her abdominal pain is improved. Continues to feel better as far as fever and chill after meropenem was started. Case is discussed with the java engineer stool for occult blood is being obtained. 06/04/2017 revealed that the patient continues to feel poorly today. She is not having significant fevers since antibiotic change but continues to have some leukocytosis and has some ongoing anemia requiring a blood transfusion. The case is discussed with the java engineer, is also discussed with the interventional radiologist. 06/05/2017 patient is status post be surgical intervention with exploratory laparoscopy with lysis of adhesions for small bowel obstruction, drainage of pelvic material in abscess and repair of the vaginal cuff. Patient is improved but still is having some abdominal pain. NG tube is to suction and she is feeling at her than yesterday. Pain control is adequate and she is not having any other acute difficulties 06/06/2017 patient has improved and is up walking the schumacher and is having flatus with improved abdominal pain. Fells much better since NG tube removal. He is denying nausea or emesis. Has tolerated some clear liquids in small amount without great difficulties. Does not have abdominal pain if she was having before. Denies the deep pelvic pain she was having. No fevers or chills. 06/07/2017 patient is now improved even further. She is eating a soft diet without much abdominal pain. Is only taking some Tylenol over the last 12 hours. She has had several soft stools and passing flatus without difficulties. She'll been walking the halls without much discomfort. Objective - Vital Signs Vital signs: Vital Signs Temp 97.7 F 06/07/17 20:11 Pulse 78 06/07/17 20:11 Resp 20 06/07/17 20:11 BP 138/88 06/07/17 20:11 Pulse Ox 97 06/07/17 20:11 Intake & Output 06/07/17 06/07/17 06/08/17 06:59 18:59 06:59 Intake Total 240 400 Output Total 1260 1175 Balance -1020 -775 Weight 71.668 kg Intake: Oral 240 400 Output: Drainage 260 175 Right Lower Abdomen 260 175 Urine 1000 1000 Other: # Voids 1 1 - Exam 46-year-old female who is less uncomfortable, NG tube was removed with improved abdominal function HEENT: Anicteric conjunctiva are pale but moist nasal mucosa grossly intact without significant lesions, there is no thrush. Neck: The neck is supple without significant lymphadenopathy or thyromegaly. Lungs: Good bilateral air entry without significant crackles or wheezing. There is no significant bronchial sounds. There is no egophony or dullness. Heart: Regular rate and rhythm with an audible S1-S2, no S3 no S4. There is no significant murmur click or rub, PMI was nondisplaced. Abdomen: No longer distended, few bowel sounds are heard. She has passing flatus and some discomfort from the surgical procedure. Only tenderness is over the current drain Extremities: The upper extremities have excellent pulses they are symmetric, no significant petechiae or telangiectasia. No splinter hemorrhages were noted. The lower extremities are free from significant edema. The peripheral pulses were 2+ and symmetric. Neuro: Awake alert oriented to person place and time. There are no acute new gross focal sensory motor deficits. - Labs CBC & Chem 7: 06/07/17 06:02 06/07/17 06:02 Labs: Abnormal Lab Results - Last 24 Hours (Table) 06/07/17 06/07/17 Range/Units 06:02 06:02 WBC 12.1 H (3.8-10.6) k/uL RBC 2.50 L (3.80-5.40) m/uL Hgb 7.3 L (11.4-16.0) gm/dL Hct 23.4 L (34.0-46.0) % RDW 15.6 H (11.5-15.5) % Neutrophils # 9.6 H (1.3-7.7) k/uL Potassium 3.1 L (3.5-5.1) mmol/L Chloride 110 H (98-107) mmol/L Creatinine 1.10 H (0.52-1.04) mg/dL Calcium 8.2 L (8.4-10.2) mg/dL Total Protein 5.4 L (6.3-8.2) g/dL Albumin 2.6 L (3.5-5.0) g/dL Microbiology - Last 24 Hours (Table) 06/04/17 19:30 Gram Stain - Preliminary Peritoneal Fluid Body Fluid Culture - Preliminary 06/02/17 06:16 Blood Culture - Preliminary Blood No Growth after 120 hours Laboratory Results WBC 12.1 k/uL (3.8-10.6) H 06/07/17 06:02 RBC 2.50 m/uL (3.80-5.40) L 06/07/17 06:02 Hgb 7.3 gm/dL (11.4-16.0) L 06/07/17 06:02 Hct 23.4 % (34.0-46.0) L 06/07/17 06:02 MCV 93.3 fL (80.0-100.0) 06/07/17 06:02 MCH 29.2 pg (25.0-35.0) 06/07/17 06:02 MCHC 31.3 g/dL (31.0-37.0) 06/07/17 06:02 RDW 15.6 % (11.5-15.5) H 06/07/17 06:02 Plt Count 412 k/uL (150-450) 06/07/17 06:02 Neutrophils % 79 % 06/07/17 06:02 Lymphocytes % 10 % 06/07/17 06:02 Monocytes % 6 % 06/07/17 06:02 Eosinophils % 2 % 06/07/17 06:02 Basophils % 1 % 06/07/17 06:02 Neutrophils # 9.6 k/uL (1.3-7.7) H 06/07/17 06:02 Lymphocytes # 1.2 k/uL (1.0-4.8) 06/07/17 06:02 Monocytes # 0.7 k/uL (0-1.0) 06/07/17 06:02 Eosinophils # 0.2 k/uL (0-0.7) 06/07/17 06:02 Basophils # 0.1 k/uL (0-0.2) 06/07/17 06:02 Hypochromasia Slight 06/07/17 06:02 Macrocytosis Slight 06/03/17 10:02 PT 9.5 sec (9.0-12.0) 06/04/17 02:34 INR 1.0 (<1.2) 06/04/17 02:34 APTT 24.2 sec (22.0-30.0) 06/04/17 02:34 Sodium 140 mmol/L (137-145) 06/07/17 06:02 Potassium 3.1 mmol/L (3.5-5.1) L 06/07/17 06:02 Chloride 110 mmol/L (98-107) H 06/07/17 06:02 Carbon Dioxide 22 mmol/L (22-30) 06/07/17 06:02 Anion Gap 8 mmol/L 06/07/17 06:02 BUN 10 mg/dL (7-17) 06/07/17 06:02 Creatinine 1.10 mg/dL (0.52-1.04) H 06/07/17 06:02 Est GFR (MDRD) Af Amer >60 (>60 ml/min/1.73 sqM) 06/07/17 06:02 Est GFR (MDRD) Non-Af 54 (>60 ml/min/1.73 sqM) 06/07/17 06:02 Glucose 96 mg/dL (74-99) 06/07/17 06:02 Plasma Lactic Acid Dany 0.9 mmol/L (0.7-2.0) 06/02/17 17:45 Calcium 8.2 mg/dL (8.4-10.2) L 06/07/17 06:02 Phosphorus 3.2 mg/dL (2.5-4.5) 06/04/17 02:34 Magnesium 2.2 mg/dL (1.6-2.3) 06/04/17 02:34 Iron 26 ug/dL (50-170) L 06/03/17 06:26 TIBC 279 ug/dL (228-460) 06/03/17 06:26 Iron Saturation 9.32 (12.00-45.00) L 06/03/17 06:26 Ferritin 140.4 ng/mL (10.0-291.0) 06/03/17 06:26 Total Bilirubin 0.5 mg/dL (0.2-1.3) 06/07/17 06:02 AST 16 U/L (14-36) 06/07/17 06:02 ALT 28 U/L (9-52) 06/07/17 06:02 Alkaline Phosphatase 78 U/L (38-126) 06/07/17 06:02 CK-MB (CK-2) <0.2 ng/mL (0.0-2.4) 06/04/17 02:34 Troponin I <0.012 ng/mL (0.000-0.034) 06/04/17 02:34 Total Protein 5.4 g/dL (6.3-8.2) L 06/07/17 06:02 Albumin 2.6 g/dL (3.5-5.0) L 06/07/17 06:02 Urine Color Yellow 05/30/17 00:07 Urine Appearance Clear (Clear) 05/30/17 00:07 Urine pH 7.0 (5.0-8.0) 05/30/17 00:07 Ur Specific [place] 1.044 (1.001-1.035) H 05/30/17 00:07 Urine Protein Trace (Negative) H 05/30/17 00:07 Urine Glucose (UA) Negative (Negative) 05/30/17 00:07 Urine Ketones Negative (Negative) 05/30/17 00:07 Urine Blood Large (Negative) H 05/30/17 00:07 Urine Nitrite Negative (Negative) 05/30/17 00:07 Urine Bilirubin Negative (Negative) 05/30/17 00:07 Urine Urobilinogen <2.0 mg/dL (<2.0) 05/30/17 00:07 Ur Leukocyte Esterase Small (Negative) H 05/30/17 00:07 Urine RBC >182 /hpf (0-5) H 05/30/17 00:07 Urine WBC 17 /hpf (0-5) H 05/30/17 00:07 Ur Squamous Epith Cells 3 /hpf (0-4) 05/30/17 00:07 Stool Occult Blood Negative (Negative) 06/03/17 18:25 Vancomycin Trough 11.8 ug/mL 06/06/17 08:11 Random Vancomycin 13.9 ug/mL 06/03/17 06:26 C. difficile (EIA) Intrp Negative (Negative) 05/30/17 18:28 Blood Type O Positive 06/04/17 02:39 Blood Type Recheck No 06/04/17 02:39 Antibody Screen NEGATIVE 06/04/17 02:39 Crossmatch See Detail 06/04/17 02:39 Spec Expiration Date 06/07/2017 3519 06/04/17 02:39 Microbiology 06/04/17 19:30 Peritoneal Fluid Gram Stain - Preliminary 06/04/17 19:30 Peritoneal Fluid Body Fluid Culture - Preliminary 06/02/17 06:16 Blood Blood Culture - Preliminary No Growth after 120 hours 05/30/17 22:00 Blood Blood Culture - Final No Growth after 144 hours 05/30/17 16:50 Blood Blood Culture - Final No Growth after 144 hours 06/04/17 19:30 Peritoneal Fluid Anaerobic Culture - Preliminary 05/30/17 00:07 Urine,Voided Urine Culture - Final Assessment and Plan (1) Status post vaginal hysterectomy Current Visit: Yes Status: Acute Code(s): Z90.710 - ACQUIRED ABSENCE OF BOTH CERVIX AND UTERUS SNOMED Code(s): 857844502 (2) Pelvic abscess Narrative/Plan: 46-year-old female who is status post robotic-assisted hysterectomy that was converted to a transvaginal hysterectomy who is developed fever and now an ileus. Computed tomography scan reveals evidence of fluid collections consistent with abscess within the pelvis. Antimicrobial therapy will be altered from Zosyn to meropenem which may be better tolerated especially given her significantly and diarrhea before she is showing some improvement at this time. If she does not have rapid improvement would ask interventional radiology if percutaneous drainage is possible. Cultures are in progress. She does have a leukocytosis that is somewhat persistent. She developed a significant ileus has occurred directly after having multiple loose stools. Her bowel function is being monitored the profuse diarrhea has improved this evening however is now nothing by mouth because of the ileus. 06/02/2017 patient to consult better. Is having some ice chips without any further worsening abdominal pain. Check she feels considerably better today. Is up and moving about. Is passing flatus as having some stool but it is improved from yesterday. She is impressed with the rapid improvement since the antibiotic change. If hours she has any further difficulties percutaneous drainage will be arranged. 06/03/2017 patient has more fatigue today and has been found evidence of significant anemia. Is being monitored for the need for potential transfusion. The patient had a good response to the meropenem and this will continue. Being monitored for the potential ongoing need for percutaneous drainage of abscess. 06/04/2017. The patient remains ill. She still has to be in fatigue and malaise. Required blood transfusion because of her ongoing anemia. The case is reviewed with interventional radiologist it appears that she would have better outcome if the area was surgically evaluated in consequently Dr. Rosales's been consulted and she wanted operating room later today with gynecology and general surgery to evaluate bleeding into the abdominal cavity and evacuation of the fluid collections with concern that this is infection or hematoma. Antibiotic therapy continues for now as we monitored in the postoperative time frame. 06/05/2017 the patient is status post the laparoscopy with lysis of adhesions for resolution of her small bowel obstruction, evacuation of the fluid collection and repair of the vaginal cuff. Patient is feeling better today. She is less abdominal pain, is a little uncomfortable because of the NG tube but overall feels better than 24 hours ago. Her energy level is a bit improved after her transfusion and is noted that her hemoglobin is now stable. 06/06/2017 reveals the patient having further improvement. She is up and walking the hallways and having some flatus. Abdominal pain is much improved. Leukocytosis starting to trend in the improved direction and her hemoglobin has increased without further transfusion. Overall showing improvement. Await the final cultures to direct antibiotic therapy for home. 06/07/2017 further improvement is noted. Upper walking without discomforts. Passing flatus and having bowel movements that are somewhat loose. He has no nausea or emesis. Tolerating food well with only in small amounts. Her pain is improved. The white blood cell count is showing improvement and she is afebrile. If she has further improvement would likely be discharged home tomorrow. Completion course with Augmentin will be suggested. Current Visit: Yes Status: Acute Code(s): [id number] - SNOMED Code(s): 772673073 (3) Leukocytosis Current Visit: Yes Status: Acute Code(s): D72.829 - ELEVATED WHITE BLOOD CELL COUNT, UNSPECIFIED SNOMED Code(s): 782890591
[2017-06-08] MEDS: LEVOTHYROXINE 137 MCG TAB PO SCH (06:28)
[2017-06-08 06:53] LABS: ALT 28 U/L (9-52); AST 14 U/L (14-36); Albumin 2.7 g/dL (3.5-5.0); Alkaline Phosphatase 77 U/L (38-126); Anion Gap 8 mmol/L; Blood Urea Nitrogen 7 mg/dL (7-17); Calcium 8.8 mg/dL (8.4-10.2); Carbon Dioxide 22 mmol/L (22-30); Chloride 112 mmol/L (98-107); Glucose 94 mg/dL (74-99); Potassium 3.7 mmol/L (3.5-5.1); Sodium 142 mmol/L (137-145); Total Bilirubin 0.6 mg/dL (0.2-1.3); Total Protein 5.6 g/dL (6.3-8.2)
[2017-06-08] MEDS: PANTOPRAZOLE 40 MG TABLET PO SCH (07:38)
[2017-06-08] MEDS: VANCOMYCIN 1,250 MG in SODIUM CHLORIDE 0.9% 250 ML IVPB SCH (09:45)
--- NOTE | 2017-06-08 10:06 | P.PN ---
Subjective Progress Note Date: 06/08/17 Principal diagnosis: Postop day 9 with sepsis and ileus and likely abscess of her pelvis Objective - Vital Signs Vital signs: Vital Signs Temp 98.2 F 06/08/17 07:00 Pulse 54 L 06/08/17 07:00 Resp 16 06/08/17 07:00 BP 137/86 06/08/17 07:00 Pulse Ox 94 L 06/08/17 07:00 Intake & Output 06/07/17 06/08/17 06/08/17 18:59 06:59 18:59 Intake Total 400 250 Output Total 1175 130 Balance -775 -130 250 Weight 71.668 kg Intake: Oral 400 250 Output: Drainage 175 130 Right Lower Abdomen 175 130 Urine 1000 Other: # Voids 1 1 - Exam La is seen and evaluated this morning. Her spirits are much better she is still complaining of fatigue but overall she looks much improved. She has been up ambulating quite a bit and this morning has thus far tolerated her diet which for the first time was regular. She reports that she did pass a significant amount of flatus and has had small diarrhea-like bowel movements but is much better than it was when she was admitted and was placed on the antibiotics did not agree with her. A CBC is pending today and will need to be checked. Certainly clinically she is probably stable to go home, but depending on the white blood cell count may mean that she needs to stay at least 1 or 2 more days and see if we can get that back to a normal level. Her hemoglobin also went from 87.3 yesterday so we'll need to see if that is continued to trend downward or if it is stabilized. Difficult to say if that is a true decrease or if it is a dilutional effect. On physical exam again vital signs are stable and she remains afebrile. Her heart is regular and lungs are clear at the apices have some crackles in the bases. Her abdomen is soft there is minimal distention in her incisions are intact. The PAUL drain draining basically serous fluid at this point there is only a small amount of pink tinge to the fluid. Otherwise she voices no other complaints and is stable from my standpoint. She has pain medication at home if she is able to be discharged home today we will wait for other consultants opinions and a CBC before making a final decision today. - Labs CBC & Chem 7: 06/07/17 06:02 06/08/17 06:21 Labs: Abnormal Lab Results - Last 24 Hours (Table) 06/08/17 Range/Units 06:21 Chloride 112 H (98-107) mmol/L Creatinine 1.12 H (0.52-1.04) mg/dL Total Protein 5.6 L (6.3-8.2) g/dL Albumin 2.7 L (3.5-5.0) g/dL Microbiology - Last 24 Hours (Table) 06/02/17 06:16 Blood Culture - Final Blood No Growth after 144 hours 06/04/17 19:30 Gram Stain - Preliminary Peritoneal Fluid Body Fluid Culture - Preliminary
[2017-06-08] MEDS: ALBUTEROL NEBULIZED 2.5 MG/3 ML INHALATION SCH ×3 (10:30→16:25)
[2017-06-08 10:39] LABS: Basophils # (A) 0.1 k/uL (0-0.2); Basophils % (A) 1 %; Eosinophils # (A) 0.2 k/uL (0-0.7); Eosinophils % (A) 2 %; HCT 27.9 % (34.0-46.0); HGB 8.4 gm/dL (11.4-16.0); Hypochromasia Slight; Lymphocytes # (A) 1.2 k/uL (1.0-4.8); Lymphocytes % (A) 10 %; MCH 28.3 pg (25.0-35.0); MCHC 30.2 g/dL (31.0-37.0); MCV 93.9 fL (80.0-100.0); Mean Platelet Volume 8.3; Monocytes # (A) 0.7 k/uL (0-1.0); Monocytes % (A) 6 %; Neutrophils % (A) 81 %; Platelet Count 468 k/uL (150-450); RBC 2.97 m/uL (3.80-5.40); RDW 15.7 % (11.5-15.5); WBC 12.4 k/uL (3.8-10.6)
[2017-06-08] MEDS: MEROPENEM 1 GM in SODIUM CHLORIDE 0.9% 100 ML IVPB SCH (13:21)
--- NOTE | 2017-06-08 15:19 | P.PN ---
Subjective Progress Note Date: 06/08/17 Principal diagnosis: Small bowel obstruction Patient doing well today. Still tired but otherwise feels well. Denies pain. Tolerating diet. PAUL drain 100-150 of serous fluid every 12 hours. Objective - Vital Signs Vital signs: Vital Signs Temp 98.3 F 06/08/17 11:42 Pulse 78 06/08/17 11:42 Resp 16 06/08/17 11:42 BP 141/96 06/08/17 11:42 Pulse Ox 97 06/08/17 11:42 Intake & Output 06/07/17 06/08/17 06/08/17 18:59 06:59 18:59 Intake Total 400 450 Output Total 1175 130 65 Balance -775 -130 385 Weight 71.668 kg Intake: Oral 400 450 Output: Drainage 175 130 65 Right Lower Abdomen 175 130 65 Urine 1000 Other: # Voids 1 1 1 - Exam Abdomen: Soft, nondistended, mild tenderness - Labs CBC & Chem 7: 06/08/17 06:21 06/08/17 06:21 Labs: Abnormal Lab Results - Last 24 Hours (Table) 06/08/17 06/08/17 Range/Units 06:21 06:21 WBC 12.4 H (3.8-10.6) k/uL RBC 2.97 L (3.80-5.40) m/uL Hgb 8.4 L (11.4-16.0) gm/dL Hct 27.9 L (34.0-46.0) % MCHC 30.2 L (31.0-37.0) g/dL RDW 15.7 H (11.5-15.5) % Plt Count 468 H (150-450) k/uL Neutrophils # 10.0 H (1.3-7.7) k/uL Chloride 112 H (98-107) mmol/L Creatinine 1.12 H (0.52-1.04) mg/dL Total Protein 5.6 L (6.3-8.2) g/dL Albumin 2.7 L (3.5-5.0) g/dL Microbiology - Last 24 Hours (Table) 06/02/17 06:16 Blood Culture - Final Blood No Growth after 144 hours 06/04/17 19:30 Gram Stain - Preliminary Peritoneal Fluid Body Fluid Culture - Preliminary Assessment and Plan (1) Bowel obstruction Narrative/Plan: Keep PAUL drain in place. Stable for discharge. Home on antibiotics per infectious disease. Current Visit: Yes Status: Acute Code(s): K56.609 - UNSP INTESTNL OBST, UNSP TO PARTIAL VERSUS COMPLETE OBST SNOMED Code(s): 90721980
[2017-06-08 16:30] VITALS: RESP 18
[2017-06-08 16:41] VITALS: BP 136/86; PULSE 86; TEMP 98.2
--- NOTE | 2017-06-08 21:30 | P.PN ---
Subjective Progress Note Date: 06/08/17 Principal diagnosis: Pelvic abscess 46-year-old female who has a history of a hysterectomy from 05/24/2017. The procedure started as a robotic procedure was converted to a transvaginal hysterectomy. Originally the patient was doing relatively well. However then she started developing increasing amounts of abdominal pain. She also developed relatively profuse bouts of diarrhea associated with the severe lower abdominal/pelvic pain. She then developed a significant fever and presented to Hospital she was found to have evidence of the fever as well as leukocytosis. Antibiotic therapy was initiated. The patient has had some low- grade temperature continues to have leukocytosis. She is still having some abdominal discomfort. It actually worsened quite a bit this morning when she developed evidence of an ileus. With this the infectious diseases consultation was requested and the patient underwent CT scanning. Computed tomography scan does reveal evidence of abscess within the lower pelvis. Patient being treated with piperacillin tazobactam. Does relate she continues to feel poorly. Especially the onset of ileus. She's been feeling warm and febrile. She had nausea that is now improved. No hematemesis melena or hematochezia. Her profuse diarrhea has also improved. She had no melena or hematochezia June 02 2017 patient is feeling better today. Doing well with current antibiotic therapy. She relates that since changing to Merrem she had a sudden improvement of her status. Her pain improved. Her diarrhea improved. June 03, 2017 patient feeling more tired today. It is noted that her hemoglobin has dropped and is being monitored closely for any further decline. Her abdominal pain is improved. Continues to feel better as far as fever and chill after meropenem was started. Case is discussed with the airline radio operator stool for occult blood is being obtained. 06/04/2017 revealed that the patient continues to feel poorly today. She is not having significant fevers since antibiotic change but continues to have some leukocytosis and has some ongoing anemia requiring a blood transfusion. The case is discussed with the airline radio operator, is also discussed with the interventional radiologist. 06/05/2017 patient is status post be surgical intervention with exploratory laparoscopy with lysis of adhesions for small bowel obstruction, drainage of pelvic material in abscess and repair of the vaginal cuff. Patient is improved but still is having some abdominal pain. NG tube is to suction and she is feeling at her than yesterday. Pain control is adequate and she is not having any other acute difficulties 06/06/2017 patient has improved and is up walking the schumacher and is having flatus with improved abdominal pain. Fells much better since NG tube removal. He is denying nausea or emesis. Has tolerated some clear liquids in small amount without great difficulties. Does not have abdominal pain if she was having before. Denies the deep pelvic pain she was having. No fevers or chills. 06/07/2017 patient is now improved even further. She is eating a soft diet without much abdominal pain. Is only taking some Tylenol over the last 12 hours. She has had several soft stools and passing flatus without difficulties. She'll been walking the halls without much discomfort. 06/08/2017 patient is further improved. She is eating a regular diet. Having soft stools. Abdominal pains improved. Walking without difficulties. Has no other new complaints. Is without fever or chills and is feeling well. Objective - Vital Signs Vital signs: Vital Signs Temp 98.2 F 06/08/17 15:00 Pulse 86 06/08/17 15:00 Resp 18 06/08/17 16:00 BP 136/86 06/08/17 15:00 Pulse Ox 96 06/08/17 15:00 Intake & Output 06/08/17 06/08/17 06/09/17 06:59 18:59 06:59 Intake Total 450 Output Total 130 95 Balance -130 355 Intake: Oral 450 Output: Drainage 130 95 Right Lower Abdomen 130 95 Other: # Voids 1 1 - Exam 46-year-old female who is less uncomfortable, NG tube was removed with improved abdominal function HEENT: Anicteric conjunctiva are pale but moist nasal mucosa grossly intact without significant lesions, there is no thrush. Neck: The neck is supple without significant lymphadenopathy or thyromegaly. Lungs: Good bilateral air entry without significant crackles or wheezing. There is no significant bronchial sounds. There is no egophony or dullness. Heart: Regular rate and rhythm with an audible S1-S2, no S3 no S4. There is no significant murmur click or rub, PMI was nondisplaced. Abdomen: No longer distended, few bowel sounds are heard. She has passing flatus and some discomfort from the surgical procedure. Only tenderness is over the current drain Extremities: The upper extremities have excellent pulses they are symmetric, no significant petechiae or telangiectasia. No splinter hemorrhages were noted. The lower extremities are free from significant edema. The peripheral pulses were 2+ and symmetric. Neuro: Awake alert oriented to person place and time. There are no acute new gross focal sensory motor deficits. - Labs CBC & Chem 7: 06/08/17 06:21 06/08/17 06:21 Labs: Abnormal Lab Results - Last 24 Hours (Table) 06/08/17 06/08/17 Range/Units 06:21 06:21 WBC 12.4 H (3.8-10.6) k/uL RBC 2.97 L (3.80-5.40) m/uL Hgb 8.4 L (11.4-16.0) gm/dL Hct 27.9 L (34.0-46.0) % MCHC 30.2 L (31.0-37.0) g/dL RDW 15.7 H (11.5-15.5) % Plt Count 468 H (150-450) k/uL Neutrophils # 10.0 H (1.3-7.7) k/uL Chloride 112 H (98-107) mmol/L Creatinine 1.12 H (0.52-1.04) mg/dL Total Protein 5.6 L (6.3-8.2) g/dL Albumin 2.7 L (3.5-5.0) g/dL Microbiology - Last 24 Hours (Table) 06/02/17 06:16 Blood Culture - Final Blood No Growth after 144 hours 06/04/17 19:30 Gram Stain - Preliminary Peritoneal Fluid Body Fluid Culture - Preliminary Laboratory Results WBC 12.4 k/uL (3.8-10.6) H 06/08/17 06:21 RBC 2.97 m/uL (3.80-5.40) L 06/08/17 06:21 Hgb 8.4 gm/dL (11.4-16.0) L 06/08/17 06:21 Hct 27.9 % (34.0-46.0) L 06/08/17 06:21 MCV 93.9 fL (80.0-100.0) 06/08/17 06:21 MCH 28.3 pg (25.0-35.0) 06/08/17 06:21 MCHC 30.2 g/dL (31.0-37.0) L 06/08/17 06:21 RDW 15.7 % (11.5-15.5) H 06/08/17 06:21 Plt Count 468 k/uL (150-450) H 06/08/17 06:21 Neutrophils % 81 % 06/08/17 06:21 Lymphocytes % 10 % 06/08/17 06:21 Monocytes % 6 % 06/08/17 06:21 Eosinophils % 2 % 06/08/17 06:21 Basophils % 1 % 06/08/17 06:21 Neutrophils # 10.0 k/uL (1.3-7.7) H 06/08/17 06:21 Lymphocytes # 1.2 k/uL (1.0-4.8) 06/08/17 06:21 Monocytes # 0.7 k/uL (0-1.0) 06/08/17 06:21 Eosinophils # 0.2 k/uL (0-0.7) 06/08/17 06:21 Basophils # 0.1 k/uL (0-0.2) 06/08/17 06:21 Hypochromasia Slight 06/08/17 06:21 Macrocytosis Slight 06/03/17 10:02 PT 9.5 sec (9.0-12.0) 06/04/17 02:34 INR 1.0 (<1.2) 06/04/17 02:34 APTT 24.2 sec (22.0-30.0) 06/04/17 02:34 Sodium 142 mmol/L (137-145) 06/08/17 06:21 Potassium 3.7 mmol/L (3.5-5.1) 06/08/17 06:21 Chloride 112 mmol/L (98-107) H 06/08/17 06:21 Carbon Dioxide 22 mmol/L (22-30) 06/08/17 06:21 Anion Gap 8 mmol/L 06/08/17 06:21 BUN 7 mg/dL (7-17) 06/08/17 06:21 Creatinine 1.12 mg/dL (0.52-1.04) H 06/08/17 06:21 Est GFR (MDRD) Af Amer >60 (>60 ml/min/1.73 sqM) 06/08/17 06:21 Est GFR (MDRD) Non-Af 53 (>60 ml/min/1.73 sqM) 06/08/17 06:21 Glucose 94 mg/dL (74-99) 06/08/17 06:21 Plasma Lactic Acid Dany 0.9 mmol/L (0.7-2.0) 06/02/17 17:45 Calcium 8.8 mg/dL (8.4-10.2) 06/08/17 06:21 Phosphorus 3.2 mg/dL (2.5-4.5) 06/04/17 02:34 Magnesium 2.2 mg/dL (1.6-2.3) 06/04/17 02:34 Iron 26 ug/dL (50-170) L 06/03/17 06:26 TIBC 279 ug/dL (228-460) 06/03/17 06:26 Iron Saturation 9.32 (12.00-45.00) L 06/03/17 06:26 Ferritin 140.4 ng/mL (10.0-291.0) 06/03/17 06:26 Total Bilirubin 0.6 mg/dL (0.2-1.3) 06/08/17 06:21 AST 14 U/L (14-36) 06/08/17 06:21 ALT 28 U/L (9-52) 06/08/17 06:21 Alkaline Phosphatase 77 U/L (38-126) 06/08/17 06:21 CK-MB (CK-2) <0.2 ng/mL (0.0-2.4) 06/04/17 02:34 Troponin I <0.012 ng/mL (0.000-0.034) 06/04/17 02:34 Total Protein 5.6 g/dL (6.3-8.2) L 06/08/17 06:21 Albumin 2.7 g/dL (3.5-5.0) L 06/08/17 06:21 Urine Color Yellow 05/30/17 00:07 Urine Appearance Clear (Clear) 05/30/17 00:07 Urine pH 7.0 (5.0-8.0) 05/30/17 00:07 Ur Specific [place] 1.044 (1.001-1.035) H 05/30/17 00:07 Urine Protein Trace (Negative) H 05/30/17 00:07 Urine Glucose (UA) Negative (Negative) 05/30/17 00:07 Urine Ketones Negative (Negative) 05/30/17 00:07 Urine Blood Large (Negative) H 05/30/17 00:07 Urine Nitrite Negative (Negative) 05/30/17 00:07 Urine Bilirubin Negative (Negative) 05/30/17 00:07 Urine Urobilinogen <2.0 mg/dL (<2.0) 05/30/17 00:07 Ur Leukocyte Esterase Small (Negative) H 05/30/17 00:07 Urine RBC >182 /hpf (0-5) H 05/30/17 00:07 Urine WBC 17 /hpf (0-5) H 05/30/17 00:07 Ur Squamous Epith Cells 3 /hpf (0-4) 05/30/17 00:07 Stool Occult Blood Negative (Negative) 06/03/17 18:25 Vancomycin Trough 11.8 ug/mL 06/06/17 08:11 Random Vancomycin 13.9 ug/mL 06/03/17 06:26 C. difficile (EIA) Intrp Negative (Negative) 05/30/17 18:28 Blood Type O Positive 06/04/17 02:39 Blood Type Recheck No 06/04/17 02:39 Antibody Screen NEGATIVE 06/04/17 02:39 Crossmatch See Detail 06/04/17 02:39 Spec Expiration Date 06/07/2017 - 0794 06/04/17 02:39 Microbiology 06/02/17 06:16 Blood Blood Culture - Final No Growth after 144 hours 06/04/17 19:30 Peritoneal Fluid Gram Stain - Preliminary 06/04/17 19:30 Peritoneal Fluid Body Fluid Culture - Preliminary 05/30/17 22:00 Blood Blood Culture - Final No Growth after 144 hours 05/30/17 16:50 Blood Blood Culture - Final No Growth after 144 hours 06/04/17 19:30 Peritoneal Fluid Anaerobic Culture - Preliminary 05/30/17 00:07 Urine,Voided Urine Culture - Final Assessment and Plan (1) Status post vaginal hysterectomy Status: Acute Code(s): Z90.710 - ACQUIRED ABSENCE OF BOTH CERVIX AND UTERUS SNOMED Code(s): 752891093 (2) Pelvic abscess Narrative/Plan: 46-year-old female who is status post robotic-assisted hysterectomy that was converted to a transvaginal hysterectomy who is developed fever and now an ileus. Computed tomography scan reveals evidence of fluid collections consistent with abscess within the pelvis. Antimicrobial therapy will be altered from Zosyn to meropenem which may be better tolerated especially given her significantly and diarrhea before she is showing some improvement at this time. If she does not have rapid improvement would ask interventional radiology if percutaneous drainage is possible. Cultures are in progress. She does have a leukocytosis that is somewhat persistent. She developed a significant ileus has occurred directly after having multiple loose stools. Her bowel function is being monitored the profuse diarrhea has improved this evening however is now nothing by mouth because of the ileus. 06/02/2017 patient to consult better. Is having some ice chips without any further worsening abdominal pain. Check she feels considerably better today. Is up and moving about. Is passing flatus as having some stool but it is improved from yesterday. She is impressed with the rapid improvement since the antibiotic change. If hours she has any further difficulties percutaneous drainage will be arranged. 06/03/2017 patient has more fatigue today and has been found evidence of significant anemia. Is being monitored for the need for potential transfusion. The patient had a good response to the meropenem and this will continue. Being monitored for the potential ongoing need for percutaneous drainage of abscess. 06/04/2017. The patient remains ill. She still has to be in fatigue and malaise. Required blood transfusion because of her ongoing anemia. The case is reviewed with interventional radiologist it appears that she would have better outcome if the area was surgically evaluated in consequently Dr. Rosales's been consulted and she wanted operating room later today with gynecology and general surgery to evaluate bleeding into the abdominal cavity and evacuation of the fluid collections with concern that this is infection or hematoma. Antibiotic therapy continues for now as we monitored in the postoperative time frame. 06/05/2017 the patient is status post the laparoscopy with lysis of adhesions for resolution of her small bowel obstruction, evacuation of the fluid collection and repair of the vaginal cuff. Patient is feeling better today. She is less abdominal pain, is a little uncomfortable because of the NG tube but overall feels better than 24 hours ago. Her energy level is a bit improved after her transfusion and is noted that her hemoglobin is now stable. 06/06/2017 reveals the patient having further improvement. She is up and walking the hallways and having some flatus. Abdominal pain is much improved. Leukocytosis starting to trend in the improved direction and her hemoglobin has increased without further transfusion. Overall showing improvement. Await the final cultures to direct antibiotic therapy for home. 06/07/2017 further improvement is noted. Upper walking without discomforts. Passing flatus and having bowel movements that are somewhat loose. He has no nausea or emesis. Tolerating food well with only in small amounts. Her pain is improved. The white blood cell count is showing improvement and she is afebrile. If she has further improvement would likely be discharged home tomorrow. Completion course with Augmentin will be suggested. 06/08/2017 further improvement. She is able to ambulate without difficulties. She is eating solid food without difficulties. Pain is much improved. Only taking Tylenol. Will be discharged home today. [facility] With blood cell count is at 12.4. However she had significant blood loss anemia and is having some leukocytosis as well as thrombocytosis in response to this event. She was found in the outpatient setting by her primary care physician. Status: Acute Code(s): ZJF7903 - SNOMED Code(s): 313726247 (3) Leukocytosis Status: Acute Code(s): D72.829 - ELEVATED WHITE BLOOD CELL COUNT, UNSPECIFIED SNOMED Code(s): 794442599
--- NOTE | 2017-06-08 22:49 | PN ---
PROGRESS NOTE DATE OF SERVICE: 06/08/2017. INTERVAL HISTORY: This 46-year-old woman was admitted with abdominal pain had possibly infected pelvic hematoma. The patient had surgery and please refer to Dr. Rosales's evaluation for further details. The patient improved significantly. No chest pain. No palpitations. No fever. EXAM: Alert and oriented times three. Pulse 86, blood pressure 130/60, respiration 18, temperature 98.2, pulse ox 98% on room air. HEENT Conjunctivae normal. Neck is no jugular venous distention. Cardiovascular: S1, S2 muffled. Respiratory: Breath sounds diminished in the bases. No rhonchi and no crackles. Abdomen is soft, status post surgery. Legs are no edema. No swelling. Central nervous system: No focal deficits. LABORATORY DATA: WBC 12.8, hemoglobin is 8.4, sodium 140, potassium 3.7. ASSESSMENT: 1. Abdominal pain, discomfort, possibly infected pelvic hematoma and partial small- bowel obstruction status post exploratory laparotomy, evacuation of hematoma, adhesiolysis, by Dr. Rosales. 2. Anemia. 3. Hyponatremia, improved. 4. Hypokalemia. 5. Increased WBC. 6. Bilateral atelectasis. 7. History of recent abdominal hysterectomy. 8. Hypothyroidism. 9. Acute renal failure, improved. RECOMMENDATIONS AND DISCUSSION: Recommend to continue current medications, symptomatic treatment, monitoring, management. I would recommend to follow with Dr. Man and Dr. Rosales and [facility]. Otherwise antibiotics. Outpatient incentive spirometry and also I would also recommend close follow up with primary physician and continue with a course of antibiotics and as well as bronchodilators. Further recommendations to follow. MMODL / IJN: [id number] /
== END 2017-06-08 16:55 | disposition home or self-care (01) | DRG 335 ==
LOC: EC 20:15 → 6PED 21:20
PROVIDERS: ADMIT Obstetrics & Gynecology; ATTEND Obstetrics & Gynecology
PROC: 0WCJ4ZZ Extirpation of Matter from Pelvic Cavity, Percutaneous Endoscopic Approach (ICD-10-PCS; 2017-06-04)
PROC: 30233N1 Transfusion of Nonautologous Red Blood Cells into Peripheral Vein, Percutaneous Approach (ICD-10-PCS; 2017-06-04)
PROC: 0DNU4ZZ Release Omentum, Percutaneous Endoscopic Approach (ICD-10-PCS; principal; 2017-06-04 18:10)
DX: K91.89 Other postprocedural complications and disorders of digestive system (principal); A41.9 Sepsis, unspecified organism; N17.9 Acute kidney failure, unspecified; K56.50 Intestinal adhesions [bands], unspecified as to partial versus complete obstruction; K56.7 Ileus, unspecified; E87.0 Hyperosmolality and hypernatremia; E87.1 Hypo-osmolality and hyponatremia; J98.11 Atelectasis; E03.9 Hypothyroidism, unspecified; N73.9 Female pelvic inflammatory disease, unspecified; R19.7 Diarrhea, unspecified; E87.6 Hypokalemia; N94.89 Other specified conditions associated with female genital organs and menstrual cycle; R53.83 Other fatigue; D50.0 Iron deficiency anemia secondary to blood loss (chronic); Z79.1 Long term (current) use of non-steroidal anti-inflammatories (NSAID); Z79.899 Other long term (current) drug therapy; Z90.710 Acquired absence of both cervix and uterus; Z79.891 Long term (current) use of opiate analgesic; Z82.49 Family history of ischemic heart disease and other diseases of the circulatory system; Z87.891 Personal history of nicotine dependence
CPT/HCPCS: 36415; 71045; 74019; 74177; 74430; 80048; 80053; 80202; 81001; 82272; 82553; 82728; 83540; 83550; 83605; 83735; 84100; 84484; 85025; 85610; 85730; 86850; 86900; 86901; 86920; 87040; 87070; 87075; 87086; 87205; 87324; 93005; 94640; 96361; 96374; 99285